=== PATIENT | female | born 1950 | race Caucasian/White ===

== ENCOUNTER 2022-11-15 10:03 | Outpatient (OUT) | payer MEDICARE, OTHER, SELFPAY ==
[2022-11-15 11:28] LABS: Thyroid Stimulating Hormone 1.974 uIU/mL (0.358-3.740)
[2022-11-15 11:35] LABS: Free T4 1.14 ng/dL (0.76-1.46)
== END 2022-11-15 10:04 | disposition home or self-care (01) ==
LOC: LAB 10:08
PROVIDERS: PCP Internal Medicine; Visit Provider Internal Medicine
DX: E21.3 Hyperparathyroidism, unspecified (principal); E89.0 Postprocedural hypothyroidism
CPT/HCPCS: 36415; 82310; 83970; 84439; 84443

== ENCOUNTER 2023-01-02 09:41 | Outpatient (RCR) | payer MEDICARE, OTHER, SELFPAY | END 2023-01-03 13:27 | disposition home or self-care (01) | LOC: PT 09:41 | PROVIDERS: PCP Internal Medicine; Visit Provider Internal Medicine | DX: M43.6 Torticollis (principal) | CPT/HCPCS: 97161 ==

== ENCOUNTER 2023-10-17 07:54 | Outpatient (OUT) | payer MEDICARE, OTHER, SELFPAY ==
[2023-10-17 08:26] LABS: Basophils Percent Auto 0.5 % (0.2-2.0); Eosinophils Absolute Auto 0.2 10^3/uL (0.0-0.7); Eosinophils Percent Auto 3.5 % (0.9-7.0); Hematocrit 45.6 % (36.0-48.0); Hemoglobin 15.5 g/dL (12.0-16.0); Immature Granulocytes Abs Auto 0.01 10^3/uL (0.00-0.03); Immature Granulocytes Pct Auto 0.2 % (0.0-0.5); Lymphocytes Absolute Auto 1.9 10^3/uL (1.2-3.8); Mean Corpuscular Hemoglobin 29.9 pg (26.7-34.0); Mean Corpuscular Volume 87.9 fL (81.0-99.0); Mean Platelet Volume 10.1 fL (9.5-13.5); Monocytes Absolute Auto 0.6 10^3/uL (0.3-0.8); Monocytes Percent Auto 8.9 % (1.7-12.0); Neutrophils Absolute Auto 3.6 10^3/uL (1.4-6.5); Neutrophils Percent Auto 56.9 % (43.0-75.0); Platelet Count 195 10^3/uL (150-450); Red Blood Count 5.19 10^6/uL (4.20-5.40); Red Cell Distribution Width 11.9 % (11.0-15.0); White Blood Count 6.3 10^3/uL (4.0-11.0)
[2023-10-17 08:59] LABS: Alanine Aminotransferase 30 U/L (14-59); Albumin Globulin Ratio 1.2; Albumin Level 3.7 g/dL (3.4-5.0); Alkaline Phosphatase 95 U/L (46-116); Anion Gap 13.9; Aspartate Amino Transferase 17 U/L (15-37); BUN Creatinine Ratio 16.4; Bilirubin Total 1.1 mg/dL (0.2-1.0); Calcium 8.6 mg/dL (8.5-10.1); Carbon Dioxide 25.8 mmol/L (21.0-32.0); Chloride 106 mmol/L (98-107); Chol HDL Ratio 2.9; Cholesterol 163 mg/dL (<=200); Estimated GFR (African America >60 (>=60); Estimated GFR (Non-African Ame >60 (>=60); Globulin 3.2 g/dL; Glucose 99 mg/dL (74-106); HDL Cholesterol 57 mg/dL (40-60); LDL Cholesterol Calculated 85.6 mg/dL; Potassium 3.7 mmol/L (3.5-5.1); Sodium 142 mmol/L (136-145); Thyroid Stimulating Hormone 2.196 uIU/mL (0.358-3.740); Total Protein 6.9 g/dL (6.4-8.2); Triglycerides 102 mg/dL (<=150); VLDL CHOLESTEROL 20.4 mg/dL
[2023-10-17 09:49] LABS: Free T4 1.23 ng/dL (0.76-1.46)
[2023-10-18 12:09] LABS: PTH, Intact 17 pg/mL (15-65)
== END 2023-10-17 07:55 | disposition home or self-care (01) ==
LOC: LAB 07:56
PROVIDERS: PCP Internal Medicine; Visit Provider Internal Medicine
DX: E78.2 Mixed hyperlipidemia (principal); E89.0 Postprocedural hypothyroidism; E55.9 Vitamin D deficiency, unspecified; E21.3 Hyperparathyroidism, unspecified
CPT/HCPCS: 36415; 80053; 80061; 82306; 83970; 84439; 84443; 85025

== ENCOUNTER 2023-12-08 10:43 | Outpatient (OUT) | payer MEDICARE, OTHER, SELFPAY ==
--- OUTSIDE RECORDS SUMMARY | 2023-12-08 10:50 | XMS_ITS | CCD ---
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 Role Phone LISETTE WRIGHT Primary Care Unavailable BRANDON BETANCOURT Admitting Unavailable BRANDON BETANCOURT Attending Unavailable DR JACQUELINE CRUZ Consulting Unavailable BRANDON BETANCOURT Consulting Unavailable DR LISETTE WRIGHT Admitting Amy MAYORGA, DR LISETTE Wilson Attending LISETTE Santana Primary Care Unavailable JORDAN MAYORGA, DR LISETTE Wilson Consulting DO Lisette Olmedo Primary Care Provider DO Lisette Wooten Attending Provider DINORA ESPINAL Attending Unavailable Lisette Wooten Primary Care Unavailable Dinora Espinal Attending Unavailable Dinora Espinal Admitting Unavailable Allergies Allergy Classification Reported Allergen(s) Allergy Type Date of Onset Reaction(s) Facility (1 source) Acetylcysteine Drug Allergy 2 [facility] Repository (2 sources) Diclofenac Drug Allergy 1 Redness of Skin [facility] Repository (2 sources) Acetylcysteine; Translations: [acetylcysteine] Drug Allergy 2 [facility] (1 source) Diclofenac Drug Allergy [address] [place] [address] Repository Medications Current Medications Medication Drug Class(es) Dates Sig (Normalized) Sig (Original) aspirin 81 mg delayed release oral tablet (1 source) Platelet Aggregation Inhibitor, Nonsteroidal Anti-inflammator y Drug Start: 06-29-19 take 81 mg by mouth once daily Aspirin Active 81 MG PO Daily June 27, 2021 11:00pm atorvastatin 40 mg oral tablet (1 source) HMG-CoA Reductase Inhibitor Start: 06-29-19 take 40 mg by mouth once daily at bedtime Atorvastatin Active 40 MG PO Daily at bedtime June 27, 2021 11:00pm biotin 5 mg disintegrating oral tablet (1 source) Start: 06-29-19 take 5000 ug by mouth once daily Biotin Active 5000 MCG PO Daily June 27, 2021 11:00pm Calcium (1 source) Phosphate Binder, Calcium Start: 06-29-19 take 100 mg by mouth once daily Calcium Active 100 MG PO Daily June 27, 2021 11:00pm calcium carbonate 1500 mg / cholecalciferol 0.01 mg oral capsule (1 source) Vitamin D Start: 06-29-19 Calcium Carbonate-Vitamin D3 Active 1 CAP PO As Directed June 27, 2021 11:00pm cholecalciferol 0.05 mg oral tablet (1 source) Vitamin D Start: 06-29-19 take 1 tablet by mouth once daily Cholecalciferol (Vitamin D3) (Vitamin D3) 50 mcg (2,000 unit) Tablet Active 50 MCG PO Daily June 27, 2021 11:00pm ketoconazole 20 mg/ml topical cream (1 source) Azole Antifungal Start: 06-29-19 Ketoconazole Active 1 APPLIC TOPICAL Twice daily June 27, 2021 11:00pm levothyroxine sodium 0.05 mg oral tablet (1 source) l-Thyroxine Start: 06-29-19 take 50 ug by mouth once daily Levothyroxine Active 50 MCG PO Daily June 27, 2021 11:00pm Magnesium (1 source) Start: 06-29-19 take 1 tablet by mouth once daily Magnesium Active 50 TAB PO Daily June 27, 2021 11:00pm methylsulfonylmethane 500 mg oral capsule (1 source) Start: 06-29-19 Methylsulfonylmethane Active 500 MG PO As Directed June 27, 2021 11:00pm Multivitamin preparation (1 source) Start: 06-29-19 take 1 tablet by mouth once daily Multivitamin Active 1 TAB PO Daily June 27, 2021 11:00pm mupirocin 0.02 mg/mg topical ointment (1 source) RNA Synthetase Inhibitor Antibacterial Start: 06-29-19 Mupirocin Active 1 APPLIC TOPICAL Twice daily June 27, 2021 11:00pm Pennington-3 Fatty Acids (1 source) Start: 06-29-19 take 1250 mg by mouth once daily Pennington-3 Fatty Acids Active 1250 MG PO Daily June 27, 2021 11:00pm rOPINIRole 0.25 mg oral tablet (1 source) Nonergot Dopamine Agonist Start: 06-29-19 take 0.25 mg by mouth three times daily Ropinirole Active 0.25 MG PO Three times daily June 27, 2021 11:00pm terbinafine 250 mg oral tablet (1 source) Allylamine Antifungal Start: 06-29-19 take 250 mg by mouth once daily Terbinafine Hcl Active 250 MG PO Daily June 27, 2021 11:00pm Vitamin B Complex (1 source) Start: 06-29-19 take 1 capsule by mouth once daily Vitamin B Complex Active 1 CAP PO Daily June 27, 2021 11:00pm Problems Active Problems Problem Classification Problem Date Documented Date Episodic/Chronic Complications of surgical procedures or medical care (1 source) Postprocedural hypothyroidism; Translations: [POSTPROCEDURAL HYPOTHYROIDISM] Onset: 05-30-2022 Chronic Disorders of lipid metabolism (1 source) Mixed hyperlipidemia; Translations: [MIXED HYPERLIPIDEMIA] Onset: 05-30-2022 Chronic Nutritional deficiencies (4 sources) Vitamin D deficiency, unspecified; Translations: [VITAMIN D DEFICIENCY UNSPECIFIED] Onset: 05-26-2022 Chronic Other and unspecified benign neoplasm (1 source) History of polyp of colon; Translations: [Personal history of colonic polyps] 06-28-2021 Episodic Other endocrine disorders (1 source) Hyperparathyroidism, unspecified; Translations: [HYPERPARATHYROIDISM UNSPECIFIED] Onset: 05-30-2022 Chronic Unclassified (1 source) Encounter for screening mammogram for malignant neoplasm of breast; Translations: [Encounter for screening mammogram for malignant neoplasm of breast] Onset: 06-27-2023 Past or Other Problems Problem Classification Problem Date Documented Da te Episodic/Chronic Abdominal pain (4 sources) Unspecified abdominal pain; Translations: [UNSPECIFIED ABDOMINAL PAIN] Onset: 02-08-2022 Episodic Results Test Name Value Interpretation Reference Range Facil ity MM screening mammo BI w/CADo n 06-27-2023 MM screening mammo BI w/CAD [facility] [address] [place] [id number] Mammography Report Signed Patient: Xiomara Blanco MR#: [id number] : 1950 Acct:[id number] Age/Sex: 73 / F ADM Date: 06/27/23 Loc: [place] Room: Type: [facility] Attending Dr: Dinora Espinal DO Copies to: DO Dinora Santillan DO Ordering Provider: Dinora Espinal DO Date of Service: 06/27/23 MM/MM screening mammo BI w/CAD: SCREENING CLINICAL DATA: Screening for malignancy. SCREENING MAMMOGRAM - FULL FIELD DIGITAL WITH TOMOSYNTHESIS AND CAD COMPARISON:Mammogram s dating back to 2019. Tomosynthesis craniocaudal and mediolateral oblique views of both breasts were obtained using low- dose digital technique. This examination was reviewed with the aid of CAD. FINDINGS: The breast tissue is composed of scattered fibroglandular densities. There are no dominant masses, typically malignant calcifications or architectural distortion. There has been no significant interval change. MM/MM screening mammo BI w/CAD IMPRESSION: NO MAMMOGRAPHIC EVIDENCE OF MALIGNANCY. ROUTINE FOLLOW-UP IS RECOMMENDED IN ONE YEAR. RESULT CODE: 1 Negative DENSITY CODE: 2 (approximately 25-50% glandular) FOLLOW UP: 1YR The false-negative rate of mammography is approximately 10-percent. Management of a palpable abnormality must be based on clinical grounds. Patient was entered into a reminder system with a target due date for the next mammogram. Impression dictated by: Clay Carballo Jr., D.O.06/27/2023 11:40 AM Dictation Location: [facility] Transcribed By: [facility] 06/27/23 1140 Dictated By: Clay Carballo Jr, DO 06/27/23 1138 Signed By: 06/27/23 1140 [facility] PTH INTACTon 05-27-2022 PTH, Intact 12 pg/mL Critically low 15-65 [facility] Comment on above: Performed By: #### P THINT #### [facility] [address] [place] [address] Dr. Sharmila Mitchell FREE T4on 05-26-2022 Free T4 [Mass/Vol] 1.27 ng/dL Normal 0.76-1.46 [facility] Comment on above: Performed By: #### F T4, VITAD #### [facility] [address] [address] [address] Sharmila Mitchell LIPID PROFILEon 05-26-2022 CHOL-HDL RATIO NORM SEE BELOW Normal [facility] Comment on above: Result Comment: 3.3 - 4.4 LOW RISK 4.4 - 7.1 AVERAGE RISK 7.1 - 11.0 MODERATE RISK >11.0 HIGH RISK Performed By: #### L IPID, TSH, CMP #### [facility] [address] [address] [address] Sharmila Mitchell Cholesterol [Mass/Vol] 141 mg/dL Normal <=200 [facility] Comment on above: Performed By: #### L IPID, TSH, CMP #### [facility] [address] [address] [address] Sharmila Mitchell Cholesterol in HDL [Mass/Vol] 56 mg/dL Normal 40-60 [facility] Comment on above: Performed By: #### L IPID, TSH, CMP #### [facility] [address] [address] [address] Sharmila Mitchell Cholesterol in LDL [Mass/Vol] 68.4 mg/dL Normal [facility] Comment on above: Performed By: #### L IPID, TSH, CMP #### [facility] [address] [address] [address] Sharmila Mitchell Cholesterol.total/C holesterol in HDL [Mass ratio] 2.5 {ratio} Normal [facility] Comment on above: Performed By: #### L IPID, TSH, CMP #### [facility] [address] [address] [address] Sharmila Mitchell HDL NORMAL > or = 60 mg/dl - LOW CARDIOVASCULAR RISK <40 mg/dl - HIGH CARDIOVASCULAR RISK Normal [facility] Comment on above: Performed By: #### L IPID, TSH, CMP #### [facility] [address] [address] [address] Sharmila Mitchell LDL CALC NORMAL SEE BELOW Normal [facility] Comment on above: Result Comment: <100 mg/dl OPTIMAL 100 - 129 mg/dl NEAR OR ABOVE OPTIMAL 130 - 159 mg/dl BORDERLINE HIGH 160 - 189 mg/dl HIGH >190 mg/dl VERY HIGH Performed By: #### L IPID, TSH, CMP #### [facility] [address] [place] [address] Dr. Sharmila Mitchell Triglyceride [Mass/Vol] 83 mg/dL Normal <=150 [facility] Comment on above: Performed By: #### L IPID, TSH, CMP #### [facility] [address] [address] [address] Sharmila Mitchell VLDL CALC 16.6 mg/dL Normal [facility] Comment on above: Performed By: #### L IPID, TSH, CMP #### [facility] [address] [place] [address] Dr. Sharmila Mitchell PROF 14(COMP METB)on 023 Albumin [Mass/Vol] 4.1 g/dL Normal 3.4-5.0 [facility] Comment on above: Performed By: #### L IPID, TSH, CMP #### [facility] [address] [place] [address] Dr. Sharmila Mitchell Albumin/Globulin [Mass ratio] 1.3 {ratio} Normal [facility] Comment on above: Performed By: #### L IPID, TSH, CMP #### [facility] [address] [place] [address] Dr. Sharmila Mitchell ALP [Catalytic activity/Vol] 84 U/L Normal 46-116 [facility] Comment on above: Performed By: #### L IPID, TSH, CMP #### [facility] [address] [place] [address] Dr. Sharmila Mitchell ALT [Catalytic activity/Vol] 26 U/L Normal 14-59 [facility] Comment on above: Performed By: #### L IPID, TSH, CMP #### [facility] [address] [place] [address] Dr. Sharmila Mitchell Anion gap [Moles/Vol] 14.3 mmol/L Normal [facility] Comment on above: Performed By: #### L IPID, TSH, CMP #### [facility] [address] [place] [address] Dr. Sharmila Mitchell AST [Catalytic activity/Vol] 18 U/L Normal 15-37 [facility] Comment on above: Performed By: #### L IPID, TSH, CMP #### [facility] [address] [place] [address] Dr. Sharmila Mitchell Bilirubin [Mass/Vol] 1.0 mg/dL Normal 0.2-1.0 [facility] Comment on above: Performed By: #### L IPID, TSH, CMP #### [facility] [address] [place] [address] Dr. Sharmila Mitchell Calcium [Mass/Vol] 9.2 mg/dL Normal 8.5-10.1 [facility] Comment on above: Performed By: #### L IPID, TSH, CMP #### [facility] [address] [place] [address] Dr. Sharmila Mitchell Chloride [Moles/Vol] 105 mmol/L Normal 98-107 [facility] Comment on above: Performed By: #### L IPID, TSH, CMP #### [facility] [address] [place] [address] Dr. Sharmila Mitchell CO2 [Moles/Vol] 25.4 mmol/L Normal 21.0-32.0 [facility] Comment on above: Performed By: #### L IPID, TSH, CMP #### [facility] [address] [place] [address] Dr. Sharmila Mitchell Creatinine [Mass/Vol] 0.69 mg/dL Normal 0.55-1.02 [facility] Comment on above: Performed By: #### L IPID, TSH, CMP #### [facility] [address] [place] [address] Dr. Sharmila Mitchell EGFR-AF [place] CITIZ[place] >60 Normal >=60 [facility] Comment on above: Performed By: #### L IPID, TSH, CMP #### [facility] [address] [place] [address] Dr. Sharmila Mitchell EGFR-NON AF [place] CITIZ[place] >60 Normal >=60 [facility] Comment on above: Performed By: #### L IPID, TSH, CMP #### [facility] [address] [address] [address] Sharmila Mitchell Globulin (S) [Mass/Vol] 3.1 g/dL Normal [facility] Comment on above: Performed By: #### L IPID, TSH, CMP #### [facility] [address] [place] [address] Dr. Sharmila Mitchell Glucose [Mass/Vol] 103 mg/dL Normal 74-106 [facility] Comment on above: Performed By: #### L IPID, TSH, CMP #### [facility] [address] [place] [address] Dr. Sharmila Mitchell Potassium [Moles/Vol] 3.7 mmol/L Normal 3.5-5.1 [facility] Comment on above: Performed By: #### L IPID, TSH, CMP #### [facility] [address] [place] [address] Dr. Sharmila Mitchell Protein [Mass/Vol] 7.2 g/dL Normal 6.4-8.2 [facility] Comment on above: Performed By: #### L IPID, TSH, CMP #### [facility] [address] [place] [address] Dr. Sharmila Mitchell Sodium [Moles/Vol] 141 mmol/L Normal 136-145 [facility] Comment on above: Performed By: #### L IPID, TSH, CMP #### [facility] [address] [place] [address] Dr. Sharmila Mitchell Urea nitrogen [Mass/Vol] 10.0 mg/dL Normal 7.0-18.0 [facility] Comment on above: Performed By: #### L IPID, TSH, CMP #### [facility] [address] [place] [address] Dr. Sharmila Mitchell Urea nitrogen/Creatinine [Mass ratio] 14.5 mg/mg Normal [facility] Comment on above: Performed By: #### L IPID, TSH, CMP #### [facility] [address] [place] [address] Dr. Sharmila Mitchell TSHon 05-26-2022 TSH 1.836 uIU/mL Normal 0.358-3.740 [facility] Comment on above: Performed By: #### L IPID, TSH, CMP #### [facility] [address] [place] [address] Dr. Sharmila Mitchell VITAMIN D 25 OHon 05-26-2022 VIT D 25-OH 67.7 ng/mL Normal [facility] Comment on above: Performed By: #### F T4, VITAD #### [facility] [address] [place] [address] Dr. Sharmila Mitchell VIT D RANGES SEE BELOW Normal [facility] Comment on above: Result Comment: <20 ng/mL Vit D deficient 20 - <30 ng/mL Vit D insufficient 30 - 100 ng/mL Vit D sufficient >100 ng/mL Potential Toxicity Performed By: #### F T4, VITAD #### [facility] [address] [place] [address] Dr. Sharmila Mitchell CBC AUTO DIFFon 02-08-2022 BASO # 0.0 103/ul Normal 0.0-0.1 [facility] Comment on above: Performed By: #### CHAITANYA SALINASRO #### [facility] [address] [place] [address] Dr. Sharmila Mitchell Basophils/100 WBC (Bld) 0.3 % Normal 0.2-2.0 [facility] Comment on above: Performed By: #### Arik RAYGOZA UMICRO #### [facility] [address] [place] [address] Dr. Sharmila Mitchell EO # 0.2 103/ul Normal 0.0-0.7 [facility] Comment on above: Performed By: #### Arik RAYGOZA UMICRO #### [facility] [address] [place] [address] Dr. Sharmila Mitchell Eosinophils/100 WBC (Bld) 2.6 % Normal 0.9-7.0 [facility] Comment on above: Performed By: #### CHAITANYA SALINASRO #### [facility] [address] [place] [address] Dr. Sharimla Mitchell Erythrocyte distribution width (RBC) [Ratio] 12.2 % Normal 11.0-15.0 [facility] Comment on above: Performed By: #### CHAITANYA SALINASRO #### [facility] [address] [place] [address] Dr. Sharmila Mitchell Hematocrit (Bld) [Volume fraction] 47.2 % Normal 36.0-48.0 [facility] Comment on above: Performed By: #### Arik RAYGOZA UMICRO #### [facility] [address] [place] [address] Dr. Sharmila Mitchell Hemoglobin (Bld) [Mass/Vol] 16.3 g/dL Critically high 12.0-16.0 [facility] Comment on above: Performed By: #### Arik RAYGOZA UMICRO #### [facility] [address] [place] [address] Dr. Sharmila Mitchell IG # 0.02 10e3/ul Normal 0.00-0.03 [facility] Comment on above: Performed By: #### Arik RAYGOZA UMICRO #### [facility] [address] [place] [address] Dr. Sharmila Mitchell IG % 0.3 % Normal 0.0-0.5 [facility] Comment on above: Performed By: #### Arik RAYGOZA UMICRO #### [facility] [address] [place] [address] Dr. Sharmila Mitchell LYMPH # 1.9 103/ul Normal 1.2-3.8 [facility] Comment on above: Performed By: #### Arik RAYGOZA UMICRO #### [facility] [address] [place] [address] Dr. Sharmila Mitchell Lymphocytes/100 WBC (Bld) 28.4 % Normal 20.5-60.0 [facility] Comment on above: Performed By: #### Arik RAYGOZA UMICRO #### [facility] [address] [place] [address] Dr. Sharmila Mitchell MANUAL DIFF REQ NO Normal [facility] Comment on above: Performed By: #### Arik RAYGOZA UMICRO #### [facility] [address] [place] [address] Dr. Sharmila Mitchell MCH (RBC) [Entitic mass] 30.0 pg Normal 26.7-34.0 [facility] Comment on above: Performed By: #### Arik RAYGOZA UMICRO #### [facility] [address] [place] [address] Dr. Sharmila Mitchell MCHC (RBC) [Mass/Vol] 34.5 g/dL Normal 29.9-35.2 [facility] Comment on above: Performed By: #### Arik RAYGOZA UMICRO #### [facility] [address] [place] [address] Dr. Sharmila Mitchell MCV (RBC) [Entitic vol] 86.9 fL Normal 81.0-99.0 [facility] Comment on above: Performed By: #### Arik RAYGOZA UMICRO #### [facility] [address] [place] [address] Dr. Sharmila Mitchell MONO # 0.5 103/ul Normal 0.3-0.8 [facility] Comment on above: Performed By: #### Arik RAYGOZA UMICRO #### [facility] [address] [place] [address] Dr. Sharmila Mitchell Monocytes/100 WBC (Bld) 8.2 % Normal 1.7-12.0 [facility] Comment on above: Performed By: #### Arik RAYGOZA UMICRO #### [facility] [address] [place] [address] Dr. Sharmila Mitchell NEUT # 4.0 103/ul Normal 1.4-6.5 [facility] Comment on above: Performed By: #### Arik RAYGOZA UMICRO #### [facility] [address] [place] [address] Dr. Sharmila Mitchell Neutrophils/100 WBC (Bld) 60.2 % Normal 43.0-75.0 [facility] Comment on above: Performed By: #### Arik RAYGOZA UMICRO #### [facility] [address] [place] [address] Dr. Sharmila Mitchell Platelet mean volume (Bld) [Entitic vol] 10.3 fL Normal 9.5-13.5 [facility] Comment on above: Performed By: #### ZARINA SALINAS #### [facility] [address] [address] [address] Sharmila Mitchell PLT 241 103/ul Normal 150-450 [facility] Comment on above: Performed By: #### CHAITANYA SALINASRO #### [facility] [address] [address] [address] Sharmila Mitchell RBC 5.43 106/ul Critically high 4.20-5.40 [facility] Comment on above: Performed By: #### CHAITANYA SALINASRO #### [facility] [address] [address] [address] Sharmila Mitchell WBC 6.6 103/ul Normal 4.0-11.0 [facility] Comment on above: Performed By: #### CHAITANYA SALINASRO #### [facility] [address] ABD/PELVIS WO CONon 02-08 CT ABD/PELVIS WO CON EXAMINATION: CT ABD/PELVIS WO CON HISTORY: CALCULUS OF KIDNEY ; acute right flank pain COMPARISON: No relevant comparison available. TECHNIQUE: Axial, Coronal, and Sagittal images were obtained without and/or with IV contrast as indicated by examination type. Dose reduction techniques were achieved by using automated exposure control and/or adjustment of mA and/or kV according to patient size and/or use of iterative reconstruction technique. FINDINGS: LUNG BASES: Calcified granuloma within posterior-lateral left lung base. No acute infiltrates or mass. LIVER: No enlargement, atrophy, suspicious density, or significant focal lesion. BILIARY: No dilatation or calcification. PANCREAS: No lesion, fluid collection, or abnormal duct dilatation. SPLEEN: No enlargement or focal lesion. ADRENALS: No mass or enlargement. KIDNEYS: Right kidney contains a 5.1 cm benign-appearing cyst. Several tiny nonobstructing stones within left kidney and a 4 mm fatty lesion; lipoma versus angiomyolipoma. Unremarkable ureters. BOWEL/MESENTERY: No visible mass, obstruction, or bowel wall thickening. AORTA/VASCULAR: No aneurysm or dissection. RETROPERITONEUM: No mass or adenopathy. LYMPH NODES: No adenopathy. URINARY BLADDER: No visible focal wall thickening, lesion, or calculus. PELVIC ORGANS: No visible mass. Pelvic organs appropriate for patient age. ABDOMINAL WALL: Small fat filled paraumbilical hernia without strangulation. BONES: Multilevel degenerative disc disease and facet arthropathy of the lumbar spine, with suspected marked central canal narrowing at L2-L3 and marked bilateral foramen narrowing L5-S1. OTHER: Negative. IMPRESSION: 1. Nonobstructing left nephrolithiasis. No acute findings to account for patient's right flank symptoms. 2. Small fat filled paraumbilical hernia without bowel involvement or strangulation. 3. Degenerative changes of lumbar spine resulting in areas of marked central canal and foraminal stenosis. Electronically authenticated by: JACQUELINE CRUZ Date: 2022-02-08 08:59 Normal [facility] URINE PROFILEon 2 Bilirubin Ql (U) Negative Normal NEGATIVE [facility] Comment on above: Performed By: #### ZARINA SALINAS #### [facility] [address] [place] [address] Dr. Sharmila Mitchell Clarity (U) CLEAR Normal CLEAR [facility] Comment on above: Performed By: #### ZARINA SALINAS #### [facility] [address] [place] [address] Dr. Sharmila Mitchell Color (U) LT. YELLOW Normal YELLOW [facility] Comment on above: Performed By: #### ZARINA SALINAS #### [facility] [address] [place] [address] Dr. Sharmila Mitchell ERUAHD A micrscopic examination will be performed if indicated. Normal [facility] Comment on above: Performed By: #### ZARINA SALINAS #### [facility] [address] [place] [address] Dr. Sharmila Mitchell Glucose Ql (U) Negative Normal NEGATIVE [facility] Comment on above: Performed By: #### CHAITANYA SALINASRO #### [facility] [address] [place] [address] Dr. Sharmila Mitchell Hemoglobin Ql (U) TRACE-LYSED Abnormal NEGATIVE [facility] [facility] Comment on above: Performed By: #### Arik RAYGOZA, UMICRO #### [facility] [address] [place] [address] Dr. Sharmila Mitchell Ketones Ql (U) Negative Normal NEGATIVE [facility] Comment on above: Performed By: #### Arik RAYGOZA, UMICRO #### [facility] [address] [place] [address] Dr. Sharmila Mitchell LEUKOCYTES Negative Normal NEGATIVE [facility] Comment on above: Performed By: #### E JARET, UMICRO #### [facility] [address] [place] [address] Dr. Sharmila Mitchell Nitrite Ql (U) Negative Normal NEGATIVE [facility] Comment on above: Performed By: #### Arik RAYGOZA UMICRO #### [facility] [address] [place] [address] Dr. Sharmila Mitchell pH (U) 6.0 [pH] Normal 5-9 [facility] Comment on above: Performed By: #### Arik RAYGOZA UMICRO #### [facility] [address] [place] [address] Dr. Sharmila Mitchell SPEC GRAVITY 1.015 Normal 1.005-<=1.025 [facility] Comment on above: Performed By: #### Arik RAYGOZA UMICRO #### [facility] [address] [place] [address] Dr. Sharmila Mitchell UA PROTEIN Negative Normal NEGATIVE/ TRACE [facility] Comment on above: Performed By: #### Arik RAYGOZA UMICRO #### [facility] [address] [place] [address] Dr. Sharmila Mitchell UR MICRO IND INDICATED Normal [facility] Comment on above: Performed By: #### Arik RAYGOZA UMICRO #### [facility] [address] [place] [address] Dr. Sharmila Mitchell Urobilinogen Qn (U) 0.2 {Mateo'U}/dL Normal 0.2 - 1. 0 [facility] Comment on above: Performed By: #### E ZARINA RAYGOZA #### [facility] [address] [address] [address] Sharmila Mitchell PROF CHEM 8 (BAS METB)on Anion gap [Moles/Vol] 16.3 mmol/L Normal [facility] Comment on above: Performed By: #### B MP #### [facility] [address] [address] [address] Sharmila Mitchell Calcium [Mass/Vol] 8.6 mg/dL Normal 8.5-10.1 [facility] Comment on above: Performed By: #### B MP #### [facility] [address] [address] [address] Sharmila Mitchell Chloride [Moles/Vol] 106 mmol/L Normal 98-107 [facility] Comment on above: Performed By: #### B MP #### [facility] [address] [address] [address] Sharmila Mitchell CO2 [Moles/Vol] 24.6 mmol/L Normal 21.0-32.0 [facility] Comment on above: Performed By: #### B MP #### [facility] [address] [address] [address] Sharmila Mitchell Creatinine [Mass/Vol] 0.80 mg/dL Normal 0.55-1.02 [facility] Comment on above: Performed By: #### B MP #### [facility] [address] [address] [address] Sharmila Mitchell EGFR-AF [place] CITIZ[place] >60 Normal >=60 [facility] Comment on above: Performed By: #### B MP #### [facility] [address] [address] [address] Sharmila Mitchell EGFR-NON AF [place]IZ[place] >60 Normal >=60 [facility] Comment on above: Performed By: #### B MP #### [facility] [address] [address] [address] Sharmila Mitchell Glucose [Mass/Vol] 107 mg/dL Critically high 74-106 [facility] Comment on above: Performed By: #### B MP #### [facility] [address] [address] [address] Sharmila Mitchell Potassium [Moles/Vol] 3.9 mmol/L Normal 3.5-5.1 [facility] Comment on above: Performed By: #### B MP #### [facility] [address] [place] [address] Dr. Sharmila Mitchell Sodium [Moles/Vol] 143 mmol/L Normal 136-145 [facility] Comment on above: Performed By: #### B MP #### [facility] [address] [place] [address] Dr. Sharmila Mitchell Urea nitrogen [Mass/Vol] 12.0 mg/dL Normal 7.0-18.0 [facility] Comment on above: Performed By: #### B MP #### [facility] [address] [place] [address] Dr. Sharmila Mitchell Urea nitrogen/Creatinine [Mass ratio] 15.0 mg/mg Normal [facility] Comment on above: Performed By: #### B MP #### [facility] [address] [place] [address] Dr. Sharmila Mitchell URINE MICROSCOPIC ONLYon BACTERIA NONE SEEN Normal NONE SEEN [facility] Comment on above: Performed By: #### CHAITANYA SALINASRO #### [facility] [address] [place] [address] Dr. Sharmila Mitchell Bacteria identified Cx Nom (U) NOT INDICATED Normal [facility] Comment on above: Performed By: #### CHAITANYA SALINASRO #### [facility] [address] [place] [address] Dr. Sharmila Mitchell CAST NONE SEEN Normal NONE SEEN [facility] Comment on above: Performed By: #### Arik RAYGOZA UMWILLRO #### [facility] [address] [place] [address] Dr. Sharmila Mitchell Crystals LM Nom (Urine sed) NONE SEEN Normal NONE SEEN [facility] Comment on above: Performed By: #### Arik RAYGOZA UMICRO #### [facility] [address] [place] [address] Dr. Sharmila Mitcehll Epithelial cells LM Ql (Urine sed) NONE SEEN Normal NONE SEEN /RARE [facility] Comment on above: Performed By: #### E RUR, UMICRO #### [facility] [address] [address] [address] Sharmila Mitchell MUCOUS NONE SEEN Normal NONE SEEN [facility] Comment on above: Performed By: #### E RUR, UMICRO #### [facility] [address] [address] [address] Sharmila Mitchell RBC 0-2 Normal 0-2 [facility] Comment on above: Performed By: #### E RUR, UMICRO #### [facility] [address] [address] [address] Sharmila Mitchell WBC NONE SEEN Normal NONE SEEN [facility] Comment on above: Performed By: #### E RUR, UMICRO #### [facility] [address] [address] [address] Sharmila Mitchell Encounters Encounter Date Encounter Type Care Provider Facility Start: 06-27-2023 End: 06-27-2023 ambulatory Lisette Wooten Facility:[facility] Start: 04-28-2023 End: 04-28-2023 ambulatory DINORA ESPINAL Not Available Start: 06-24-2022 End: 06-24-2022 ambulatory DO Lisette Wooten Work Phone: [facility] Work Phone: Start: 06-24-2022 End: 06-24-2022 Patient encounter procedure DO Lisette Wooten Work Phone: [facility] Work Phone: Start: 05-26-2022 End: 05-27-[address] LISETTE MAYORGA Facility:[facility] Start: 02-08-2022 End: 02-08-2022 ambulatory LISETTE MAYORGA Facility:[facility] Procedures Date Procedure Procedure Detail Performing Clinician Start: 06-24-2022 Screening mammograph y of bilateral breasts DO Lisette Wooten Work Phone: Immunizations Immunization Date Immunization Notes Care Provider Tracy gonsalez 07-07-2020 COVID-19 mRNA, Comirnaty (Pfizer) DO Lisette MurciaAlanis Work Phone: [facility] 06-15-2020 COVID-19 mRNA, Comirnaty (Pfizer) DO Lisette Sugar Work Phone: [facility] Payers Date Payer Category Payer Self-pay [id number] 2022 Unknown [id number] 1960 Medicare [id number] 1960 Unknown [id number] 1950 Unknown [id number] 1950 Unknown [id number] 1950 Unknown [id number] Private Health Insurance [facility] [id number] Unknown [id number] Social History Date Type Detail Facility Start: [facility]28-[facility]21 [facility] Start: 1950 Sex Assigned At Female F [facility] Evaluation note Note Date & Type Note Facility Evaluation note No assessment information availa ble [facility] Work Phone: Summary Purpose Family History No Family History Records Found Relationship Condition Age at Onset Recorded Date/T radha father Myocardial infarction Unknown Not Specified Lymphoma Unknown sister Rheumatoid arthritis Unknown brother Rheumatoid arthritis Unknown brother Malignant neoplasm of urinary bladder Unk nown sister Hypothyroidism Unknown Advance Directives No Advanced Directives Records Found Advance Directive Response Recorded Date/ Time Advance Directives No March 9:13am Chief Complaint and Reason for Visit Chief Complaint Z12.31 Additional Source Comments INFORMATION SOURCE (unrecogn ized section and content) DATE CREATED AUTHOR 05/30/2022 [facility] DATE CREATED AUTHOR AUTHOR'S ORGANIZ ATION 05/01/2023 [facility] EPIC DATE CREATED AUTHOR AUTHOR'S ORGANIZ ATION 06/30/2023 [facility] Care Teams (unrecognized sec tion and content) Team Status: Active Member Role Status Dates Lisette Wooten , DO Primary Care Provider Active Team Status: Inactive Member Role Status Dates Lisette Wooten , DO Primary Care Provider, Attend ing Provider Active Goals (unrecognized section and content) Goals may be documented in a n alternate section FOR RECORDS PERTAINING TO PATIENTS WHO ARE OR HAVE BEEN ENROLLED IN A CHEMICAL DEPENDENCY/SUBSTANCEABUSE PROGRAM, SOME INFORMATION MAY BE OMITTED. This clinical summary was aggregated from multiple sources. Caution should be exercised in using it in the provision of clinical care. This summary normalizes information from multiple sources, and as a consequence, information in this document may materially change the coding, format and clinical context of patient data. In addition, data may be omitted in some cases. CLINICAL DECISIONS SHOULD BE BASED ON THE PRIMARY CLINICAL RECORDS. [employer] provides no warranty or guarantee of the accuracy or completeness of information in this document.
--- NOTE | 2023-12-08 11:08 | XR_ITS ---
[address] [address] Patient Name: VALENTINE JARAMILLO MRN: [id number] date: 1950 Sex: F Assigned Patient Location: [facility] Current Patient Location: Accession/Order Number: [id number] Exam Date: 12/08/2023 11:00 Report Date: 12/10/2023 20:41 At the request of: ASHLI MAYORGA Procedure: XR hip RT min 2V PROCEDURE: XR hip RT min 2V COMPARISON: None. HISTORY: Right Hip Pain M25.551 FINDINGS: BONES:No acute fracture or dislocation. Moderate osteoarthritis with joint space narrowing marginal osteophyte formation and sclerosis. SOFT TISSUES:Negative. No visible soft tissue swelling. EFFUSION:None visible. OTHER: Negative. XR/XR hip RT min 2V IMPRESSION: Moderate osteoarthritis Electronically authenticated by: GILDARDO HOLLAND Date: 12/10/2023 20:41
== END 2023-12-08 10:44 | disposition home or self-care (01) ==
LOC: RAD 10:45
PROVIDERS: PCP Internal Medicine; Visit Provider Internal Medicine
DX: M25.551 Pain in right hip (principal); M16.11 Unilateral primary osteoarthritis, right hip
CPT/HCPCS: 73502

== ENCOUNTER 2024-06-03 13:11 | Outpatient (RCR) | payer MEDICARE, OTHER, SELFPAY | END 2024-06-04 14:24 | disposition home or self-care (01) | LOC: PT 13:11 | PROVIDERS: PCP Internal Medicine | DX: M54.16 Radiculopathy, lumbar region (principal) | CPT/HCPCS: 97161 ==

== ENCOUNTER 2024-06-19 10:43 | Outpatient (OUT) | payer MEDICARE, OTHER, SELFPAY ==
--- OUTSIDE RECORDS SUMMARY | 2024-06-19 10:47 | XMS_ITS | CCD ---
Author Organization [facility] Care Team Providers Care Route Clerk Name Role Phone LISETTE WRIGHT Primary Care Unavailable BRANDON BETANCOURT Admitting Unavailable BRANDON BETANCOURT Attending Unavailable ANTHONY, DR JACQUELINE Velasquez Consulting Unavailable BRANDON BETANCOURT Consulting Unavailable DR LISETTE WRIGHT Admitting Amy MAYORGA, DR LISETTE Wilson Attending LISETTE Santana Primary Care Unavailable DIVINA MAYORGA, DR LISETTE Wilson Consulting DO Lisette Olmedo Primary Care Provider DO Lisette Wooten Attending Provider Lisette Wooten Primary Care Unavailable Blaise Heredia Attending Unavailable Blaise Heredia Admitting Unavailable Lisette Wooten DO Unavailable Lisette Wooten DO Primary Care Provider Shanon Lobo LPN Unavailable Nela Alfredo MD Unavailable Jacqueline Ramos MD Unavailable Jae Seymour MD Unavailable Blaise Heredia DO Unavailable [phone] Unavailable Primary Care Provider UnavailLisette Hayes DO Primary Care Provider LISETTE WRIGHT Primary Care Unavailab LISA Iqbal Referring Unavailable LISA RAMON Attending Unavailable JERZY HODGES Attending UnavailLISETTE Hayes Primary Care Unavailab JERZY Berry Referring Unavailabl e MURCIA MUKESH LISETTE Steve Primary Care Unavailab JERZY Berry Referring Unavailabl JERZY Kohler Attending Unavailabl e [place] GAIL MAYORGARA D Primary Care Unavailab CLARICE Mckeon Attending Unavailab JERZY Berry Referring Unavailabl e [place] MUKESH LISETTE D Primary Care Unavailab JERZY Berry Attending Unavailabl e JERZY HODGES Attending Unavailabl e [place] EMERMalik LISETTE D Primary Care Unavailab le [place]URCIA-EMERY LISETTE Steve Attending Unavailab le MURCIA-EMERLISETTE Redding Attending Unavailab le MURCIA-EMERLISETTE Rdeding Referring Unavailab le BROWNPÉREZ Referring Unavailable BROWNPÉREZ Attending Unavailable LISETTE WOOTEN Referring Unavailab le BROWNPÉREZ A Referring Unavailable BLACKSSERGEY PATEL Attending Unavailable BROWNHERACLIOPÉREZ A Referring Unavailable BLACKSTONSERGEY Attending Unavailable BROWN PÉREZ A Referring Unavailable BLACKSTON, SERGEY T Attending Unavailable BROWN, PÉREZ A Referring Unavailable BLACKSTON, SERGEY T Attending Unavailable BROWN, PÉREZ A Referring Unavailable BLACKSTON, SERGEY T Attending Unavailable BROWN, PÉREZ A Referring Unavailable BLACKSTON, SERGEY T Attending Unavailable BROWN, PÉREZ A Referring Unavailable BLACKSTON, SERGEY T Attending Unavailable BROWN, PÉREZ A Referring Unavailable BLACKSTON, SERGEY T Attending Unavailable BROWN, PÉREZ A Referring Unavailable BROWN PÉREZ A Attending Unavailable Allergies Allergy Classification Reported Allergen(s) Allergy Type Date of Onset Reaction(s) Facility (1 source) Acetylcysteine Drug Allergy 2 [facility] Repository (4 sources) Diclofenac; Translations: [DICLOFENAC] Drug Allergy 1 Redness of Skin [facility] Repository (20 sources) Acetylcysteine; Translations: [acetylcysteine] Drug Allergy 2 [facility] (1 source) Diclofenac Drug Allergy 2 [facility] Repository (20 sources) Amantadine Drug Allergy 2 [facility] (20 sources) Diclofenac Drug Allergy 2 Other (See Comments) [facility] Medications Current Medications Medication Drug Class(es) Dates Sig (Normalized) Sig (Original) aspirin 81 mg delayed release oral tablet (20 sources) Platelet Aggregation Inhibitor, Nonsteroidal Anti-inflammatory Drug Start: 06-28-2021 take 81 mg by mouth once daily Aspirin Active 81 MG PO Daily June 27, 2021 11:00pm atorvastatin 40 mg oral tablet (20 sources) HMG-CoA Reductase Inhibitor Start: 06-28-2021 End: 03-07-2024 take 1 tablet by mouth once daily atorvastatin (Lipitor) 40 MG tablet Indications: Mixed hyperlipidemia (CMS/HCC) TAKE 1 TABLET BY MOUTH EVERY DAY 90 tablet 3 03/07/2024 Active betamethasone 0.5 mg/ml / clotrimazole 10 mg/ml topical cream (20 sources) Azole Antifungal, Corticosteroid Start: 12-08-2023 clotrimazole-betame thasone (Lotrisone) cream Indications: Rash and nonspecific skin eruption Apply topically 2 (two) times a day 15 g 1 12/08/2023 Active biotin 5 mg disintegrating oral tablet (1 source) Start: 06-28-2021 take 5000 ug by mouth once daily Biotin Active 5000 MCG PO Daily June 27, 2021 11:00pm Biotin w/ Vitamins C & E (Hair Skin & Nails Gummies) 1250-7.5-7.5 MCG-MG-UNT chewable tablet (20 sources) Biotin w/ Vitami ns C & E (Hair Skin & Nails Gummies) 1250-7.5-7.5 MCG-MG-UNT chewable tablet Chew 1 tablet 1 (one) time each day at the same time. Active Calcium (1 source) Phosphate Binder, Calcium Start: 06-28-2021 take 100 mg by mouth once daily Calcium Active 100 MG PO Daily June 27, 2021 11:00pm calcium carbonate 1500 mg / cholecalciferol 0.01 mg oral capsule (6 sources) Vitamin D Start: 06-28-2021 Calcium Carbonate-Vitamin D3 Active 1 CAP PO As Directed June 27, 2021 11:00pm take 1 tablet by clayton th twice daily at mealtime calcium-vitamin D (OS-CYRUS +D) 250 mg-3.1 25 mcg (125 unit) Tab Take 1 (one) tablet by mouth 2 (two) times a day with meals . Active calcium citrate 1040 mg oral tablet (20 sources) take 2 tablets by mouth three times weekly calcium citrate 1040 MG tablet Take 2 tablets by mouth 3 (three) times a week. Active calcium citrate 1500 mg / cholecalciferol 200 unt oral tablet (5 sources) Vitamin D take 1 tablet by mouth twice daily calcium citrate-vitamin D (CITRACAL+D) 315 mg-5 mcg (200 unit) per tablet Take 1 (one) tablet by mouth 2 (two) times a day . Active cetirizine hydrochloride 10 mg oral tablet (5 sources) Histamine-1 Receptor Antagonist take 1 tablet by mouth once daily cetirizine (ZYRTEC) 10 MG tablet Take 1 (one) tablet (10 mg total) by mouth daily . Active cholecalciferol 0.05 mg oral tablet (20 sources) Vitamin D Start : 06-28 take 1 tablet by mouth once daily Cholecalciferol (Vitamin D3) (Vitamin D3) 50 mcg (2,000 unit) Tablet Active 50 MCG PO Daily June 27, 2021 11:00pm ibuprofen 800 mg oral tablet (20 sources) Nonsteroidal Anti-inflammatory Drug take 1 tablet by mouth every eight hours as needed for pain and pain ibuprofen 800 MG tablet Take 800 mg by mouth every 8 (eight) hours if needed for mild pain or moderate pain. Active ketoconazole 20 mg/ml topical cream (1 source) Azole Antifungal Start : 06-28 Ketoconazole Active 1 APPLIC TOPICAL Twice daily June 27, 2021 11:00pm levothyroxine sodium 0.05 mg oral tablet (20 sources) l-Thyroxine Start : 06-28 take 1 tablet by mouth once daily levothyroxine (Synthroid, Levoxyl) 50 MCG tablet Indications: Postoperative hypothyroidism (CMS/HCC) TAKE 1 TABLET BY MOUTH EVERY DAY 90 tablet 4 07/10/2023 Active Magnesium (1 source) Start : 06-28 take 1 tablet by mouth once daily Magnesium Active 50 TAB PO Daily June 27, 2021 11:00pm meloxicam 15 mg oral tablet (4 sources) Nonsteroidal Anti-inflammatory Drug Start : 05-22 End: 06-06 take 1 tablet by mouth once daily meloxicam (MOBIC) 15 MG tablet Indications: Lumbar radicular pain Take 1 (one) tablet (15 mg total) by mouth daily for 15 days . 15 tablet 2024 06/06/2024 Active methylsulfonylmethane 500 mg oral capsule (1 source) Start : 06-28 Methylsulfonylmethane Active 500 MG PO As Directed June 27, 2021 11:00pm Multiple Vitamin (multivitamin) capsule (20 sources) take 1 capsule by mouth in the morning Multiple Vitamin (multivitamin) capsule Take 1 capsule by mouth in the morning. Active multivitamin per tablet (5 sources) take 1 tablet by mouth once daily multivitamin per tablet Take 1 (one) tablet by mouth daily . Active Multivitamin preparation (1 source) Start : 06-28 take 1 tablet by mouth once daily Multivitamin Active 1 TAB PO Daily June 27, 2021 11:00pm multivitamin with minerals tablet (5 sources) take 1 tablet by mouth once daily multivitamin with minerals tablet Take 1 (one) tablet by mouth daily . Active mupirocin 0.02 mg/mg topical ointment (1 source) RNA Synthetase Inhibitor Antibacterial Start : 06-28 Mupirocin Active 1 APPLIC TOPICAL Twice daily June 27, 2021 11:00pm [place]-3 Fatty Acids (1 source) Start : 06-28 take 1250 mg by mouth once daily [place]-3 Fatty Acids Active 1250 MG PO Daily June 27, 2021 11:00pm [place]-3 Fatty Acids (Fish Oil) 1200 MG capsule delayed-release (20 sources) [place]-3 Fatty Ac ids (Fish Oil) 1200 MG capsule delayed-release Take by mouth Daily. Active psyllium 3400 mg powder for oral suspension (20 sources) take 1 dose by mouth once daily psyllium (Metamucil) 48.57 % powder Take 1 Dose by mouth 1 (one) time each day at the same time. Active rOPINIRole 0.25 mg oral tablet (1 source) Nonergot Dopamine Agonist Start : 06-28 take 0.25 mg by mouth three times daily Ropinirole Active 0.25 MG PO Three times daily June 27, 2021 11:00pm terbinafine 250 mg oral tablet (1 source) Allylamine Antifungal Start : 06-28 take 250 mg by mouth once daily Terbinafine Hcl Active 250 MG PO Daily June 27, 2021 11:00pm UNABLE TO FIND (20 sources) take 1 tablet by mouth once daily UNABLE TO FIND Take 1 tablet by mouth Daily Balance of nature Active Vitamin B Complex (1 source) Start : 06-28 take 1 capsule by mouth once daily Vitamin B Complex Active 1 CAP PO Daily June 27, 2021 11:00pm Problems Active Problems Problem Classification Problem Date Documented Date Episodic/Chronic Administrative/social admission (20 sources) Patient encounter status; Translations: [Other specified counseling] Onset: 12-10-2023 12-10-2023 Episodic Complications of surgical procedures or medical care (20 sources) Postprocedural hypothyroidism; Translations: [Postoperative hypothyroidism] Onset: 05-30-2022 12-10-2023 Chronic Disorders of lipid metabolism (20 sources) Mixed hyperlipidemia; Translations: [Mixed hyperlipidemia] Onset: 05-30-2022 12-10-2023 Chronic Menopausal disorders (20 sources) Genitourinary syndrome of menopause; Translations: [Other specified menopausal and perimenopausal disorders] Onset: 11-29-2022 12-07-2022 Chronic Nutritional deficiencies (20 sources) Vitamin D deficiency, unspecified; Translations: [Vitamin D deficiency] Onset: 05-26-2022 Chronic Osteoarthritis (20 sources) Arthritis of left knee; Translations: [Unilateral primary osteoarthritis, left knee] Onset: 11-29-2022 11-29-2022 Chronic Other and unspecified benign neoplasm (1 source) History of polyp of colon; Translations: [Personal history of colonic polyps] 06-28-2021 Episodic Other connective tissue disease (2 sources) History of cervical spine fusion; Translations: [Arthrodesis status] 2024 Episodic Other endocrine disorders (1 source) Hyperparathyroidism, unspecified; Translations: [HYPERPARATHYROIDISM UNSPECIFIED] Onset: 05-30-2022 Chronic Other endocrine disorders (20 sources) Hyperparathyroidism; Translations: [Hyperparathyroidism, unspecified] Onset: 06-05-2008 12-10-2023 Chronic Other hereditary and degenerative nervous system conditions (20 sources) Essential tremor; Translations: [Essential tremor] Onset: 11-29-2022 12-10-2023 Chronic Other nervous system disorders (20 sources) Sleep pattern disturbance; Translations: [Circadian rhythm sleep disorder, unspecified type] Onset: 11-29-2022 12-10-2023 Chronic Other non-traumatic joint disorders (13 sources) Hip pain; Translations: [Pain in right hip] 01-23-2024 Episodic Other non-traumatic joint disorders (4 sources) Pain in right hip; Translations: [Pain in right hip] Onset: 05-09-2024 Episodic Other nutritional; endocrine; and metabolic disorders (20 sources) Obese class I; Translations: [Class 1 obesity] Onset: 12-07-2022 12-10-2023 Chronic Other nutritional; endocrine; and metabolic disorders (2 sources) Body mass index 30+ - obesity; Translations: [Body mass index (BMI) 30.0-30.9, adult] 12-10-2023 Chronic Residual codes; unclassified (2 sources) Postmenopausal state; Translations: [Asymptomatic menopausal state] 06-11-2024 Episodic Spondylosis; intervertebral disc disorders; other back problems (4 sources) Lumbar arthritis; Translations: [Spondylosis without myelopathy or radiculopathy, lumbar region] Onset: 06-11-2024 06-11-2024 Chronic Spondylosis; intervertebral disc disorders; other back problems (7 sources) Backache; Translations: [Dorsalgia, unspecified] Onset: 2024 05-13-2024 Episodic Unclassified (1 source) Encounter for screening mammogram for malignant neoplasm of breast; Translations: [Encounter for screening mammogram for malignant neoplasm of breast] Onset: 06-27-2023 Past or Other Problems Problem Classification Problem Date Documented Da te Episodic/Chronic Abdominal pain (4 sources) Unspecified abdominal pain; Translations: [UNSPECIFIED ABDOMINAL PAIN] Onset: 02-08-2022 Episodic Allergic reactions (20 sources) Eczema; Translations: [Dermatitis, unspecified] Onset: 11-29-2022 11-29-2022 Episodic Other and unspecified benign neoplasm (20 sources) Adenomatous polyp of colon ; Translations: [Benign neoplasm of colon, unspecified] Onset: 11-29-2022 12-07-2022 Episodic Other connective tissue disease (2 sources) Trochanteric bursitis; Translations: [Trochanteric bursitis, right hip] 12-08-2023 Episodic Other nervous system disorders (20 sources) Tremor; Translations: [Tremor, unspecified] Onset: 11-29-2022 Resolved: 02-05-2023 02-05-2023 Episodic Other non-traumatic joint disorders (2 sources) Pain in right hip joint; Translations: [Pain in right hip] 12-08-2023 Episodic Other skin disorders (2 sources) Eruption; Translations: [Rash and other nonspecific skin eruption] 12-08-2023 Episodic Unclassified (2 sources) Lumbar radicular pain 05-24-2024 Results Test Name Value Interpretation Reference Range Facil ity XR LUMBAR SPINE 2-3 VIEWS (S TANDARD)on 2024 XR LUMBAR SPINE 2-3 VIEWS (STANDARD) EXAMINATION: XR LUMBAR SPINE 2-3 VIEWS (STANDARD) HISTORY: LUMBAR PAIN COMPARISON: None. IMPRESSION: FINDINGS/ 1. No acute fracture or dislocation. 2. Rightward scoliotic curvature of the lumbar spine centered L3. 3. Diffuse idiopathic skeletal hyperostosis of the lower thoracic spine. 4. Large stool burden of the colon. 5. Mild degeneration of the sacroiliac joints. 6. Lumbar spine vertebral body height is preserved. 7. Moderate facet arthropathy of the lower lumbar spine. Moderate disc degeneration at L5-S1. Workstation ID: [id number] Dictated by: LUIS ENRIQUE FLEMING on MonMay 28, 2024 11:03:09 AM EST Transcribed by: LUIS ENRIQUE FLEMING on MonMay 28, 2024 11:03:09 AM EST Finalized by: LUIS ENRIQUE FLEMING on MonMay 28, 2024 11:03:[address] [facility] Comment on above: Order Comment: STAND ING AND AP LATERAL Injury/Trauma or Illness?:Illness/Other How long have you had these symptoms (acute/chronic)?:Unknown Reason for exam?:Lumbar pain with radiating sensations in the right hip History of cancer?:uk Surgeries, chemotherapy, or radiation?:no Type of Exam?:Unknown Additional signs and symptoms?:none MR HIP RIGHT WITHOUT CONTRAS Ton 05-10-2024 MR HIP RIGHT WITHOUT CONTRAST EXAMINATION: MR HIP RIGHT WITHOUT CONTRAST HISTORY: ORDERING SYSTEM PROVIDED HISTORY: Hip pain, chronic, articular cartilage eval, xray done, TECHNOLOGIST PROVIDED HISTORY: Injury/Trauma Reason for exam: rt hip pain, limited ROM, painful ROM rt groin pain Encounter Type: Initial Mechanism of injury: slipped and did splits in the shower ORDERING SYSTEM PROVIDED DIAGNOSIS CODES: M25.551 Right hip pain COMPARISON: None. TECHNIQUE: MRI of the right hip without contrast. Sequences obtained by standard department protocol. CONTRAST: No intravenous contrast was utilized. FINDINGS: Sacroiliac joints are normal. No acute abnormality of the visualized organs of the pelvis. Intramural fibroid of the uterine fundus measuring 1.8 cm. No inguinal or pelvic adenopathy. Bilateral abductor tendons are intact. There is a lesion at the right posterior aspect of the vagina associated with the labia majora, measuring 1.9 x 1.6 cm, consistent with Bartholin gland proteinaceous cyst. Moderate degeneration of the right hip joint. There is subchondral cyst formation of the right acetabulum. There is degenerative bone marrow edema of the right acetabulum and femoral head. There is high-grade chondral loss of the anterior aspect of the acetabulum. Moderate right hip joint effusion. No acute fractures. Bilateral rectus femoris origins are intact. Bilateral iliopsoas tendons are intact. Bilateral hamstring origins are intact. Bilateral abductor tendons are intact. Bilateral sacroiliac joints are normal. IMPRESSION: 1. Moderate degeneration of the right hip joint. There is subchondral cyst formation of the right acetabulum. There is degenerative bone marrow edema of the right acetabulum and femoral head. There is high-grade chondral loss of the anterior aspect of the acetabulum. 2. No acute fractures. 3. Other chronic findings as described. [employer] Workstation ID: [id number] Dictated by: LUIS ENRIQUE FLEMING on MonMay 10, 2024 12:23:30 PM EST Transcribed by: DEVI HOFFMAN on MonMay 10, 2024 12:40:28 PM EST Finalized by: LUIS ENRIQUE FLEMING on MonMay 10, 2024 2:33:[address] [facility] Comment on above: Order Comment: Injur y/Trauma or Illness?:Injury/Trauma How long have you had these symptoms (acute/chronic)?:Acute 6 months Reason for exam?:rt hip pain, limited ROM, painful ROM rt groin pain Type of Exam?:Initial Mechanism of injury?:slipped and did splits in the shower XR HIP RIGHT WITH PELVIS 2-3 VIEWS (ROUTINE)on 05-09-2024 XR HIP RIGHT WITH PELVIS 2-3 VIEWS (ROUTINE) EXAMINATION: XR HIP RIGHT WITH PELVIS 2-3 VIEWS (ROUTINE) HISTORY: RIGHT HIP PAIN COMPARISON: Study from 2023 FINDINGS: Routine views of the right hip were obtained and show no evidence of fracture or subluxation. Mild to moderate degenerative changes of the right hip joint similar to prior with subchondral sclerosis and small marginal osteophytes. Osseous structures are mildly osteopenic. Soft tissues are unremarkable. IMPRESSION: Mild to moderate osteoarthritis. Workstation ID: [id number] Dictated by: DOREEN OSORIO on [employer] May 12, 2024 12:02:36 PM EST Transcribed by: DOREEN OSORIO on [employer] May 12, 2024 12:02:36 PM EST Finalized by: DOREEN OSORIO on [employer] May 12, 2024 12:02:[address] [facility] Comment on above: Order Comment: Injur y/Trauma or Illness?:Injury/Trauma How long have you had these symptoms (acute/chronic)?:Chronic Reason for exam?:chronic pain in rt hip History of cancer?:uk Surgeries, chemotherapy, or radiation?:no Type of Exam?:Initial Mechanism of injury?:slipped in shower in october XR Lumbar spine 2 or 3 Views on 01-24-2024 Imaging Result: 3 views lumbar spine, AP/lateral/L5-S1, taken today and saved to the permanent medical record. Significant multilevel degenerative changes. [facility] [employer] [facility] [facility] XR Pelvis 1 or 2 [facility] Result: AP pelvis taken today, AP/lateral right hip(s) taken 12/08/2023 and saved to the permanent medical record. Advanced arthritis in the right hip. Moderate arthritis in the left hip. [facility] Lumbar spine 2 or 3 Views on 01-23-2024 Radiology Study observation (narrative) [employer] XR Pelvis 1 or 2 [facility] Radiology Study observation (narrative) [facility] [employer] MM screening mammo BI w/CADo n 06-27-2023 MM screening mammo BI w/CAD [facility] [place] [address] [place] [address] Mammography Report Signed Patient: Xiomara Blanco MR#: [id number] : 1950 Acct:[id number] Age/Sex: 73 / F ADM Date: 06/27/23 Loc: [place] Room: Type: [facility] Attending Dr: Blaise Heredia DO Copies to: Lisette D Murcia-SalemDO Blaise redding DO Ordering Provider: Blaise Heredia DO Date of Service: 06/27/23 MM/MM screening [...] mammogram. Impression dictated by: Clay Carballo Jr., Reema06/27/2023 11:40 AM Dictation Location: [facility] Transcribed By: [facility] 06/27/23 1140 Dictated By: Clay Carballo Jr, DO 06/27/23 1138 Signed By: 06/27/23 1140 Normal [facility] PTH INTACTon 05-27-2022 PTH, Intact 12 pg/mL Critically low 15-65 [facility] Comment on above: Performed By: #### P THINT #### [facility] [address] [address] [address] Sharmila Mitchell FREE T4on 05-26-2022 Free T4 [Mass/Vol] 1.27 ng/dL Normal 0.76-1.46 [facility] Comment on above: Performed By: #### F T4, VITAD #### [facility] [address] [place], [place] [address] Dr. Sharmila Mitchell LIPID PROFILEon 05-26-2022 CHOL-HDL RATIO NORM SEE BELOW Normal [facility] Comment on above: Result Comment: 3.3 - 4.4 LOW RISK 4.4 - 7.1 AVERAGE RISK 7.1 - 11.0 MODERATE RISK >11.0 HIGH RISK Performed By: #### L IPID, TSH, CMP #### [facility] [address] [address] [address] Sharmila Mitchell Cholesterol [Mass/Vol] 141 mg/dL Normal <=200 [facility] Comment on above: Performed By: #### L IPID, TSH, CMP #### [facility] [address] [address] [address] Sharmila Mitchell Cholesterol in HDL [Mass/Vol] 56 mg/dL Normal 40-60 [facility] Comment on above: Performed By: #### L IPID, TSH, CMP #### [facility] [address] [address] [address] Sharmila Mitchell Cholesterol in LDL [Mass/Vol] 68.4 mg/dL Normal [facility] Comment on above: Performed By: #### L IPID, TSH, CMP #### [facility] [address] [place] [address] Dr. Sharmila Mitchell Cholesterol.total/ Cholesterol in HDL [Mass ratio] 2.5 {ratio} Normal [facility] Comment on above: Performed By: #### L IPID, TSH, CMP #### [facility] [address] [place] [address] Dr. Sharmila Mitchell HDL NORMAL > or = 60 mg/dl - LOW CARDIOVASCULAR RISK <40 mg/dl - HIGH CARDIOVASCULAR RISK Normal [facility] Comment on above: Performed By: #### L IPID, TSH, CMP #### [facility] [address] [place] [address] Dr. Sharmila Mitchell LDL CALC NORMAL SEE BELOW Normal [facility] Comment on above: Result Comment: <100 mg/dl OPTIMAL 100 - 129 mg/dl NEAR OR ABOVE OPTIMAL 130 - 159 mg/dl BORDERLINE HIGH 160 - 189 mg/dl HIGH >190 mg/dl VERY HIGH Performed By: #### L IPID, TSH, CMP #### [facility] [address] [address] [address] Sharmila Mitchell Triglyceride [Mass/Vol] 83 mg/dL Normal <=150 [facility] Comment on above: Performed By: #### L IPID, TSH, CMP #### [facility] [address] [place] [address] Dr. Sharmila Mitchell VLDL CALC 16.6 mg/dL Normal [facility] Comment on above: Performed By: #### L IPID, TSH, CMP #### [facility] [address] [place] [address] Dr. Sharmila Mitchell PROF 14(COMP METB)on 023 Albumin [Mass/Vol] 4.1 g/dL Normal 3.4-5.0 [facility] Comment on above: Performed By: #### L IPID, TSH, CMP #### [facility] [address] [place] [address] Dr. Sharmila Mitchell Albumin/Globulin [Mass ratio] 1.3 {ratio} Normal [facility] Comment on above: Performed By: #### L IPID, TSH, CMP #### [facility] [address] [place] [address] Dr. Sharmila Mitchell ALP [Catalytic activity/Vol] 84 U/L Normal 46-116 [facility] Comment on above: Performed By: #### L IPID, TSH, CMP #### [facility] [address] [place] [address] Dr. Sharmila Mitchell ALT [Catalytic activity/Vol] 26 U/L Normal 14-59 [facility] Comment on above: Performed By: #### L IPID, TSH, CMP #### [facility] [address] [place] [address] Dr. Sharmila Mitchell Anion gap [Moles/Vol] 14.3 mmol/L Normal [facility] Comment on above: Performed By: #### L IPID, TSH, CMP #### [facility] [address] [place] [address] Dr. Sharmila Mitchell AST [Catalytic activity/Vol] 18 U/L Normal 15-37 [facility] Comment on above: Performed By: #### L IPID, TSH, CMP #### [facility] [address] [place] [address] Dr. Sharmila Mitchell Bilirubin [Mass/Vol] 1.0 mg/dL Normal 0.2-1.0 [facility] Comment on above: Performed By: #### L IPID, TSH, CMP #### [facility] [address] [place] [address] Dr. Sharmila Mitchell Calcium [Mass/Vol] 9.2 mg/dL Normal 8.5-10.1 [facility] Comment on above: Performed By: #### L IPID, TSH, CMP #### [facility] [address] [place] [address] Dr. Sharmila Mitchell Chloride [Moles/Vol] 105 mmol/L Normal 98-107 [facility] Comment on above: Performed By: #### L IPID, TSH, CMP #### [facility] [address] [place] [address] Dr. Sharmila Mitchell CO2 [Moles/Vol] 25.4 mmol/L Normal 21.0-32.0 [facility] Comment on above: Performed By: #### L IPID, TSH, CMP #### [facility] [address] [place] [address] Dr. Sharmila Mitchell Creatinine [Mass/Vol] 0.69 mg/dL Normal 0.55-1.02 [facility] Comment on above: Performed By: #### L IPID, TSH, CMP #### [facility] [address] [place] [address] Dr. Sharmila Mitchell EGFR-AF SAO TOMEAN >60 Normal >=60 [facility] Comment on above: Performed By: #### L IPID, TSH, CMP #### [facility] [address] [place] [address] Dr. Sharmila Mitchell EGFR-NON AF SAO TOMEAN >60 Normal >=60 [facility] Comment on above: Performed By: #### L IPID, TSH, CMP #### [facility] [address] [place] [address] Dr. Sharmila Mitchell Globulin (S) [Mass/Vol] 3.1 g/dL Normal [facility] Comment on above: Performed By: #### L IPID, TSH, CMP #### [facility] [address] [address] [address] Sharmila Mitchell Glucose [Mass/Vol] 103 mg/dL Normal 74-106 [facility] Comment on above: Performed By: #### L IPID, TSH, CMP #### [facility] [address] [address] [address] Sharmila Mitchell Potassium [Moles/Vol] 3.7 mmol/L Normal 3.5-5.1 [facility] Comment on above: Performed By: #### L IPID, TSH, CMP #### [facility] [address] [place] [address] Dr. Sharmila Mitchell Protein [Mass/Vol] 7.2 g/dL Normal 6.4-8.2 [facility] Comment on above: Performed By: #### L IPID, TSH, CMP #### [facility] [address] [place] [address] Dr. Sharmila Mitchell Sodium [Moles/Vol] 141 mmol/L Normal 136-145 [facility] Comment on above: Performed By: #### L IPID, TSH, CMP #### [facility] [address] [address] [address] Sharmila Mitchell Urea nitrogen [Mass/Vol] 10.0 mg/dL Normal 7.0-18.0 [facility] Comment on above: Performed By: #### L IPID, TSH, CMP #### [facility] [address] [address] [address] Sharmila Mitchell Urea nitrogen/Creatinin e [Mass ratio] 14.5 mg/mg Normal [facility] Comment on above: Performed By: #### L IPID, TSH, CMP #### [facility] [address] [address] [address] Sharmila Mitchell TSHon 05-26-2022 TSH 1.836 uIU/mL Normal 0.358-3.[address] [facility] Comment on above: Performed By: #### L IPID, TSH, CMP #### [facility] [address] [place] [address] Dr. Sharmila Mitchell VITAMIN D 25 OHon 05-26-2022 VIT D 25-OH 67.7 ng/mL Normal [facility] Comment on above: Performed By: #### F T4, VITAD #### [facility] [address] [place] [address] Dr. Sharmila Mitchell VIT D RANGES SEE BELOW Normal [facility] Comment on above: Result Comment: <20 ng/mL Vit D deficient 20 - <30 ng/mL Vit D insufficient 30 - 100 ng/mL Vit D sufficient >100 ng/mL Potential Toxicity Performed By: #### F T4, VITAD #### [facility] [address] [place] [address] Dr. Sharmila Mitchell CBC AUTO DIFFon 02-08-2022 BASO # 0.0 103/ul Normal 0.0-0.1 [facility] Comment on above: Performed By: #### CHAITANYA SALINASRO #### [facility] [address] [place] [address] Dr. Sharmila Mitchell Basophils/100 WBC (Bld) 0.3 % Normal 0.2-2.0 [facility] Comment on above: Performed By: #### CHAITANYA SALINASRO #### [facility] [address] [place] [address] Dr. Sharmila Mitchell EO # 0.2 103/ul Normal 0.0-0.7 [facility] Comment on above: Performed By: #### Arik RAYGOZA UMICRO #### [facility] [address] [place] [address] Dr. Sharmila Mitchell Eosinophils/100 WBC (Bld) 2.6 % Normal 0.9-7.0 [facility] Comment on above: Performed By: #### CHAITANYA SALINASRO #### [facility] [address] [place] [address] Dr. Sharmila Mitchell Erythrocyte distribution width (RBC) [Ratio] 12.2 % Normal 11.0-15.0 [facility] Comment on above: Performed By: #### SETH SALINASICRO #### [facility] [address] [place] [address] Dr. Sharmila Mitchell Hematocrit (Bld) [Volume fraction] 47.2 % Normal 36.0-48.0 [facility] Comment on above: Performed By: #### CHAITANYA SALINASRO #### [facility] [address] [place] [address] Dr. Sharmila Mitchell Hemoglobin (Bld) [Mass/Vol] 16.3 g/dL Critically high 12.0-16.0 [facility] Comment on above: Performed By: #### SETH SALINASICRO #### [facility] [address] [place] [address] Dr. Sharmila Mitchell IG # 0.02 10e3/ul Normal 0.00-0.03 [facility] Comment on above: Performed By: #### Arik RAYGOZA UMICRO #### [facility] [address] [place] [address] Dr. Sharmila Mitchell IG % 0.3 % Normal 0.0-0.5 [facility] Comment on above: Performed By: #### SETH SALINASICRO #### [facility] [address] [place] [address] Dr. Sharmila Mitchell LYMPH # 1.9 103/ul Normal 1.2-3.8 [facility] Comment on above: Performed By: #### SETH SALINASICRO #### [facility] [address] [place] [address] Dr. Sharmila Mitchell Lymphocytes/100 WBC (Bld) 28.4 % Normal 20.5-60.0 [facility] Comment on above: Performed By: #### Arik RAYGOZA UMICRO #### [facility] [address] [place] [address] Dr. Sharmila Mitchell MANUAL DIFF REQ NO Normal [facility] Comment on above: Performed By: #### Arik RAYGOZA UMICRO #### [facility] [address] [place] [address] Dr. Sharmila Mitchell MCH (RBC) [Entitic mass] 30.0 pg Normal 26.7-34.0 [facility] Comment on above: Performed By: #### E RUR, UMICRO #### [facility] [address] [place] [address] Dr. Sharmila Mitchell MCHC (RBC) [Mass/Vol] 34.5 g/dL Normal 29.9-35.2 [facility] Comment on above: Performed By: #### E RUR, UMICRO #### [facility] [address] [place] [address] Dr. Sharmila Mitchell MCV (RBC) [Entitic vol] 86.9 fL Normal 81.0-99.0 [facility] Comment on above: Performed By: #### E RUR, UMICRO #### [facility] [address] [place] [address] Dr. Sharmila Mitchell MONO # 0.5 103/ul Normal 0.3-0.8 [facility] Comment on above: Performed By: #### E RUR, UMICRO #### [facility] [address] [place] [address] Dr. Sharmila Mitchell Monocytes/100 WBC (Bld) 8.2 % Normal 1.7-12.0 [facility] Comment on above: Performed By: #### E RUR, UMICRO #### [facility] [address] [place] [address] Dr. Sharmila Mitchell NEUT # 4.0 103/ul Normal 1.4-6.5 [facility] Comment on above: Performed By: #### E RUR, UMICRO #### [facility] [address] [place] [address] Dr. Sharmila Mitchell Neutrophils/100 WBC (Bld) 60.2 % Normal 43.0-75.0 [facility] Comment on above: Performed By: #### E RUR, UMICRO #### [facility] [address] [place] [address] Dr. Sharmila Mitchell Platelet mean volume (Bld) [Entitic vol] 10.3 fL Normal 9.5-13.5 [facility] Comment on above: Performed By: #### E RUR, UMICRO #### [facility] [address] [place] [address] Dr. Sharmila Mitchell PLT 241 103/ul Normal 150-450 [facility] Comment on above: Performed By: #### ZARINA SALINAS #### [facility] [address] [place], [place] [address] Dr. Sharmila Mitchell RBC 5.43 106/ul Critically high 4.20-5.40 [facility] Comment on above: Performed By: #### ZARINA SALINSA #### [facility] [address] [id number] [address] Sharmila Mitchell WBC 6.6 103/ul Normal 4.0-11.0 [facility] Comment on above: Performed By: #### ZARINA SALINAS #### [facility] [id number] Sharmila Mitchell CT ABD/PELVIS WO CONon [...] JACQUELINE CRUZ Date: 2022-02-08 08:59 Normal [facility] ER URINE PROFILEon 2 Bilirubin Ql (U) Negative Normal NEGATIVE [facility] Comment on above: Performed By: #### Arik RAYGOZA UMWILLRO #### [facility] [address] [place] [address] Dr. Sharmila Mitchell Clarity (U) CLEAR Normal CLEAR [facility] Comment on above: Performed By: #### Arik RAYGOZA UMICRO #### [facility] [address] [place] [address] Dr. Sharmila Mitchell Color (U) LT. YELLOW Normal YELLOW [facility] Comment on above: Performed By: #### Arik RAYGOZA UMICRO #### [facility] [address] [place] [address] Dr. Sharmila CROW A micrscopic examination will be performed if indicated. Normal [facility] Comment on above: Performed By: #### Arik RAYGOZA UMICRO #### [facility] [address] [place] [address] Dr. Sharmila Mitchell Glucose Ql (U) Negative Normal NEGATIVE [facility] Comment on above: Performed By: #### Arik RAYGOZA UMICRO #### [facility] [address] [place] [address] Dr. Sharmila Mitchell Hemoglobin Ql (U) TRACE-LYSED Abnormal NEGATIVE [facility] Comment on above: Performed By: #### Arik RAYGOZA UMICRO #### [facility] [address] [place] [address] Dr. Sharmila Mitchell Ketones Ql (U) Negative Normal NEGATIVE [facility] Comment on above: Performed By: #### ZARINA SALINAS #### [facility] [address] [place] [address] Dr. Sharmila Mitchell LEUKOCYTES Negative Normal NEGATIVE [facility] Comment on above: Performed By: #### CHAITANYA SALINASRO #### [facility] [address] [place] [address] Dr. Sharmila Mitchell Nitrite Ql (U) Negative Normal NEGATIVE [facility] Comment on above: Performed By: #### CHAITANYA SALINASRO #### [facility] [address] [place] [address] Dr. Sharmila Mitchell pH (U) 6.0 [pH] Normal 5-9 [facility] Comment on above: Performed By: #### CHAITANYA SALINASRO #### [facility] [address] [place] [address] Dr. Sharmila Mitchell SPEC GRAVITY 1.015 Normal 1.005-<=1.025 [facility] Comment on above: Performed By: #### CHAITANYA SALINASRO #### [facility] [address] [place] [address] Dr. Sharmila Mitchell UA PROTEIN Negative Normal NEGATIVE/ TRACE [facility] Comment on above: Performed By: #### CHAITANYA SALINASRO #### [facility] [address] [place] [address] Dr. Sharmila Mitchell UR MICRO IND INDICATED Normal [facility] Comment on above: Performed By: #### ZARINA SALINAS #### [facility] [address] [place] [address] Dr. Sharmila Mitchell Urobilinogen Qn (U) 0.2 {Mateo'U}/dL Normal 0.2 - 1.0 [facility] Comment on above: Performed By: #### CHAITANYA SALINASRO #### [facility] [address] [place] [address] Dr. Sharmila Mitchell PROF CHEM 8 (BAS METB)on Anion gap [Moles/Vol] 16.3 mmol/L Normal [facility] Comment on above: Performed By: #### B MP #### [facility] [address] [address] [address] Sharmila Mitchell Calcium [Mass/Vol] 8.6 mg/dL Normal 8.5-10.1 [facility] Comment on above: Performed By: #### B MP #### [facility] [address] [address] [address] Sharmila Mitchell Chloride [Moles/Vol] 106 mmol/L Normal 98-107 [facility] Comment on above: Performed By: #### B MP #### [facility] [address] [address] [address] Sharmila Mitchell CO2 [Moles/Vol] 24.6 mmol/L Normal 21.0-32.0 [facility] Comment on above: Performed By: #### B MP #### [facility] [address] [place] [address] Dr. Sharmila Mitchell Creatinine [Mass/Vol] 0.80 mg/dL Normal 0.55-1.02 [facility] Comment on above: Performed By: #### B MP #### [facility] [address] [address] [address] Sharmila Mitchell EGFR-AF SAO TOMEAN >60 Normal >=60 [facility] Comment on above: Performed By: #### B MP #### [facility] [address] [place] [address] Dr. Sharmila Mtichell EGFR-NON AF SAO TOMEAN >60 Normal >=60 [facility] Comment on above: Performed By: #### B MP #### [facility] [address] [address] [address] Sharmila Mitchell Glucose [Mass/Vol] 107 mg/dL Critically high 74-106 [facility] Comment on above: Performed By: #### B MP #### [facility] [address] [address] [address] Sharmila Mitchell Potassium [Moles/Vol] 3.9 mmol/L Normal 3.5-5.1 [facility] Comment on above: Performed By: #### B MP #### [facility] [address] [address] [address] Sharmila Mitchell Sodium [Moles/Vol] 143 mmol/L Normal 136-145 [facility] Comment on above: Performed By: #### B MP #### [facility] [address] [place] [address] Dr. Sharmila Mitchell Urea nitrogen [Mass/Vol] 12.0 mg/dL Normal 7.0-18.0 [facility] Comment on above: Performed By: #### B MP #### [facility] [address] [place] [address] Dr. Sharmila Mitchell Urea nitrogen/Creatinin e [Mass ratio] 15.0 mg/mg Normal [facility] Comment on above: Performed By: #### B MP #### [facility] [address] [place] [address] Dr. Sharmila Mitchell URINE MICROSCOPIC ONLYon BACTERIA NONE SEEN Normal NONE SEEN [facility] Comment on above: Performed By: #### Arik RAYGOZA UMICRO #### [facility] [address] [place] [address] Dr. Sharmila Mitchell Bacteria identified Cx Nom (U) NOT INDICATED Normal [facility] Comment on above: Performed By: #### Arik RAYGOZA UMICRO #### [facility] [address] [place] [address] Dr. Sharmila Mitchell CAST NONE SEEN Normal NONE SEEN [facility] Comment on above: Performed By: #### Arik RAYGOZA UMICRO #### [facility] [address] [place] [address] Dr. Sharmila Mitchell Crystals LM Nom (Urine sed) NONE SEEN Normal NONE SEEN [facility] Comment on above: Performed By: #### rAik RAYGOZA UMICRO #### [facility] [address] [place] [address] Dr. Sharmila Mitchell Epithelial cells LM Ql (Urine sed) NONE SEEN Normal NONE SEEN /RARE [facility] Comment on above: Performed By: #### Arik RAYGOZA UMICRO #### [facility] [address] [place] [address] Dr. Sharmila Mitchell MUCOUS NONE SEEN Normal NONE SEEN [facility] Comment on above: Performed By: #### E RUR, UMICRO #### [facility] [address] [address] [address] Sharmila Mitchell RBC 0-2 Normal 0-2 [facility] Comment on above: Performed By: #### E RUR, UMICRO #### [facility] [address] [address] [address] Sharmila Mitchell WBC NONE SEEN Normal NONE SEEN [facility] Comment on above: Performed By: #### E RUR, UMICRO #### [facility] [address] [address] [address] Sharmila Mitchell Vital Signs Date Time Vital Sign Value Performing Clinician [facility] 06-11-2024 09:09-0500 Body mass index (BMI) [Ratio] 30.79 kg/m2 Lisette Murcia-Salem DO Work Phone: [facility] 06-11-2024 09:09-0500 Body weight 83.92 kg Lisette Murcia-Salem DO Work Phone: [facility] 06-11-2024 09:09-0500 Diastolic blood pressure 50 mm[Hg] Lisette Murcia-Salem DO Work Phone: [facility] 06-11-2024 09:09-0500 Heart rate 78 /min Lisette Murcia-Salem DO Work Phone: [facility] 06-11-2024 09:09-0500 SaO2% (BldA) [Mass fraction] 97 % Lisette Murcia-Salem DO Work Phone: [facility] 06-11-2024 09:09-0500 Systolic blood pressure 102 mm[Hg] Lisette Murcia-Salem DO Work Phone: [facility] 2024 13:15-0500 Diastolic blood pressure 84 mm[Hg] Clarice MCFARLANE-Adonis Work Phone: [facility] 2024 13:15-0500 Heart rate 83 /min Clarice Robbins PA-C Work Phone: [facility] 2024 13:15-0500 Systolic blood pressure 118 mm[Hg] Clarice MCFARLANE-Adonis Work Phone: [facility] 05-13-2024 11:04-0500 Body height 165.1 cm Jerzy Hodges DO Work Phone: [facility] 05-13-2024 11:04-0500 Body mass index (BMI) [Ratio] 30.79 kg/m2 Jerzy Canini DO Work Phone: [facility] 05-13-2024 11:04-0500 Body weight 83.92 kg Jerzy Canini DO Work Phone: [facility] 05-09-2024 10:12-0500 Body height 165.1 cm Jerzy Canini DO Work Phone: [facility] 05-09-2024 10:12-0500 Body mass index (BMI) [Ratio] 30.79 kg/m2 Jerzy Canini DO Work Phone: [facility] 05-09-2024 10:12-0500 Body weight 83.92 kg Jerzy Canini DO Work Phone: [facility] 03-05-2024 10:49-0500 Body height 165.1 cm Pérez Luke DO Work Phone: [facility] 03-05-2024 10:49-0500 Body mass index (BMI) [Ratio] 30.79 kg/m2 Pérez Brown DO Work Phone: [facility] 03-05-2024 10:49-0500 Body temperature 97.39 [degF] Pérez Brown DO Work Phone: [facility] 03-05-2024 10:49-0500 Body weight 83.92 kg Pérez Brown DO Work Phone: [facility] 01-23-2024 13:26-0400 Body height 165.1 cm Pérez Brown DO Work Phone: [facility] 01-23-2024 13:26-0400 Body mass index (BMI) [Ratio] 30.79 kg/m2 Pérez Luke DO Work Phone: [facility] 01-23-2024 13:26-0400 Body weight 83.92 kg Pérez Luke DO Work Phone: [facility] 12-08-2023 09:09-0400 Body mass index (BMI) [Ratio] 30.89 kg/m2 Lisette Murcia-Salem DO Work Phone: [facility] 12-08-2023 09:09-0400 Body weight 84.19 kg Lisette Murcia-Salem DO Work Phone: [facility] 12-08-2023 09:09-0400 Diastolic blood pressure 76 mm[Hg] Lisette Murcia-Salem DO Work Phone: [facility] 12-08-2023 09:09-0400 Heart rate 88 /min Lisette Murcia-Salem DO Work Phone: [facility] 12-08-2023 09:09-0400 SaO2% (BldA) [Mass fraction] 98 % Lisette Murcia-Salem DO Work Phone: [facility] 12-08-2023 09:09-0400 Systolic blood pressure 118 mm[Hg] Lisette Murcia-Salem DO Work Phone: [facility] Healthcare Encounters Encounter Date Encounter Type Care Provider Facility Start: 06-11-2024 End: 06-11-2024 Office outpatient visit 25 minutes Lisette Steve Murcia-Salem DO Work Phone: [facility] Comment on above: Mixed hyperlipidemia (CMS/HCC) (Primary Dx); Postoperative hypothyroidism (CMS/HCC); Arthritis of right hip; Vitamin D deficiency; Encounter for screening mammogram for malignant neoplasm of breast; Arthritis, lumbar spine; Osteoporosis screening; Postmenopausal Start: 06-11-2024 End: 06-11-2024 ambulatory LISETTE Wilson [facility] Not Available Start: 2024 End: 2024 Office outpatient new 45 minutes Clarice Robbins PA-C Work Phone: [facility] Comment on above: Lumbar radicular winsome n (Primary Dx); Osteoarthritis of right hip, unspecified osteoarthritis type; S/P cervical spinal fusion Start: 2024 End: 2024 ambulatory [facility] Start: 05-13-2024 End: 05-13-2024 Office outpatient visit 15 minutes Jerzy Hodges DO Work Phone: [facility] Comment on above: Osteoarthritis of ri ght hip, unspecified osteoarthritis type (Primary Dx) Start: 05-13-2024 End: 05-13-2024 Orders Only Austin Ibrahim MD Work Phone: [facility] Comment on above: Back pain, unspecifi ed back location, unspecified back pain laterality, unspecified chronicity (Primary Dx) Start: 05-10-2024 End: 05-10-2024 ambulatory JERZY HANSEL [facility] Start: 05-09-2024 End: 05-09-2024 Office outpatient new 30 minutes Jerzy Hodges DO Work Phone: [facility] Comment on above: Right hip pain (Prim sary Dx); Osteoarthritis of right hip, unspecified osteoarthritis type Start: 05-09-2024 End: 05-09-2024 ambulatory [facility] Start: 05-06-2024 End: 05-06-2024 Orders Only Jerzydanny Hodges DO Work Phone: [facility] Comment on above: Right hip pain (Prim sary Dx) Start: 03-05-2024 End: 03-05-2024 Patient encounter procedure Pérez Luke DO Work Phone: [facility] Comment on above: Primary osteoarthrit is of right hip (Primary Dx) Start: 03-05-2024 End: 03-05-2024 ambulatory PÉREZ LUKE Not Available Start: 02-29-2024 End: 02-29-2024 Bamboo flowsheet Sergey Bolden PT Work Phone: [facility] Start: 02-29-2024 End: 02-29-2024 Bamboo flowsheet Sergey Bolden PT Work Phone: [facility] Start: 02-29-2024 End: 02-29-2024 ambulatory Sergey Bolden PT Work Phone: [facility] Comment on above: Right hip pain (Prim sary Dx); Primary osteoarthritis of right hip Start: 02-27-2024 End: 02-27-2024 Bamboo flowsheet Sergey Bolden PT Work Phone: [facility] Start: 02-27-2024 End: 02-27-2024 Bamboo flowsheet Sergey Bolden PT Work Phone: [facility] Start: 02-27-2024 End: 02-27-2024 ambulatory Sergey Bolden PT Work Phone: [facility] Comment on above: Right hip pain (Prim sary Dx); Primary osteoarthritis of right hip Start: 02-22-2024 End: 02-22-2024 Bamboo flowsheet Sergey Bolden PT Work Phone: [facility] Start: 02-22-2024 End: 02-22-2024 Bamboo flowsheet Sergey Bolden PT Work Phone: [facility] Start: 02-22-2024 End: 02-22-2024 ambulatory Sergey Bolden PT Work Phone: [facility] Comment on above: Right hip pain (Prim sary Dx); Primary osteoarthritis of right hip Start: 02-20-2024 End: 02-20-2024 Bamboo flowsheet Sergey Kennedyton PT Work Phone: [facility] Start: 02-20-2024 End: 02-20-2024 Bamboo flowsheet Sergey Bolden PT Work Phone: [facility] Start: 02-20-2024 End: 02-20-2024 ambulatory Sergey Sarahi Kennedyton PT Work Phone: [facility] Comment on above: Right hip pain (Prim sary Dx); Primary osteoarthritis of right hip Start: 02-08-2024 End: 02-08-2024 Bamboo flowsheet Sergey Sarahi Kennedyton PT Work Phone: [facility] Start: 02-08-2024 End: 02-08-2024 Bamboo flowsheet Sergey Sarahi Blackston PT Work Phone: [facility] Start: 02-08-2024 End: 02-08-2024 ambulatory Sergey Sarahi Kennedyton PT Work Phone: [facility] Comment on above: Right hip pain (Prim sary Dx); Primary osteoarthritis of right hip Start: 02-06-2024 End: 02-06-2024 Bamboo flowsheet Sergey T Blackston PT Work Phone: [facility] Start: 02-06-2024 End: 02-06-2024 Bamboo flowsheet Sergey Sarahi Kennedyton PT Work Phone: [facility] Start: 02-06-2024 End: 02-06-2024 ambulatory Sergey Kennedyton PT Work Phone: [facility] Comment on above: Right hip pain (Prim sary Dx); Primary osteoarthritis of right hip Start: 02-01-2024 End: 02-01-2024 Bamboo flowsheet Sergey Sarahi Blackston PT Work Phone: [facility] Start: 02-01-2024 End: 02-01-2024 Bamboo flowsheet Sergey T Blackston PT Work Phone: [facility] Start: 02-01-2024 End: 02-01-2024 ambulatory Sergey Sarahi Kennedyton PT Work Phone: [facility] Comment on above: Right hip pain (Prim sary Dx); Primary osteoarthritis of right hip Start: 01-30-2024 End: 01-30-2024 Bamboo flowsheet Sergey Bolden PT Work Phone: [facility] Start: 01-30-2024 End: 01-30-2024 Bamboo flowsheet Sergey Bolden PT Work Phone: [facility] Start: 01-30-2024 End: 01-30-2024 ambulatory Sergey Bolden PT Work Phone: [facility] Comment on above: Right hip pain (Prim sary Dx); Primary osteoarthritis of right hip Start: 01-23-2024 End: 01-23-2024 Patient encounter procedure Pérez Luke DO Work Phone: [facility] Comment on above: Right hip pain (Prim sary Dx) Start: 01-23-2024 End: 01-23-2024 ambulatory PÉREZ LUKE Not Available Start: 01-23-2024 End: 01-23-2024 ambulatory PÉREZ LUKE Not Available Start: 12-08-2023 End: 12-08-2023 Office outpatient visit 25 minutes Lisette Wooten DO Work Phone: [facility] Comment on above: Medicare annual well ness visit, subsequent (Primary Dx); ACP (advance care planning); Right hip pain; Greater trochanteric bursitis of right hip; Rash and nonspecific skin eruption; Mixed hyperlipidemia (CMS/HCC); Postoperative hypothyroidism (CMS/HCC); Class 1 obesity; Essential tremor; Genitourinary syndrome of menopause; Hyperparathyroidism (CMS/HCC); Sleep pattern disturbance; Vitamin D deficiency, unspecified; BMI 30.0-30.9,adult Start: 12-08-2023 End: 12-08-2023 Patient encounter procedure Lisette Wooten DO Work Phone: [facility] Work Phone: Start: 12-08-2023 End: 12-08-2023 ambulatory LISETTE WOOTEN Not Available Start: 06-27-2023 End: 06-27-2023 ambulatory Lisette Wooten Facility:[facility] Start: 06-24-2022 End: 06-24-2022 ambulatory DO Lisette Wooten Work Phone: [facility] Work Phone: Start: 06-24-2022 End: 06-24-2022 Patient encounter procedure DO Lisette Wooten Work Phone: [facility] Work Phone: Start: 05-26-2022 End: 05-27-[address] LISETTE MAYORGA Facility:[facility] Start: 02-08-2022 End: 02-08-2022 ambulatory LISETTE MAYORGA Facility:[facility] Procedures Date Procedure Procedure Detail Performing Clinician Start: 01-23-2024 Radex spine lumbosac ral 2/3 views Pérez Luke DO Work Phone: Start: 01-23-2024 Radiologic examinati on pelvis 1/2 views Pérez Luke DO Work Phone: Start: 06-27-2023 Mammography Pérez delgado DO Work Phone: Start: 06-24-2022 Screening mammograph y of bilateral breasts DO Lisette MurciaSarah Work Phone: Start: 06-28-2021 Colonoscopy Pérez delgado DO Work Phone: Plan of Treatment Date Care Activity Detail Author Start: 06-29-2031 Screening for malign ant neoplasm of colon [facility] Start: 06-28-2026 Screening for malign ant neoplasm of colon [facility] Start: 04-28-2025 End: 04-28-2025 Patient encounter procedure 04/28/2025 11:00 AM EST Office Visit [facility] [address] [place] [id number] Blaise Heredia, DO [address] [place] [address] [facility] Start: 12-10-2024 End: 12-10-2024 Patient encounter procedure 12/10/2024 9:00 AM EDT Office Visit [facility] [address] [place] [address] Lisette Wooten, DO [address] [place] [address] [facility] Start: 12-07-2024 Medicare Annual Well ness (AWV) Medicare Annual Wellness (AWV) [facility] Start: 07-17-2024 End: 07-17-2024 Patient encounter procedure 07/17/2024 1:00 PM EDT Office Visit [facility] [address] [place] [address] Clarice Robbins PA-C [address] [place] [address] [facility] Start: 06-26-2024 Screening for malign ant neoplasm of breast Mammogram [facility] Start: 06-11-2024 End: 06-11-2025 DXA Skeletal system Views for bone density DEXA bone density Imaging Routine Postmenopausal Osteoporosis screening Expected: 06/11/2024, Expires: 06/11/2025 [facility] Comment on above: Expected: 06/11/2024 , Expires: 06/11/2025 Start: 06-11-2024 End: 08-09-2025 MG Breast - bilateral Screening Bilateral screening mammogram Imaging Routine Encounter for screening mammogram for malignant neoplasm of breast Expected: 06/11/2024, Expires: 08/09/2025 [facility] Work Phone: Comment on above: Expected: 06/11/2024 , Expires: 08/09/2025 Start: 06-11-2024 End: 06-11-2024 Patient encounter procedure 06/11/2024 9:00 AM EST Office Visit [facility] [address] [place] [address] Lisette Wooten D, DO [address] [place] [address] [facility] Start: 2024 Respiratory Syncytia l Virus Immunization: Risk, 60-74 Risk, or 75+ (1 - 1-dose 75+ series) Respiratory Syncytial Virus Immunization: Risk, 60-74 Risk, or 75+ (1 - 1-dose 75+ series) [facility] Start: 2024 End: 2024 Patient encounter procedure 2024 1:00 PM EST Office Visit [facility] [address] [place] [address] Clarice Robbins PA-C [address] [place] [address] [facility] Start: 05-13-2024 End: 05-13-2024 Patient encounter procedure 05/13/2024 11:30 AM EST Office Visit [facility] [address] [place] [phone] Jerzy Hodges DO [address] [place] [address] [facility] Start: 05-10-2024 End: 05-10-2024 Patient encounter procedure 05/10/2024 8:[address] [facility] [address] [address] Jerzy Hodges DO [address] [place] [address] [facility] Start: 05-09-2024 End: 05-09-2024 Patient encounter procedure 05/09/2024 10:30 AM EST Office Visit [facility] [address] [place] [phone] Jerzy Hodges DO [address] [place] [address] [facility] Start: 04-28-2024 History and physical examination, annual for health maintenance Wellness Visit [facility] Start: 04-28-2024 Medicare Annual Well ness (AWV) Medicare Annual Wellness (AWV) [facility] Start: 03-05-2024 End: 03-05-2024 Patient encounter procedure 03/05/2024 11:00 AM EST Office Visit [facility] [address] [place] [phone] Pérez Luke DO [address] [place] [address] [facility] Start: 02-29-2024 End: 02-29-2024 ambulatory 02/29/2024 11:00 AM EST Treatment [facility] [address] [place] [address] Sergey Bolden, PT [address] [place] [address] [facility] Start: 02-27-2024 End: 02-27-2024 ambulatory 02/27/2024 11:00 AM EST Treatment [facility] [address] [place] [address] Sergey Bolden, PT [address] [place] [address] [facility] Start: 02-22-2024 End: 02-22-2024 ambulatory 02/22/2024 11:00 AM EST Treatment [facility] [address] [place] [address] Sergey Bolden, PT [address] [place] [address] [facility] Start: 02-20-2024 End: 02-20-2024 ambulatory [facility] Comment on above: Arrived Start: 02-13-2024 End: 02-13-2024 ambulatory 02/13/2024 11:30 AM EDT Treatment [facility] [address] [facility] [address] [place] [address] Sergey Bolden, PT [address] [facility] [address] [place] [address] [facility] Start: 02-08-2024 End: 02-08-2024 ambulatory [facility] Comment on above: Arrived Start: 02-06-2024 End: 02-06-2024 ambulatory [facility] Comment on above: Arrived Start: 02-01-2024 End: 02-01-2024 ambulatory [facility] Comment on above: Arrived Start: 01-30-2024 End: 01-30-2024 ambulatory [facility] Comment on above: Right hip pain Start: 12-17-2023 COVID-19 Vaccine ( season) COVID-19 Vaccine ( season) [facility] Start: 12-17-2023 COVID-19 Vaccine ( season) COVID-19 Vaccine ( season) [facility] Start: 12-17-2023 Influenza vaccination Influenza Vacc ine (#1) [facility] Start: 12-08-2023 End: 12-07-2024 XR Hip - right 3 Views XR hip right 2 or 3 views Imaging Routine Right hip pain Expected: 12/08/2023, Expires: 12/07/2024 [facility] Work Phone: Comment on above: Expected: 12/08/2023 , Expires: 12/07/2024 Start: 06-20-2018 Tetanus vaccination Tetanus: Every 1 0yrs [facility] Start: 2014 Fall risk assessment Falls Risk Asse ssment [facility] Start: 1999 Administration of he rpes zoster vaccine Zoster Vaccines (1 of 2) [facility] Start: 1999 Pneumococcal Vaccine : Age 50+ (1 of 1 - PCV) Pneumococcal Vaccine: Age 50+ (1 of 1 - PCV) [facility] Start: 1999 Screening for malign ant neoplasm of colon Flexible sigmoidoscopy [facility] Start: 1989 Screening for malign ant neoplasm of breast Mammogram [facility] Start: 1967 Hepatitis C screening Hepatitis C Sc reening [facility] Start: 1961 Depression screening using PHQ-9 (Patient Health Questionnaire 9) score Depression Screening/Follow-Up (PHQ-2/9) [facility] Start: 1952 History and physical examination, annual for health maintenance Wellness Visit [facility] Start: 1952 Medicare Wellness Visit Medicare Wel lness Visit [facility] Start: 1949 Screening for malign ant neoplasm of colon [facility] Start: 1949 Screening for osteoporosis Dexa Scan [facility] Start: 1949 Tetanus vaccination Tetanus: Every 1 0yrs [facility] End: 05-09-2025 MR Hip - right WO contrast MR Hip Right Without Contrast Imaging Routine Right hip pain 1 Occurrences starting 05/09/2024 until 05/09/2025 [facility] Work Phone: Comment on above: 1 Occurrences starti ng 05/09/2024 until 05/09/2025 End: 2025 XR Cervical spine AP and Lateral XR Cervical Spine AP/LAT/FLEX/EXT Imaging Routine S/P cervical spinal fusion 1 Occurrences starting 2024 until 2025 [facility] Work Phone: Comment on above: 1 Occurrences starti ng 2024 until 2025 End: 05-13-2025 XR Lumbar spine 2 or 3 Views XR Lumbar Spine 2-3 Views (Standard) Imaging Routine Back pain, unspecified back location, unspecified back pain laterality, unspecified chronicity 1 Occurrences starting 05/13/2024 until 05/13/2025 [facility] Work Phone: Comment on above: 1 Occurrences starti ng 05/13/2024 until 05/13/2025 End: 05-06-2025 XR Pelvis and Hip - right 2 Views XR Hip Right With Pelvis 2-3 Views (Routine) Imaging Routine Right hip pain 1 Occurrences starting 05/06/2024 until 05/06/2025 [facility] Work Phone: Comment on above: 1 Occurrences starti ng 05/06/2024 until 05/06/2025 Immunizations Immunization Date Immunization Notes Care Provider Tracy gonsalez 01-25-2024 influenza, seasonal, injectable Lisette Murcia-Salem DO Work Phone: [facility] Work Phone: 01-31-2023 Influenza, Seasonal, Quadrivalent, Adjuvanted Pérez Luke DO Work Phone: [facility] Work Phone: 01-31-2023 influenza virus vacc ine, unspecified formulation Pérez Luke DO Work Phone: [facility] 01-24-2022 Influenza, High-dose Seasonal, Quadrivalent, Preservative Free Pérez Luke DO Work Phone: [facility] 01-24-2022 influenza virus vacc ine, unspecified formulation Jerzy Hodges DO Work Phone: [facility] 02-05-2021 influenza, high dose seasonal, preservative-free Pérez Luke DO Work Phone: [facility] 07-07-2020 COVID-19 mRNA, Comir kelly (Pfizer) DO Lisette Murcia-Mukesh Work Phone: [facility] 06-15-2020 COVID-19 mRNA, Comir kelly (Pfizer) DO Lisette Murcia-Salem Work Phone: [facility] 02-22-2020 zoster vaccine recombinant Pérez Luke DO Work Phone: [facility] 01-10-2020 influenza, high dose seasonal, preservative-free Pérez Luke DO Work Phone: [facility] 11-27-2019 zoster vaccine recombinant Pérez Luke DO Work Phone: [facility] 11-14-2019 pneumococcal polysaccharide vaccine, 23 valent Pérez Luke DO Work Phone: [facility] 04-22-2019 influenza, injectabl e, madin yanira canine kidney, preservative free Pérez Luke DO Work Phone: [facility] 01-15-2018 Seasonal trivalent influenza vaccine, adjuvanted, preservative free Pérez Luke DO Work Phone: [facility] 01-18-2017 influenza, high dose seasonal, preservative-free Pérez Luke DO Work Phone: [facility] 08-05-2016 pneumococcal conjuga te vaccine, 13 valent Pérez Luke DO Work Phone: [facility] 02-11-2016 influenza, seasonal, injectable Pérez Luke DO Work Phone: [facility] 02-05-2015 influenza, seasonal, injectable, preservative free Pérez Luke DO Work Phone: [facility] 02-29-2012 seasonal influenza, intradermal, preservative free Pérez Luke DO Work Phone: [facility] 06-20-2008 tetanus and diphther ia toxoids, adsorbed, preservative free, for adult use (5 Lf of tetanus toxoid and 2 Lf of diphtheria toxoid) Pérez Luke DO Work Phone: [facility] Payers Date Payer Category Payer Miscellaneous or Other [facility] LIFE (NO AUTO) [id number] 2023 Self-pay [id number] 2022 Private Health Insurance [facility] [employer] [id number] 2022 Unknown [employer] [id number] 2022-Present [address] [address] [place] [address] [id number] 2022 Unknown [id number] 2014 Medicare [id number] 1959 Medicare [id number] 1959 Unknown [id number] 1949 Unknown [id number] 2.840.1.232996.3.579. 2.593 1949 Unknown [id number] 2.840.1.918849.3.579. 2.593 1949 Unknown [id number] 2.840.1.152952.3.579. 2.90 1949 Unknown [id number] 2.16840.1.227317.3.579. 2.903 1949 Unknown [id number] 2.16840.1.872568.3.579. 2.903 1949 Unknown [id number] 2.16840.1.664583.3.579. 2.903 1949 Unknown [id number] 2.16840.1.683740.3.579. 2.903 1949 Unknown [id number] 2.16.840.1.359183.3.579. 2.903 1949 Unknown [id number] 2.16.840.1.441199.3.579. 2.1259 1949 Unknown [id number] 2.16.840.1.711886.3.579. 2.1259 1949 Unknown [id number] 2.16.840.1.550872.3.579. 2.1259 1949 Unknown [id number] 2.16.840.1.820313.3.579. 2.125 1949 Unknown [id number] 2.16.840.1.959469.3.579. 2.1259 1949 Unknown [id number] 2.16.840.1.992328.3.579. 2.125 1949 Unknown [id number] 2.16.840.1.476653.3.579. 2.1259 1949 Unknown [id number] 2.16.840.1.918734.3.579. 2.1259 1949 Unknown [id number] 2.16.840.1.104529.3.579. 2.1259 1949 Unknown [id number] 2.16.840.1.698367.3.579. 2.125 1949 Unknown [id number] 2.16.840.1.220576.3.579. 2.1259 1949 Unknown [id number] 2.16.840.1.315152.3.579. 2.125 1949 Unknown [id number] 2.16.840.1.534741.3.579. 2.1259 1949 Unknown [id number] 2.16.840.1.505844.3.579. 2.1259 Private Health Insurance [facility] [id number] Unknown [id number] 2.16.840.1.515070.3.579. 2.531 Social History Date Type Detail Facility Start: 06-28-2021 End: 12-07-2022 Tobacco smoking status NHIS Never smoked tobacco (finding) [facility] Start: 1950 Sex Assigned At Female [facility] Start: 12-07-2022 End: 2024 Tobacco use and exposure Smokeless tobacco non-user [facility] Start: 01-23-2024 End: 06-11-2024 Alcoholic beverage intake Lifetime non-drinker (finding) [facility] Start: 06-09-2023 End: 12-08-2023 History of Social function [facility] Start: 06-09-2023 End: 12-08-2023 Alcohol Use Disorder Identification Test - Consumption [AUDIT-C] [facility] How often to you hav e a drink containing alcohol? Never [facility] How many standard dr inks containing alcohol do you have on a typical day? Patient does not drink [facility] Start: 12-07-2022 Alcohol Comment caffeine: coffee 2-3 cups a day [facility] Start: 1950 Sex assigned at Not on file [facility] smoking consumption unknown [facility] Clinical Notes 12-10-2023 to 06-11-2024 Lisette Wooten, DO - 06/11/2024 1:31 PM Fabiola Wooten, DO - 06/11/2024 1:27 PM Fabiola Wooten, DO - 06/11/2024 1:27 PM Fabiola Wooten, DO - 06/11/2024 9:00 AM EST Note Date & Type Note Facility 06-11-2024 History of Present illness Narrative Associated Problem(s): Class 1 obesity -Obesity is a term that means you have a body mass index (BMI) of 30 or higher. Obesity increases your risk of many conditions. Of major concern is that your risk of heart disease is increased. Of particular concern is that a [place] Heart Study analysis concluded that, after other cardiovascular risk factors are controlled, obese individuals have double the risk of new onset heart failure compared with normal weight subjects The risks for hypertension, stroke, diabetes, some cancers (including colon, postmenopausal breast cancer, kidney and esophageal), gallbladder disease, osteoarthritis, gout and breathing problems, such as sleep apnea are increased. I recommend you work on increasing physical activity and diet modifications to achieve goal BMI (less than 30 and preferably less than 25) in order to reduce risk of obesity-related complications. Specifically advised that weight loss if going to start in the kitchen more so than at the gym . While not everyone who is obese will develop one of the above mentioned diseases, the RISK is increased. -Losing a small amount of weight can reduce your chances of developing heart disease or a stroke. Losing even more weight has been shown to lower the risk even more. Associated Problem(s): Postoperative hypothyroidism (CMS/HCC) At this time, she is clinically and biochemically euthyroid. We will continue current dose of levothyroxine and continue to monitor TFTs. Associated Problem(s): Mixed hyperlipidemia (CMS/HCC) -Lipids have been good. She will be due for recheck for her next appt. -Since high cholesterol (especially LDL) is associated with an elevated risk of cardiovascular disease, which includes coronary artery disease, stroke and peripheral vascular disease, and has also been linked to diabetes and high blood pressure risks, by appropriately treating LDL, these risks can be reduced. Images from the original note were not included. Subjective Patient ID: Xiomara Blanco (: 1950) is a 74 y.o. female who presents for Routine 6 Mo Follow Up. HPI : Xiomara is being seen today for a routine six month follow up. Lab results from 10/2023 are documented in EHR for reference. Care gaps indicate recommendation for a seasonal flu vaccine. We are no longer giving these in office and pt will be referred to her local pharmacy if she would like to get one. Pt reports she did have a flu vaccine on 01/25/24 at [facility]- updated EHR. She will be due for a MMG after 06/26/24 and last had it done at [facility]. She last had a DEXA done on 05/28/20. T-scores were normal at that time. She has seen Ortho (First Dr Luke [facility] and then Dr Hodges with [facility]). Dr Luke recommended PT and possible steroid injection. She preferred to try PT first. She did do ~6 weeks of PT with some improvement, but she elected to get a 2nd opinion with Dr Hodges. Dr Hodges felt that while imaging did show some OA of the right hip, he suspected L-spine may be contributing. He ordered MRI of hip and then later imaging of the L-spine. She was then sent for PT more directed at her L-spine. She reports she is doing HEP (after a few formal PT sessions) and does feel her sx have improved. Current Outpatient Medications Medication Instructions aspirin 81 mg, Daily atorvastatin (LIPITOR) 40 mg, Oral, Daily Biotin w/ Vitamins C & E (Hair Skin & Nails Gummies) 1250-7.5-7.5 MCG-MG-UNT chewable tablet 1 tablet, Every 24 hours calcium citrate 1040 MG tablet 2 tablets, 3 times weekly cholecalciferol (Vitamin D-3) 50 MCG (1999 UT) tablet 1 tablet, Every 24 hours clotrimazole-betamethasone (Lotrisone) cream Topical, 2 times daily ibuprofen 800 mg, Every 8 hours PRN levothyroxine (SYNTHROID, LEVOXYL) 50 mcg, Oral, Daily meloxicam (MOBIC) 15 mg, Daily Multiple Vitamin (multivitamin) capsule 1 capsule, Daily [place]-3 Fatty Acids (Fish Oil) 1200 MG capsule delayed-release Daily psyllium (Metamucil) 48.57 % powder 1 Dose, Every 24 hours UNABLE TO FIND 1 tablet, Daily Allergies Allergen Reactions Acetylcysteine Other Reaction(s): skin rash/when touches hands Amantadine Other Reaction(s): constipation Diclofenac Other Reaction(s): flushing/sore mouth/puffiness in face Other Reaction(s): Redness of Skin Patient Active Problem List Diagnosis Mixed hyperlipidemia (CMS/HCC) Vitamin D deficiency Adenomatous polyp of colon Arthritis of left knee Eczema Essential tremor Hyperparathyroidism (CMS/HCC) Genitourinary syndrome of menopause Postoperative hypothyroidism (CMS/HCC) Sleep pattern disturbance Class 1 obesity ACP (advance care planning) Arthritis, lumbar spine Arthritis of right hip Social History Tobacco Use Smoking status: Never Smokeless tobacco: Never Substance Use Topics Alcohol use: Never Comment: caffeine: coffee 2-3 cups a day Drug use: Never Review of Systems Constitutional: Negative for activity change, appetite change, fatigue and unexpected weight change. HENT: Negative for ear pain, hearing loss, postnasal drip, sinus pain, trouble swallowing and voice change. Eyes: Negative for photophobia, pain and visual disturbance. Respiratory: Negative for cough, shortness of breath and wheezing. She reports no significant issues with her breathing Cardiovascular: Negative for chest pain, palpitations and leg swelling. Gastrointestinal: Negative for abdominal distention, abdominal pain, blood in stool and nausea. Genitourinary: Negative for decreased urine volume, difficulty urinating, dysuria, hematuria and vaginal discharge. Intermittent vaginal itching. Not associated with dysuria or discharge Musculoskeletal: Positive for arthralgias. Negative for back pain, gait problem and joint swelling. 11/2023- gets discomfort in the outer leg/thigh area. Gets worse with walking more than 10 minutes (she had been walking ~2 miles daily, but cannot now). Also into the groin. 05/2024- She saw Ortho for her hip. She went to PT (at [facility]), but did not feel this helped much. Dr Luke has recommended cortisone injection- but she did not want to do. -She saw another Ortho provider at [facility] and they did MRI. Advised PT, cortisone injection and to see spine provider. She saw the spine [facility] and they started meloxicam and she continued with PT (at [place]). She is seeing improvement Skin: Positive for rash. Negative for wound. 11/2023- she has noted rash involving the neck /upper chest area. Started a couple months ago. Also behind the earlobe and upper ear (left side > right side). She had used a perfume ~2 months ago, but nothing since. NO itching, she has used cortisone and the redness will lighten up some. Neurological: Positive for tremors. Negative for dizziness, speech difficulty, weakness, numbness and headaches. Psychiatric/Behavioral: Positive for sleep disturbance. Negative for confusion, decreased concentration and hallucinations. She occ has issues with sleep and has gotten a Mg supplement and just wants to make sure that is okay to take. Endocrine: Negative for polydipsia, polyphagia and polyuria. Allergic/Immunologic: Negative for immunocompromised state. Objective Vital signs: BP 102/50 Pulse 78 Wt 185 lb SpO2 97% BMI 30.79 kg/m No results found for this or any previous visit (from the past 12 weeks). Physical Exam Constitutional: General: She is not in acute distress. Appearance: Normal appearance. HENT: Head: Normocephalic. Eyes: General: No scleral icterus. Extraocular Movements: Extraocular movements intact. Conjunctiva/sclera: Conjunctivae normal. Neck: Vascular: No carotid bruit. Cardiovascular: Rate and Rhythm: Normal rate and regular rhythm. Heart sounds: No murmur heard. Pulmonary: Effort: Pulmonary effort is normal. No respiratory distress. Breath sounds: Normal breath sounds. No wheezing or rhonchi. Musculoskeletal: General: No swelling. Normal range of motion. Cervical back: Normal range of motion. Skin: General: Skin is warm and dry. Coloration: Skin is not jaundiced. Findings: No rash. Neurological: General: No focal deficit present. Mental Status: She is alert and oriented to person, place, and time. Motor: No weakness. Gait: Gait normal. Psychiatric: Mood and Affect: Mood normal. Behavior: Behavior normal. Thought Content: Thought content normal. Judgment: Judgment normal. Assessment/Plan Problem List Items Addressed This Visit Mixed hyperlipidemia (CMS/HCC) - Primary Overview Prescribed atorvastatin 10/2023: OE=099; HDL=57; YI=802; LDL=85; TC/HDL=2.9 Current Assessment & Plan -Lipids have been good. She will be due for recheck for her next appt. -Since high cholesterol (especially LDL) is associated with an elevated risk of cardiovascular disease, which includes coronary artery disease, stroke and peripheral vascular disease, and has also been linked to diabetes and high blood pressure risks, by appropriately treating LDL, these risks can be reduced. Postoperative hypothyroidism ([facility]) Overview Prescribed levothyroxine 50 mcg 10/2023: TSH=2.196; FT4=1.23 Current Assessment & Plan At this time, she is clinically and biochemically euthyroid. We will continue current dose of levothyroxine and continue to monitor TFTs. Vitamin D deficiency Overview Taking Vit d supplement (2000 international units daily) 10/2023: Vit D=58.8 Arthritis, lumbar spine Overview X-ray lumbar spine 05/22/24 -Multilevel DDD most notably at L5-S1 with anterior osteophytes; Slight rotation on A-P view Arthritis of right hip Overview MRI 05/2024-Moderate degeneration of the right hip joint. There is subchondral cyst formation of the right acetabulum. There is degenerative bone marrow edema of the right acetabulum and femoral head. There is high-grade chondral loss of the anterior aspect of the acetabulum. Other Visit Diagnoses Encounter for screening mammogram for malignant neoplasm of breast Relevant Orders Bilateral screening mammogram Osteoporosis screening Relevant Orders DEXA bone density Postmenopausal Relevant Orders DEXA bone density Health Maintenance Topic Date Due Medicare Annual Wellness (AWV) 12/07/2024 Colorectal Cancer Screening 06/28/2026 Influenza Vaccine Completed Pneumococcal Vaccine: 65+ Years Completed Mammogram Discontinued Immunization History Administered Date(s) Administered Influenza, High Dose Seasonal, Preservative Free 01/18/2017, 01/10/2020, 02/05/2021 Influenza, High-dose Seasonal, Quadrivalent, Preservative Free 01/24/2022 Influenza, Injectable, MDCK, preservative free 04/22/2019 Influenza, Seasonal, Quadrivalent, Adjuvanted 01/31/2023 Influenza, seasonal, injectable 02/11/2016, 01/25/2024 Influenza, seasonal, injectable, preservative free 02/05/2015 Influenza, seasonal, intradermal, preservative free 02/29/2012 Influenza, trivalent, adjuvanted 01/15/2018 Pfizer Purple Cap SARS-CoV-2 Vaccination 06/15/2020, 07/07/2020 Pneumococcal Conjugate PCV 13 08/05/2016 Pneumococcal Polysaccharide PPSV23 11/14/2019 Td (adult), 5 Lf tetanus toxoid, preservative free, adsorbed 06/20/2008 Zoster, Recombinant 11/27/2019, 02/22/2020 I spent a total of 42 minutes on the date of the service which included: time spent preparing to see the patient by reviewing last office note and chronic conditions, talking to the patient/documenting in the chart, reviewed notes from Ortho and Spine provider, examining the patient, placing orders in the chart and documenting in the chart after the visit. Protocols reviewed and updated. A collaborative plan of care has been created for pt regarding specific health concerns. Any barriers to care have been identified and addressed. Any part of this document that has been added/copied from other documents has been reviewed for accuracy and updated as appropriate at the time of the patient encounter. -Follow up in about 6 months (around 12/09/2024) for MW with [facility] and routine appt with me; sooner if any acute issues. Lisette Wooten D.O. Board Certified Voice Intercept Technician documented in this encounter [facility] 2024 Note Xiomara Blanco 1950 Impression/Plan: Problem List Items Addressed This Visit None Visit Diagnoses Lumbar radicular pain - Primary Relevant Medications meloxicam (MOBIC) 15 MG tablet Other Relevant Orders Ambulatory Ref to [facility] (PT/OT[facility]ST) Osteoarthritis of right hip, unspecified osteoarthritis type S/P cervical spinal fusion Relevant Orders XR Cervical Spine AP/LAT/FLEX/EXT New Prescriptions meloxicam (MOBIC) 15 MG tablet Take 1 (one) tablet (15 mg total) by mouth daily for 15 days . The patient's symptoms are suggestive of a possible right L3 lumbar radiculopathy. There also appears to be concomitant right hip pathology which may be causing an overlap of symptoms. She has already completed a full course of hip physical therapy and she does report some improvement of her symptoms so I am hopeful that by completing a dedicated lumbar physical therapy course, her symptoms will become more manageable. She has not tolerated Diclofenac Sodium in the past but does tolerate Ibuprofen so we will try Meloxicam, she has requested a short dose to see if it works before paying for a full course. I have encouraged her to continue with her HEP for her right hip and to possibly pursue a right hip injection, if she is comfortable. We discussed the possibility of MRI if her radicular symptoms continue despite non-operative care vs. Pain management referral for consideration of injections if her symptoms appear to be isolated back pain. She did have some imbalance and an episode of confusion on exam today and reports episodes of imbalance on occasion so I have encouraged her to follow up with a neurologist. She has seen one in the past for tremors. She has no other signs concerning for myelopathy such as hyperreflexia, neck pain, or positive hoffmans. Given her history of cervical spine fusion, we will order an X-ray of this area. Discussed with Dr. Alejandra regarding imbalance on exam, he agrees with the plan of x-ray and follow-up with neurology. Return in about 6 weeks (around 07/03/2024) for after PT. Clinical Findings: Xiomara Blanco is a 74 y.o. female person who is here for initial evaluation of right sided low back pain with radiculopathy. She had an injury in October 2023 where she slipped in the shower, her legs went opposite directions and she immediately developed pain in her right back and groin region. She does report a long history of back pain without radicular symptoms ever since she had her children that she was able to manage with HEP and careful body mechanics. For her current issue, she has been worked up by an orthopedic hip specialist for her right hip and was diagnosed with osteoarthritis. She completed a full course of PT for her right hip which did improve her symptoms. She was offered a right hip corticosteroid injection which made her a little nervous so she declined. She was also referred here for evaluation to determine if her pain was coming from her back. Her symptoms are primarily right leg pain with occasional back pain, starting in the right hip and radiating across to her right groin on the top 2/3 of her right thigh with occasional radiation to her right knee. The pain tends to worsen with more activity. She has days when the pain does not bother her but the days it does, she is very limited in her mobility. She used to walk 2 miles per day and now she finds herself limited in how far she can walk due to the pain. She also finds herself having to help her right leg when she lifts her leg to tie her shoe as it feels weak. She denies numbness/tingling, bilateral leg weakness. She has tried heat, ibuprofen, ice and deep breathing with some improvement in her symptoms. She has not completed PT for her back. She denies saddle anesthesia, urinary retention or bowel incontinence. Of note: she does have history of a cervical fusion, unknown levels. Suboxone New Patient Intake Visit (Lumbar pain -happened after fall this past October- was an avid walked and now can not walk without pain shooting down right leg) History reviewed. No pertinent past medical history. There is no problem list on file for this patient. @ MEDPAT@ Allergies Allergen Reactions Diclofenac Other (See Comments) Flushing/sore mouth/puffiness in face Acetylcysteine Rash Past Surgical History: Procedure Laterality Date CT COLONOSCOPY 06/28/2021 CT COLONOSCOPY Social Hx: , she reports that she has never smoked. She has never used smokeless tobacco. Patient reports no history of alcohol use. Patient has no history on file for drug use. Family Hx: family history is not on file. Review of Systems: Her review of systems as documented in the MA note is reviewed. Physical Exam VS: , , There is no height or weight on file to calculate BMI., BP: 118/84 Appearance: Well kept, normally developed Psy (more content not included)... [facility] 2024 History of Present illness Narrative Xiomara Blanco 1950 Impression/Plan: Problem List Items Addressed This Visit None Visit Diagnoses Lumbar radicular pain - Primary Relevant Medications meloxicam (MOBIC) 15 MG tablet Other Relevant Orders Ambulatory Ref to [facility] (PT/OT/ST) Osteoarthritis of right hip, unspecified osteoarthritis type S/P cervical spinal fusion Relevant Orders XR Cervical Spine AP/LAT/FLEX/EXT New Prescriptions meloxicam (MOBIC) 15 MG tablet Take 1 (one) tablet (15 mg total) by mouth daily for 15 days . The patient's symptoms are suggestive of a possible right L3 lumbar radiculopathy. There also appears to be concomitant right hip pathology which may be causing an overlap of symptoms. She has already completed a full course of hip physical therapy and she does report some improvement of her symptoms so I am hopeful that by completing a dedicated lumbar physical therapy course, her symptoms will become more manageable. She has not tolerated Diclofenac Sodium in the past but does tolerate Ibuprofen so we will try Meloxicam, she has requested a short dose to see if it works before paying for a full course. I have encouraged her to continue with her HEP for her right hip and to possibly pursue a right hip injection, if she is comfortable. We discussed the possibility of MRI if her radicular symptoms continue despite non-operative care vs. Pain management referral for consideration of injections if her symptoms appear to be isolated back pain. She did have some imbalance and an episode of confusion on exam today and reports episodes of imbalance on occasion so I have encouraged her to follow up with a neurologist. She has seen one in the past for tremors. She has no other signs concerning for myelopathy such as hyperreflexia, neck pain, or positive hoffmans. Given her history of cervical spine fusion, we will order an X-ray of this area. Discussed with Dr. Alejandra regarding imbalance on exam, he agrees with the plan of x-ray and follow-up with neurology. Return in about 6 weeks (around 07/03/2024) for after PT. Clinical Findings: Xiomara Blanco is a 74 y.o. female person who is here for initial evaluation of right sided low back pain with radiculopathy. She had an injury in October 2023 where she slipped in the shower, her legs went opposite directions and she immediately developed pain in her right back and groin region. She does report a long history of back pain without radicular symptoms ever since she had her children that she was able to manage with HEP and careful body mechanics. For her current issue, she has been worked up by an orthopedic hip specialist for her right hip and was diagnosed with osteoarthritis. She completed a full course of PT for her right hip which did improve her symptoms. She was offered a right hip corticosteroid injection which made her a little nervous so she declined. She was also referred here for evaluation to determine if her pain was coming from her back. Her symptoms are primarily right leg pain with occasional back pain, starting in the right hip and radiating across to her right groin on the top 2/3 of her right thigh with occasional radiation to her right knee. The pain tends to worsen with more activity. She has days when the pain does not bother her but the days it does, she is very limited in her mobility. She used to walk 2 miles per day and now she finds herself limited in how far she can walk due to the pain. She also finds herself having to help her right leg when she lifts her leg to tie her shoe as it feels weak. She denies numbness/tingling, bilateral leg weakness. She has tried heat, ibuprofen, ice and deep breathing with some improvement in her symptoms. She has not completed PT for her back. She denies saddle anesthesia, urinary retention or bowel incontinence. Of note: she does have history of a cervical fusion, unknown levels. Suboxone New Patient Intake Visit (Lumbar pain -happened after fall this past October- was an avid walked and now can not walk without pain shooting down right leg) History reviewed. No pertinent past medical history. There is no problem list on file for this patient. @ MEDPAT@ Allergies Allergen Reactions Diclofenac Other (See Comments) Flushing/sore mouth/puffiness in face Acetylcysteine Rash Past Surgical History: Procedure Laterality Date CT COLONOSCOPY 06/28/2021 CT COLONOSCOPY Social Hx: , she reports that she has never smoked. She has never used smokeless tobacco. Patient reports no history of alcohol use. Patient has no history on file for drug use. Family Hx: family history is not on file. Review of Systems: Her review of systems as documented in the MA note is reviewed. Physical Exam VS: , , There is no height or weight on file to calculate BMI., BP: 118/84 Appearance: Well kept, normally developed Psych: Alert, normal mood and affect Eyes: Anicteric Cardiovascular: No lower extremity edema, extremities warm Respiratory: Breathing unlabored Skin: no rashes Musculoskeletal: grossly intact motor strength bilateral with hip flexion, knee extension, ankle plantar and dorsiflexion and EHL extension at 5/5 with slight pain inhibition in right hip flexion. Straight leg raise neg equivocal on the right (pain felt more in the hip/groin). UE motor exam is strong and symmetric at 5/5 bilaterally. Negative hoffmans. Guarding noted with passive hip ROM on the right. No greater trochanteric bursal tenderness. No sciatic notch tenderness. Neurologic: Sensation intact to light touch bilateral L2-S1. Reflexes are 2+ patella and ankle bilaterally. No clonus. Gait/Station: slow and cautious walking Romberg: slight unsteadiness Global sagittal and coronal balance are within normal limits. Skin on the lower back is healthy with no rashes, lesions or surgical scars. No excessive kyphosis or scoliosis. Bilateral lower extremities are well perfused with no signs of DVT. Imaging: X-ray lumbar spine 05/22/24 - My interpretation: Multilevel DDD most notably at L5-S1 with anterior osteophytes Slight rotation on A-P view No fracture No spondylolisthesis The report: pending Clarice Robbins PA-C Spine Surgery [facility] documented in this encounter [facility] 2024 History of Present illness Narrative Xiomara Blanco 1950 Impression/Plan: Problem List Items Addressed This Visit None Visit Diagnoses Lumbar radicular pain - Primary Relevant Medications meloxicam (MOBIC) 15 MG tablet Other Relevant Orders Ambulatory Ref to [facility] (PT/OT/ST) Osteoarthritis of right hip, unspecified osteoarthritis type S/P cervical spinal fusion Relevant Orders XR Cervical Spine AP/LAT/FLEX/EXT New Prescriptions meloxicam (MOBIC) 15 MG tablet Take 1 (one) tablet (15 mg total) by mouth daily for 15 days . The patient's symptoms are suggestive of a possible right L3 lumbar radiculopathy. There also appears to be concomitant right hip pathology which may be causing an overlap of symptoms. She has already completed a full course of hip physical therapy and she does report some improvement of her symptoms so I am hopeful that by completing a dedicated lumbar physical therapy course, her symptoms will become more manageable. She has not tolerated Diclofenac Sodium in the past but does tolerate Ibuprofen so we will try Meloxicam, she has requested a short dose to see if it works before paying for a full course. I have encouraged her to continue with her HEP for her right hip and to possibly pursue a right hip injection, if she is comfortable. We discussed the possibility of MRI if her radicular symptoms continue despite non-operative care vs. Pain management referral for consideration of injections if her symptoms appear to be isolated back pain. She did have some imbalance and an episode of confusion on exam today and reports episodes of imbalance on occasion so I have encouraged her to follow up with a neurologist. She has seen one in the past for tremors. She has no other signs concerning for myelopathy such as hyperreflexia, neck pain, or positive hoffmans. Given her history of cervical spine fusion, we will order an X-ray of this area. Discussed with Dr. Alejandra regarding imbalance on exam, he agrees with the plan of x-ray and follow-up with neurology. Return in about 6 weeks (around 07/03/2024) for after PT. Clinical Findings: Xiomara Blanco is a 74 y.o. female person who is here for initial evaluation of right sided low back pain with radiculopathy. She had an injury in October 2023 where she slipped in the shower, her legs went opposite directions and she immediately developed pain in her right back and groin region. She does report a long history of back pain without radicular symptoms ever since she had her children that she was able to manage with HEP and careful body mechanics. For her current issue, she has been worked up by an orthopedic hip specialist for her right hip and was diagnosed with osteoarthritis. She completed a full course of PT for her right hip which did improve her symptoms. She was offered a right hip corticosteroid injection which made her a little nervous so she declined. She was also referred here for evaluation to determine if her pain was coming from her back. Her symptoms are primarily right leg pain with occasional back pain, starting in the right hip and radiating across to her right groin on the top 2/3 of her right thigh with occasional radiation to her right knee. The pain tends to worsen with more activity. She has days when the pain does not bother her but the days it does, she is very limited in her mobility. She used to walk 2 miles per day and now she finds herself limited in how far she can walk due to the pain. She also finds herself having to help her right leg when she lifts her leg to tie her shoe as it feels weak. She denies numbness/tingling, bilateral leg weakness. She has tried heat, ibuprofen, ice and deep breathing with some improvement in her symptoms. She has not completed PT for her back. She denies saddle anesthesia, urinary retention or bowel incontinence. Of note: she does have history of a cervical fusion, unknown levels. Suboxone New Patient Intake Visit (Lumbar pain -happened after fall this past October- was an avid walked and now can not walk without pain shooting down right leg) History reviewed. No pertinent past medical history. There is no problem list on file for this patient. @ MEDPAT@ Allergies Allergen Reactions Diclofenac Other (See Comments) Flushing/sore mouth/puffiness in face Acetylcysteine Rash Past Surgical History: Procedure Laterality Date CT COLONOSCOPY 06/28/2021 CT COLONOSCOPY Social Hx: , she reports that she has never smoked. She has never used smokeless tobacco. Patient reports no history of alcohol use. Patient has no history on file for drug use. Family Hx: family history is not on file. Review of Systems: Her review of systems as documented in the MA note is reviewed. Physical Exam VS: , , There is no height or weight on file to calculate BMI., BP: 118/84 Appearance: Well kept, normally developed Psych: Alert, normal mood and affect Eyes: Anicteric Cardiovascular: No lower extremity edema, extremities warm Respiratory: Breathing unlabored Skin: no rashes Musculoskeletal: grossly intact motor strength bilateral with hip flexion, knee extension, ankle plantar and dorsiflexion and EHL extension at 5/5 with slight pain inhibition in right hip flexion. Straight leg raise neg equivocal on the right (pain felt more in the hip/groin). UE motor exam is strong and symmetric at 5/5 bilaterally. Negative hoffmans. Guarding noted with passive hip ROM on the right. No greater trochanteric bursal tenderness. No sciatic notch tenderness. Neurologic: Sensation intact to light touch bilateral L2-S1. Reflexes are 2+ patella and ankle bilaterally. No clonus. Gait/Station: slow and cautious walking Romberg: slight unsteadiness Global sagittal and coronal balance are within normal limits. Skin on the lower back is healthy with no rashes, lesions or surgical scars. No excessive kyphosis or scoliosis. Bilateral lower extremities are well perfused with no signs of DVT. Imaging: X-ray lumbar spine 05/22/24 - My interpretation: Multilevel DDD most notably at L5-S1 with anterior osteophytes Slight rotation on A-P view No fracture No spondylolisthesis The report: Narrative & Impression EXAMINATION: XR LUMBAR SPINE 2-3 VIEWS (STANDARD) HISTORY: LUMBAR PAIN COMPARISON: None. IMPRESSION: FINDINGS/ 1. No acute fracture or dislocation. 2. Rightward scoliotic curvature of the lumbar spine centered L3. 3. Diffuse idiopathic skeletal hyperostosis of the lower thoracic spine. 4. Large stool burden of the colon. 5. Mild degeneration of the sacroiliac joints. 6. Lumbar spine vertebral body height is preserved. 7. Moderate facet arthropathy of the lower lumbar spine. Moderate disc degeneration at L5-S1. Clarice Robbins PA-C Spine Surgery [facility] documented in this encounter [facility] 2024 Instructions Clarice Robbins PA-C - 2024 1:52 PM EST Images from the original note were not included. Low Back - Exercises: For your exercise program I want you to perform 2 types of exercises: 1. General fitness exercise, and 2. Low back specific strengthening exercises. 1. Some form of general fitness exercise is important to help your overall conditioning, improve your endorphin level, and this also helps strengthen your core if you focus to maintain your trunk in a neutral posture while you pursue those fitness exercises. The simplest form of exercise is a walking program. Try to work up to 30 minutes of brisk walking daily. If you are unable to tolerate that much walking, try breaking it up into 2 15-minute segments. Other forms of fitness exercise could include stationary bicycling, outdoor bicycling, an elliptical ammonia distiller, or swimming. Swimming is often the best tolerated form of fitness exercise. 2. Low Back Pain: Exercises These exercises aim to strengthen, and NOT stretch your back. It's also important to do regular exercise for general fitness, ideally 30 minutes a day. Keep your hamstrings stretched also, but try to avoid stretching your back. Your Care Instructions Here are some examples of typical rehabilitation exercises for your condition. Start each exercise slowly. Ease off the exercise if you start to have pain. Your doctor or physical therapist will tell you when you can start these exercises and which ones will work best for you. How to do the exercises Alternate arm and leg (bird dog) exercise Note: Do this exercise slowly. Try to keep your body straight at all times, and do not let one hip drop lower than the other. Start on the floor, on your hands and knees. Tighten your belly muscles. Raise one leg off the floor, and hold it straight out behind you. Be careful not to let your hip drop down, because that will twist your trunk. Hold for about 6 seconds, then lower your leg and switch to the other leg. Repeat 8 to 12 times on each leg. Over time, work up to holding for 10 to 30 seconds each time. If you feel stable and secure with your leg raised, try raising the opposite arm straight out in front of you at the same time. [id number] exercise Lie on your back with your knees bent and your feet flat on the floor. Bring one knee to your chest, keeping the other foot flat on the floor (or keeping the other leg straight, whichever feels better on your lower back). Keep your lower back pressed to the floor. Hold for at least 15 to 30 seconds. Relax, and lower the knee to the starting position. Repeat with the other leg. Repeat 2 to 4 times with each leg. To get more stretch, put your other leg flat on the floor while pulling your knee to your chest. Curl-ups Lie on the floor on your back with your knees bent at a 90-degree angle. Your feet should be flat on the floor, about 12 inches from your buttocks. Cross your arms over your chest. If this bothers your neck, try putting your hands behind your neck (not your head), with your elbows spread apart. Slowly tighten your belly muscles and raise your shoulder blades off the floor. Keep your head in line with your body, and do not press your chin to your chest. Hold this position for 1 or 2 seconds, then slowly lower yourself back down to the floor. Repeat 8 to 12 times. Pelvic tilt exercise Lie on your back with your knees bent. Brace your stomach. This means to tighten your muscles by pulling in and imagining your belly button moving toward your spine. You should feel like your back is pressing to the floor and your hips and pelvis are rocking back. Hold for about 6 seconds while you breathe smoothly. Repeat 8 to 12 times. Heel dig bridging Lie on your back with both knees bent and your ankles bent so that only your heels are digging into the floor. Your knees should be bent about 90 degrees. Then push your heels into the floor, squeeze your buttocks, and lift your hips off the floor until your shoulders, hips, and knees are all in a straight line. Hold for about 6 seconds as you continue to breathe normally, and then slowly lower your hips back down to the floor and rest for up to 10 seconds. Do 8 to 12 repetitions. Hamstring stretch in doorway Lie on your back in a doorway, with one leg through the open door. Slide your leg up the wall to straighten your knee. You should feel a gentle stretch down the back of your leg. Hold the stretch for at least 15 to 30 seconds. Do not arch your back, point your toes, or bend either knee. Keep one heel touching the floor and the other heel touching the wall. Repeat with your other leg. Do 2 to 4 times for each leg. Hip flexor stretch Kneel on the floor with one knee bent and one leg behind you. Place your forward knee over your foot. Keep your other knee touching the floor. Slowly push your hips forward until you feel a stretch in the upper thigh of your rear leg. Hold the stretch for at least 15 to 30 seconds. Repeat with your other leg. Do 2 to 4 times on each side. Wall sit Stand with your back 10 to 12 inches away from a wall. Lean into the wall until your back is flat against it. Slowly slide down until your knees are slightly bent, pressing your lower back into the wall. Hold for about 6 seconds, then slide back up the wall. Repeat 8 to 12 times. Follow-up care is a grace part of your treatment and safety. Be sure to make and go to all appointments, and call your doctor if you are having problems. It's also a good idea to know your test results and keep a list of the medicines you take. Where can you learn more? Log into your personal health record on [email or web address] and enter Z938 in the Education box to learn more about Low Back Pain: Exercises. Current as of: September 05, 2014 Content Version: 10.6 0633-3793 [employer] Care instructions adapted under license by your healthcare professional. If you have questions about a medical condition or this instruction, always ask your healthcare professional. [employer] disclaims any warranty or liability for your use of this information. documented in this encounter [facility] 05-13-2024 Note 05/13/24 Xiomara Blanco 1950 CHIEF COMPLAINT Right hip pain HISTORY Xiomara Blanco is a 73 y.o. year old female presents today for follow-up of her right hip. She is here to go over her MRI results. She states she is still getting some pain to the anterior aspect of her hip and leg. She also is getting some pain to the back of her hip as well. She is still been working on her exercises. She denies new concerns or complaints otherwise. REVIEW OF SYSTEMS 10 point ROS performed and is negative except as stated in HPI PAST MEDICAL HISTORY The patient's Medications, Allergies, Past Surgical History, Medical History, Family History and Social History were reviewed and can be found in their online medical record. PHYSICAL EXAM General: Patient is well developed, well nourished in no apparent distress. They are awake and oriented x 3. Appropriate mood and affect. Pt ambulates with a mildly antalgic gait. Appropriate balance. Right Hip: No wounds, swelling, or erythema. No TTP. Mild hip pain with flexion and internal rotation. Positive straight leg raise. Motor is intact for TA, EHL, GSC. Sensation intact to light touch in the medial/lateral, plantar, and dorsal surfaces of the foot, and the first dorsal webspace. 2+ DP and PT pulses. IMAGING MRI of the right hip from 05/10/2024 was reviewed independently by me and demonstrates mild to moderate degenerative changes about the hip joint with an effusion. No obvious tendon tear seen. IMPRESSION Right hip pain with mild osteoarthritis PLAN At this time we had a long discussion. We discussed the results of the MRI in detail and that it does not appear she has a tear. She does have some arthritis of her hip with an effusion. Again, we discussed that a lot of her pain is likely coming from the hip however some of this could be coming from her lumbar spine. We discussed trying a hip injection however she would prefer to have a lumbar spine eval prior to proceeding with this. We did put this referral in today. I will plan to see her as needed. X-rays upon next visit:No. Jerzy Hodges, DO Note: To expedite correspondence this note was generated by [employer] recognition software. Some grammatical or spelling errors may occur using the system. AUTHENTICATED BY JERZY HODGES, ON 05/13/2024 11:26:13 [facility] 05-13-2024 History of Present illness Narrative 05/13/24 Xiomara Blanco 1950 CHIEF COMPLAINT Right hip pain HISTORY Xiomara Blanco is a 73 y.o. year old female presents today for follow-up of her right hip. She is here to go over her MRI results. She states she is still getting some pain to the anterior aspect of her hip and leg. She also is getting some pain to the back of her hip as well. She is still been working on her exercises. She denies new concerns or complaints otherwise. REVIEW OF SYSTEMS 10 point ROS performed and is negative except as stated in HPI PAST MEDICAL HISTORY The patient's Medications, Allergies, Past Surgical History, Medical History, Family History and Social History were reviewed and can be found in their online medical record. PHYSICAL EXAM General: Patient is well developed, well nourished in no apparent distress. They are awake and oriented x 3. Appropriate mood and affect. Pt ambulates with a mildly antalgic gait. Appropriate balance. Right Hip: No wounds, swelling, or erythema. No TTP. Mild hip pain with flexion and internal rotation. Positive straight leg raise. Motor is intact for TA, EHL, GSC. Sensation intact to light touch in the medial/lateral, plantar, and dorsal surfaces of the foot, and the first dorsal webspace. 2+ DP and PT pulses. IMAGING MRI of the right hip from 05/10/2024 was reviewed independently by me and demonstrates mild to moderate degenerative changes about the hip joint with an effusion. No obvious tendon tear seen. IMPRESSION Right hip pain with mild osteoarthritis PLAN At this time we had a long discussion. We discussed the results of the MRI in detail and that it does not appear she has a tear. She does have some arthritis of her hip with an effusion. Again, we discussed that a lot of her pain is likely coming from the hip however some of this could be coming from her lumbar spine. We discussed trying a hip injection however she would prefer to have a lumbar spine eval prior to proceeding with this. We did put this referral in today. I will plan to see her as needed. X-rays upon next visit:No. Jerzy Hodges DO Note: To expedite correspondence this note was generated by [employer] voice recognition software. Some grammatical or spelling errors may occur using the system. documented in this encounter [facility] 05-09-2024 Note 05/09/24 Xiomara Blanco 1950 CHIEF COMPLAINT Right hip pain HISTORY Xiomara Blanco is a 73 y.o. year old female presents today for evaluation of right hip pain. She states that in October of this past year she slipped in the shower and injured her hip. She said since that time she has had pain to the front aspect of her hip it does radiate down her leg somewhat. She was seeing another orthopedic surgeon. She states that she tried physical therapy for over 6 weeks and did not see much improvement. He did discuss a steroid injection however she was a little hesitant at that time. She is hoping to get a second opinion today. She states she does have some lumbar spine issues. She states that her pain is worse after walking for 5 to 10 minutes. It does get better if she sits down. She denies numbness or tingling. Denies fever chills or sweats. REVIEW OF SYSTEMS 10 point ROS performed and is negative except as stated in HPI PAST MEDICAL HISTORY The patient's Medications, Allergies, Past Surgical History, Medical History, Family History and Social History were reviewed and can be found in their online medical record. PHYSICAL EXAM General: Patient is well developed, well nourished in no apparent distress. They are awake and oriented x 3. Appropriate mood and affect. Pt ambulates with a mildly antalgic gait. Appropriate balance. Right Hip: No wounds, swelling, or erythema. No TTP. Mild hip pain with flexion and internal rotation. Positive straight leg raise. Motor is intact for TA, EHL, GSC. Sensation intact to light touch in the medial/lateral, plantar, and dorsal surfaces of the foot, and the first dorsal webspace. 2+ DP and PT pulses. IMAGING X-ray of the right hip from today was reviewed independently by me and demonstrates mild degenerative changes with slight loss of joint space. She does appear to have lumbar degenerative changes. IMPRESSION Right hip pain with mild osteoarthritis PLAN At this time we had a long discussion. I am not sure if this is true hip pain versus coming from her lumbar spine. She does have a little bit of early arthritis but her joint spaces appear well-maintained. Unfortunately she did not do well with therapy. At this point I would like to get an MRI of her hip to further evaluate. If the MRI does not show significant changes we may consider a spine eval. X-rays upon next visit:No. Jerzy Hodges, DO Note: To expedite correspondence this note was generated by [employer] voice recognition software. Some grammatical or spelling errors may occur using the system. AUTHENTICATED BY JERZY HODGES, ON 05/09/2024 11:09:20 [facility] 05-09-2024 History of Present illness Narrative 05/09/24 Xiomara Blanco 1950 CHIEF COMPLAINT Right hip pain HISTORY Xiomara Blanco is a 73 y.o. year old female presents today for evaluation of right hip pain. She states that in October of this past year she slipped in the shower and injured her hip. She said since that time she has had pain to the front aspect of her hip it does radiate down her leg somewhat. She was seeing another orthopedic surgeon. She states that she tried physical therapy for over 6 weeks and did not see much improvement. He did discuss a steroid injection however she was a little hesitant at that time. She is hoping to get a second opinion today. She states she does have some lumbar spine issues. She states that her pain is worse after walking for 5 to 10 minutes. It does get better if she sits down. She denies numbness or tingling. Denies fever chills or sweats. REVIEW OF SYSTEMS 10 point ROS performed and is negative except as stated in HPI PAST MEDICAL HISTORY The patient's Medications, Allergies, Past Surgical History, Medical History, Family History and Social History were reviewed and can be found in their online medical record. PHYSICAL EXAM General: Patient is well developed, well nourished in no apparent distress. They are awake and oriented x 3. Appropriate mood and affect. Pt ambulates with a mildly antalgic gait. Appropriate balance. Right Hip: No wounds, swelling, or erythema. No TTP. Mild hip pain with flexion and internal rotation. Positive straight leg raise. Motor is intact for TA, EHL, GSC. Sensation intact to light touch in the medial/lateral, plantar, and dorsal surfaces of the foot, and the first dorsal webspace. 2+ DP and PT pulses. IMAGING X-ray of the right hip from today was reviewed independently by me and demonstrates mild degenerative changes with slight loss of joint space. She does appear to have lumbar degenerative changes. IMPRESSION Right hip pain with mild osteoarthritis PLAN At this time we had a long discussion. I am not sure if this is true hip pain versus coming from her lumbar spine. She does have a little bit of early arthritis but her joint spaces appear well-maintained. Unfortunately she did not do well with therapy. At this point I would like to get an MRI of her hip to further evaluate. If the MRI does not show significant changes we may consider a spine eval. X-rays upon next visit:No. Jerzy Hodges DO Note: To expedite correspondence this note was generated by [employer] voice recognition software. Some grammatical or spelling errors may occur using the system. documented in this encounter [facility] 03-05-2024 History of Present illness Narrative Images from the original note were not included. @SEUN@ Xiomara Whitehead Francis is a 73 y.o. female who presents for No chief complaint on file. HPI: History of Present Illness The patient presents for follow up right hip. She reports overall good health and has been diligently performing the exercises recommended by her therapist, Sergey, both during therapy sessions and at home. She has been consistent with her exercises, which include strengthening and flexibility routines, and believes they are beneficial. She experiences mild soreness in her knee, but today, both her hip and knee feel comfortable. She suspects she may have twisted her knee during a split exercise but is uncertain. She reports no swelling in the knee. SUBJECTIVE: MEDICATIONS: Current Outpatient Medications Medication Instructions aspirin 81 mg, Oral, Daily atorvastatin (LIPITOR) 40 mg, Oral, Daily Biotin w/ Vitamins C & E (Hair Skin & Nails Gummies) 1250-7.5-7.5 MCG-MG-UNT chewable tablet 1 tablet, Oral, Every 24 hours calcium citrate 1040 MG tablet 2 tablets, Oral, 3 times weekly cholecalciferol (Vitamin D-3) 50 MCG (2000 UT) tablet 1 tablet, Oral, Every 24 hours clotrimazole-betamethasone (Lotrisone) cream Topical, 2 times daily ibuprofen 800 mg, Oral, Every 8 hours PRN levothyroxine (SYNTHROID, LEVOXYL) 50 mcg, Oral, Daily Multiple Vitamin (multivitamin) capsule 1 capsule, Oral, Daily [place]-3 Fatty Acids (Fish Oil) 1200 MG capsule delayed-release Oral, Daily psyllium (Metamucil) 48.57 % powder 1 Dose, Oral, Every 24 hours UNABLE TO FIND 1 tablet, Oral, Daily, Balance of nature ALLERGIES: Allergies Allergen Reactions Acetylcysteine Other Reaction(s): skin rash/when touches hands Amantadine Other Reaction(s): constipation Diclofenac Other Reaction(s): flushing/sore mouth/puffiness in face Other Reaction(s): Redness of Skin SURGICAL HISTORY: Past Surgical History: Procedure Laterality Date ANTERIOR FIXATION AND POSTERIOR MICRODISCECTOMY CERVICAL SPINE 2008 C5-C6 APPENDECTOMY 1979 CERVICAL DISCECTOMY 2008 interior cervical COLONOSCOPY 06/28/[address] Tapia COLONOSCOPY W/ POLYPECTOMY 05/26/2015 Dr. Tapia HERNIA REPAIR 1993 umbilical INJECTION TENDON OR LIGAMENT Left 05/2018 visco-supplement injections, knee with Dr. Wyatt PARATHYROIDECTOMY 2007 THYROIDECTOMY, PARTIAL 2012 thyroid nodule FAMILY HISTORY: Family History Problem Relation Name Age of Onset Lymphoma Mother Heart disease Father Ovarian cancer Maternal Grandmother Rheum arthritis Sibling Hypothyroidism Sibling Hyperthyroidism Sibling Bilateral breast cancer Sibling Other (dardners disease) Sibling Mental illness Sibling Lymphoma Mother's Sister SOCIAL HISTORY: Social History Tobacco Use Smoking status: Never Smokeless tobacco: Never Substance Use Topics Alcohol use: Never Comment: caffeine: coffee 2-3 cups a day Drug use: Never Depression: Not at risk (12/08/2023) PHQ-2 PHQ-2 Score: 0 REVIEW OF SYMPTOMS: Review of Systems The review of systems, history and current medications list are all reviewed today. OBJECTIVE: Visit Vitals OB Status Postmenopausal Smoking Status Never Physical Exam Alert and oriented, no acute distress. Mood and affect are appropriate. Ambulating independently. Gait is nonantalgic. Left hip can internally rotate to about 20 degrees, externally rotate to about 30 degrees. Right hip can internally rotate to about 15 degrees, externally rotate to about 15 degrees. Full extension of right knee is observed. No swelling is felt. Right knee shows negative Felicity's. There is no valgus instability and no varus instability. Negative anterior drawer and negative posterior drawer are noted. Tenderness is present over the medial joint line. Ortho Exam Results ASSESSMENT AND PLAN: I reviewed the history, physical exam, diagnostic studies, and diagnosis with the patient. Assessment & Plan 1. Advanced degenerative osteoarthrosis, right hip The knee pain could be due to a knee issue or potentially referred pain from the hip. There is tenderness over the lateral and medial joint lines of the right knee, but no swelling or instability was noted. She was advised to continue with her current exercise regimen, which includes strengthening and flexibility exercises. If any specific exercise exacerbates her pain, she should discontinue it. Injections into the hip and/or knee remain an option if the pain worsens. She is to inform if her condition deteriorates. The patient would like to leave follow up to his/her own discretion. A total of 20 to 29 minutes was spent on this patient encounter which included chart review, check in, nurse triage, history taking, physical examination, diagnostic study review, patient counseling and discussion, entering information into the patient's medical record, and coordinating patient care There are no diagnoses linked to this encounter. Pérez Luke D.O. Attestation This note was created using voice recognition through [employer]. documented in this encounter [facility] 02-27-2024 History of Present illness Narrative Physical Therapy Treatment Visit Patient Name: Xiomara Blanco Today's Date: 02/27/24 Encounter Diagnoses Name Primary? Right hip pain Yes Primary osteoarthritis of right hip Visit number: 7 Timed Code Treatment Minutes: 53 minutes Total Treatment Time: 63 minutes Time In: 1100 Time Out: 1203 History: Pt. Presents to PT with c/c of right hip pain. Pt. Slipped in shower over 18 of October weekend but did not fall, causing her leg to splay out. Has been having hip pain since fall. Pain is located in right groin and medial thigh. Reports before fall she was walking 2 miles daily but now she is unable to walk long distances. Takes ibuprofen for pain. Reports hip pain is limiting her quality of life and functional mobility with daily tasks. Goal is to return to walking 2 miles. Precautions: universal Subjective: Pt reports of no hip pain today. Does report of increased knee pain today. Pain: 0/10 hip, right knee 4/10 Objective: PT Evaluation (01/30/24) Right hip AROM: flexion 105 deg, Right hip PROM: flexion 110 deg, abduction 20 deg, (tight), IR 15 deg (tight), ER 20 deg (tight) Joint: hypomobility in right hip (moderate) Flexibility: moderate hamstring and piriformis muscle tightness Strength: right hip flexion 4-/5, SLR 3/5, hip abduction 4-/5, extension 4/5 Gait: antalgic gait pattern Treatment: PT evaluation ( minutes) Education: HEP education with demonstration, Educated on Eval Findings and POC Manual Therapy: (12 minutes) Passive ROM, Joint mobilization, Soft Tissue Mobilization, Myofascial Release, Muscle Energy Technique, Neural Mobilization, Myofascial Cupping, Dry Needling, IASTM, and Scar mobilization Therapeutic Exercise: (24 minutes) Strength, Endurance, Flexibility, ROM, HEP, Neural Mobilization, Power, and Core Stability Therapeutic Activity: (17 minutes) Exercises to improve dynamic activities, functional tasks, functional mobility to return to prior activity level Neuromuscular re-education: Balance Training, Muscle Facilitation, Dynamic Stability, Core Stabilization, and Blood Flow Restriction Training (BFRT) Modalities: Heat, Ice, Electrical Stimulation, Ultrasound, Cervical Mechanical Traction, Lumbar Mechanical Traction, Iontophoresis, and Fluidotherapy Assessment: Pt. Has participated in 7 PT session with start of POC on 01/30/24 for right hip OA. Pt will benefit from skilled PT services. Right knee pain still limits her functional mobility. Difficulty and increased medial thigh pain with SLR, good tolerance with step ups and squats but continues to have right knee pain. No hip pain with exercises other than SLR. Possible Discharge with HEP next session. Outcome Measure: 39/80 Short Term Goal: To be met in 2 weeks Goal 1: Pt to be instructed in home exercise program. [employer] Goals: To be met in 10 weeks Goal 1: Pt to report independence and compliance with home program. Goal 2: Pt. Will report of 0/10 right hip pain to allow her to return to walking 2 miles. Goal 3: Pt. Will demonstrate normal functional hip ROM grossly in all planes to allow her to return to walking 2 miles. Goal 4: Pt. Will demonstrate normal right hip muscle flexibility to allow her to walk long distances and improve her functional mobility. Goal 5: Pt. Will demonstrate 5/5 right hip strength grossly in all planes to allow her to walk/stand for long periods of time. Pt will benefit from skilled PT for 1-2x/week from 01/30/24 to 04/09/24 to address the above impairments. I hereby deem this POC medically necessary. Please sign below. Date: documented in this encounter [facility] 02-22-2024 History of Present illness Narrative Physical Therapy Treatment Visit Patient Name: Xiomara Blanco Today's Date: 02/22/24 Encounter Diagnoses Name Primary? Right hip pain Yes Primary osteoarthritis of right hip Visit number: 6 Timed Code Treatment Minutes: 53 minutes Total Treatment Time: 63 minutes Time In: 1100 Time Out: 1203 History: Pt. Presents to PT with c/c of right hip pain. Pt. Slipped in shower over 18 of October weekend but did not fall, causing her leg to splay out. Has been having hip pain since fall. Pain is located in right groin and medial thigh. Reports before fall she was walking 2 miles daily but now she is unable to walk long distances. Takes ibuprofen for pain. Reports hip pain is limiting her quality of life and functional mobility with daily tasks. Goal is to return to walking 2 miles. Precautions: universal Subjective: Pt reports of no hip pain today. Does report of increased knee pain today. Pain: 0/10 hip, right knee 5/10 Objective: PT Evaluation (01/30/24) Right hip AROM: flexion 105 deg, Right hip PROM: flexion 110 deg, abduction 20 deg, (tight), IR 15 deg (tight), ER 20 deg (tight) Joint: hypomobility in right hip (moderate) Flexibility: moderate hamstring and piriformis muscle tightness Strength: right hip flexion 4-/5, SLR 3/5, hip abduction 4-/5, extension 4/5 Gait: antalgic gait pattern Treatment: PT evaluation ( minutes) Education: HEP education with demonstration, Educated on Eval Findings and POC Manual Therapy: (12 minutes) Passive ROM, Joint mobilization, Soft Tissue Mobilization, Myofascial Release, Muscle Energy Technique, Neural Mobilization, Myofascial Cupping, Dry Needling, IASTM, and Scar mobilization Therapeutic Exercise: (24 minutes) Strength, Endurance, Flexibility, ROM, HEP, Neural Mobilization, Power, and Core Stability Therapeutic Activity: (17 minutes) Exercises to improve dynamic activities, functional tasks, functional mobility to return to prior activity level Neuromuscular re-education: Balance Training, Muscle Facilitation, Dynamic Stability, Core Stabilization, and Blood Flow Restriction Training (BFRT) Modalities: Heat, Ice, Electrical Stimulation, Ultrasound, Cervical Mechanical Traction, Lumbar Mechanical Traction, Iontophoresis, and Fluidotherapy Assessment: Pt. Has participated in 6 PT session with start of POC on 01/30/24 for right hip OA. Pt will benefit from skilled PT services. Pt. Continues to progress well. No hip pain but did have increased medial thigh pain with 2# SLR. Pt. Demonstrates increased right LE strength. Outcome Measure: 39/80 Short Term Goal: To be met in 2 weeks Goal 1: Pt to be instructed in home exercise program. [facility] Goals: To be met in 10 weeks Goal 1: Pt to report independence and compliance with home program. Goal 2: Pt. Will report of 0/10 right hip pain to allow her to return to walking 2 miles. Goal 3: Pt. Will demonstrate normal functional hip ROM grossly in all planes to allow her to return to walking 2 miles. Goal 4: Pt. Will demonstrate normal right hip muscle flexibility to allow her to walk long distances and improve her functional mobility. Goal 5: Pt. Will demonstrate 5/5 right hip strength grossly in all planes to allow her to walk/stand for long periods of time. Pt will benefit from skilled PT for 1-2x/week from 01/30/24 to 04/09/24 to address the above impairments. I hereby deem this POC medically necessary. Please sign below. Date: documented in this encounter [facility] 02-20-2024 History of Present illness Narrative Physical Therapy Treatment Visit Patient Name: Xiomara Blanco Today's Date: 02/20/24 Encounter Diagnoses Name Primary? Right hip pain Yes Primary osteoarthritis of right hip Visit number: 5 Timed Code Treatment Minutes: 53 minutes Total Treatment Time: 63 minutes Time In: 1135 Time Out: 1238 History: Pt. Presents to PT with c/c of right hip pain. Pt. Slipped in shower over 18 of October weekend but did not fall, causing her leg to splay out. Has been having hip pain since fall. Pain is located in right groin and medial thigh. Reports before fall she was walking 2 miles daily but now she is unable to walk long distances. Takes ibuprofen for pain. Reports hip pain is limiting her quality of life and functional mobility with daily tasks. Goal is to return to walking 2 miles. Precautions: universal Subjective: Pt reports of no hip pain today. Does report of increased knee pain today. Pain: 0/10 hip Objective: PT Evaluation (01/30/24) Right hip AROM: flexion 105 deg, Right hip PROM: flexion 110 deg, abduction 20 deg, (tight), IR 15 deg (tight), ER 20 deg (tight) Joint: hypomobility in right hip (moderate) Flexibility: moderate hamstring and piriformis muscle tightness Strength: right hip flexion 4-/5, SLR 3/5, hip abduction 4-/5, extension 4/5 Gait: antalgic gait pattern Treatment: PT evaluation ( minutes) Education: HEP education with demonstration, Educated on Eval Findings and POC Manual Therapy: (12 minutes) Passive ROM, Joint mobilization, Soft Tissue Mobilization, Myofascial Release, Muscle Energy Technique, Neural Mobilization, Myofascial Cupping, Dry Needling, IASTM, and Scar mobilization Therapeutic Exercise: (24 minutes) Strength, Endurance, Flexibility, ROM, HEP, Neural Mobilization, Power, and Core Stability Therapeutic Activity: (17 minutes) Exercises to improve dynamic activities, functional tasks, functional mobility to return to prior activity level Neuromuscular re-education: Balance Training, Muscle Facilitation, Dynamic Stability, Core Stabilization, and Blood Flow Restriction Training (BFRT) Modalities: Heat, Ice, Electrical Stimulation, Ultrasound, Cervical Mechanical Traction, Lumbar Mechanical Traction, Iontophoresis, and Fluidotherapy Assessment: Pt. Has participated in 4 PT session with start of POC on 01/30/24 for right hip OA. Pt will benefit from skilled PT services. Pt. Continues to progress well. No hip pain but did have increased medial thigh pain with 2# SLR. Pt. Demonstrates increased right LE strength. Outcome Measure: 39/80 Short Term Goal: To be met in 2 weeks Goal 1: Pt to be instructed in home exercise program. [employer] Goals: To be met in 10 weeks Goal 1: Pt to report independence and compliance with home program. Goal 2: Pt. Will report of 0/10 right hip pain to allow her to return to walking 2 miles. Goal 3: Pt. Will demonstrate normal functional hip ROM grossly in all planes to allow her to return to walking 2 miles. Goal 4: Pt. Will demonstrate normal right hip muscle flexibility to allow her to walk long distances and improve her functional mobility. Goal 5: Pt. Will demonstrate 5/5 right hip strength grossly in all planes to allow her to walk/stand for long periods of time. Pt will benefit from skilled PT for 1-2x/week from 01/30/24 to 04/09/24 to address the above impairments. I hereby deem this POC medically necessary. Please sign below. Date: documented in this encounter [facility] 02-08-2024 History of Present illness Narrative Physical Therapy Treatment Visit Patient Name: Xiomara Blanco Today's Date: 02/08/24 Encounter Diagnoses Name Primary? Right hip pain Yes Primary osteoarthritis of right hip Visit number: 4 Timed Code Treatment Minutes: 53 minutes Total Treatment Time: 63 minutes Time In: 1300 Time Out: 1403 History: Pt. Presents to PT with c/c of right hip pain. Pt. Slipped in shower over 18 of October weekend but did not fall, causing her leg to splay out. Has been having hip pain since fall. Pain is located in right groin and medial thigh. Reports before fall she was walking 2 miles daily but now she is unable to walk long distances. Takes ibuprofen for pain. Reports hip pain is limiting her quality of life and functional mobility with daily tasks. Goal is to return to walking 2 miles. Precautions: universal Subjective: Pt reports of less hip pain and more knee pain today. Compliant with HEP. Pain: 0/10 hip, 4/10 knee Objective: PT Evaluation (01/30/24) Right hip AROM: flexion 105 deg, Right hip PROM: flexion 110 deg, abduction 20 deg, (tight), IR 15 deg (tight), ER 20 deg (tight) Joint: hypomobility in right hip (moderate) Flexibility: moderate hamstring and piriformis muscle tightness Strength: right hip flexion 4-/5, SLR 3/5, hip abduction 4-/5, extension 4/5 Gait: antalgic gait pattern Treatment: PT evaluation ( minutes) Education: HEP education with demonstration, Educated on Eval Findings and POC Manual Therapy: (12 minutes) Passive ROM, Joint mobilization, Soft Tissue Mobilization, Myofascial Release, Muscle Energy Technique, Neural Mobilization, Myofascial Cupping, Dry Needling, IASTM, and Scar mobilization Therapeutic Exercise: (24 minutes) Strength, Endurance, Flexibility, ROM, HEP, Neural Mobilization, Power, and Core Stability Therapeutic Activity: (17 minutes) Exercises to improve dynamic activities, functional tasks, functional mobility to return to prior activity level Neuromuscular re-education: Balance Training, Muscle Facilitation, Dynamic Stability, Core Stabilization, and Blood Flow Restriction Training (BFRT) Modalities: Heat, Ice, Electrical Stimulation, Ultrasound, Cervical Mechanical Traction, Lumbar Mechanical Traction, Iontophoresis, and Fluidotherapy Assessment: Pt. Has participated in 3 PT session with start of POC on 01/30/24 for right hip OA. Pt will benefit from skilled PT services. Pt. Demonstrates improved hip ROM in all planes, good tolerance with ther ex. Today. Pt. Continues to improve LE strength to help improve her quality of life. Progressing well toward PT goals. Outcome Measure: 39/80 Short Term Goal: To be met in 2 weeks Goal 1: Pt to be instructed in home exercise program. [employer] Goals: To be met in 10 weeks Goal 1: Pt to report independence and compliance with home program. Goal 2: Pt. Will report of 0/10 right hip pain to allow her to return to walking 2 miles. Goal 3: Pt. Will demonstrate normal functional hip ROM grossly in all planes to allow her to return to walking 2 miles. Goal 4: Pt. Will demonstrate normal right hip muscle flexibility to allow her to walk long distances and improve her functional mobility. Goal 5: Pt. Will demonstrate 5/5 right hip strength grossly in all planes to allow her to walk/stand for long periods of time. Pt will benefit from skilled PT for 1-2x/week from 01/30/24 to 04/09/24 to address the above impairments. I hereby deem this POC medically necessary. Please sign below. Date: documented in this encounter [facility] 02-06-2024 History of Present illness Narrative Physical Therapy Evaluation Visit Patient Name: Xiomara Blanco Today's Date: 02/06/24 Encounter Diagnoses Name Primary? Right hip pain Yes Primary osteoarthritis of right hip Visit number: 3 Timed Code Treatment Minutes: 53 minutes Total Treatment Time: 63 minutes Time In: 1100 Time Out: 1203 History: Pt. Presents to PT with c/c of right hip pain. Pt. Slipped in shower over 18 of October weekend but did not fall, causing her leg to splay out. Has been having hip pain since fall. Pain is located in right groin and medial thigh. Reports before fall she was walking 2 miles daily but now she is unable to walk long distances. Takes ibuprofen for pain. Reports hip pain is limiting her quality of life and functional mobility with daily tasks. Goal is to return to walking 2 miles. Precautions: universal Subjective: Pt. Reports hip is feeling better but having increased knee pain today. Compliant with HEP. Pain: 0/10 hip, 4/10 knee Objective: PT Evaluation (01/30/24) Right hip AROM: flexion 105 deg, Right hip PROM: flexion 110 deg, abduction 20 deg, (tight), IR 15 deg (tight), ER 20 deg (tight) Joint: hypomobility in right hip (moderate) Flexibility: moderate hamstring and piriformis muscle tightness Strength: right hip flexion 4-/5, SLR 3/5, hip abduction 4-/5, extension 4/5 Gait: antalgic gait pattern Treatment: PT evaluation ( minutes) Education: HEP education with demonstration, Educated on Eval Findings and POC Manual Therapy: (12 minutes) Passive ROM, Joint mobilization, Soft Tissue Mobilization, Myofascial Release, Muscle Energy Technique, Neural Mobilization, Myofascial Cupping, Dry Needling, IASTM, and Scar mobilization Therapeutic Exercise: (24 minutes) Strength, Endurance, Flexibility, ROM, HEP, Neural Mobilization, Power, and Core Stability Therapeutic Activity: (17 minutes) Exercises to improve dynamic activities, functional tasks, functional mobility to return to prior activity level Neuromuscular re-education: Balance Training, Muscle Facilitation, Dynamic Stability, Core Stabilization, and Blood Flow Restriction Training (BFRT) Modalities: Heat, Ice, Electrical Stimulation, Ultrasound, Cervical Mechanical Traction, Lumbar Mechanical Traction, Iontophoresis, and Fluidotherapy Assessment: Pt. Has participated in 2 PT session with start of POC on 01/30/24 for right hip OA. Pt will benefit from skilled PT services. Pt. Demonstrates improved hip ROM in all planes, good tolerance with ther ex. Today. Outcome Measure: 39/80 Short Term Goal: To be met in 2 weeks Goal 1: Pt to be instructed in home exercise program. [facility] Goals: To be met in 10 weeks Goal 1: Pt to report independence and compliance with home program. Goal 2: Pt. Will report of 0/10 right hip pain to allow her to return to walking 2 miles. Goal 3: Pt. Will demonstrate normal functional hip ROM grossly in all planes to allow her to return to walking 2 miles. Goal 4: Pt. Will demonstrate normal right hip muscle flexibility to allow her to walk long distances and improve her functional mobility. Goal 5: Pt. Will demonstrate 5/5 right hip strength grossly in all planes to allow her to walk/stand for long periods of time. Pt will benefit from skilled PT for 1-2x/week from 01/30/24 to 04/09/24 to address the above impairments. I hereby deem this POC medically necessary. Please sign below. Date: documented in this encounter [facility] 02-01-2024 History of Present illness Narrative Physical Therapy Evaluation Visit Patient Name: Xiomara Blanco Today's Date: 02/01/2024 Encounter Diagnoses Name Primary? Right hip pain Yes Primary osteoarthritis of right hip Visit number: 2 Timed Code Treatment Minutes: 53 minutes Total Treatment Time: 53 minutes Time In: 1100 Time Out: 1153 History: Pt. Presents to PT with c/c of right hip pain. Pt. Slipped in shower over 18 of October weekend but did not fall, causing her leg to splay out. Has been having hip pain since fall. Pain is located in right groin and medial thigh. Reports before fall she was walking 2 miles daily but now she is unable to walk long distances. Takes ibuprofen for pain. Reports hip pain is limiting her quality of life and functional mobility with daily tasks. Goal is to return to walking 2 miles. Precautions: universal Subjective: Pt. Reports hip feels very tight today. Pain: 5-6/10 Objective: PT Evaluation (01/30/24) Right hip AROM: flexion 105 deg, Right hip PROM: flexion 110 deg, abduction 20 deg, (tight), IR 15 deg (tight), ER 20 deg (tight) Joint: hypomobility in right hip (moderate) Flexibility: moderate hamstring and piriformis muscle tightness Strength: right hip flexion 4-/5, SLR 3/5, hip abduction 4-/5, extension 4/5 Gait: antalgic gait pattern Treatment: PT evaluation ( minutes) Education: HEP education with demonstration, Educated on Eval Findings and POC Manual Therapy: (12 minutes) Passive ROM, Joint mobilization, Soft Tissue Mobilization, Myofascial Release, Muscle Energy Technique, Neural Mobilization, Myofascial Cupping, Dry Needling, IASTM, and Scar mobilization Therapeutic Exercise: (24 minutes) Strength, Endurance, Flexibility, ROM, HEP, Neural Mobilization, Power, and Core Stability Therapeutic Activity: (17 minutes) Exercises to improve dynamic activities, functional tasks, functional mobility to return to prior activity level Neuromuscular re-education: Balance Training, Muscle Facilitation, Dynamic Stability, Core Stabilization, and Blood Flow Restriction Training (BFRT) Modalities: Heat, Ice, Electrical Stimulation, Ultrasound, Cervical Mechanical Traction, Lumbar Mechanical Traction, Iontophoresis, and Fluidotherapy Assessment: Pt. Has participated in 1 PT session with start of POC on 01/30/24 for right hip OA. Pt will benefit from skilled PT services. Outcome Measure: 39/80 Short Term Goal: To be met in 2 weeks Goal 1: Pt to be instructed in home exercise program. [employer] Goals: To be met in 10 weeks Goal 1: Pt to report independence and compliance with home program. Goal 2: Pt. Will report of 0/10 right hip pain to allow her to return to walking 2 miles. Goal 3: Pt. Will demonstrate normal functional hip ROM grossly in all planes to allow her to return to walking 2 miles. Goal 4: Pt. Will demonstrate normal right hip muscle flexibility to allow her to walk long distances and improve her functional mobility. Goal 5: Pt. Will demonstrate 5/5 right hip strength grossly in all planes to allow her to walk/stand for long periods of time. Pt will benefit from skilled PT for 1-2x/week from 01/30/24 to 04/09/24 to address the above impairments. I hereby deem this POC medically necessary. Please sign below. Date: documented in this encounter [facility] 01-23-2024 History of Present illness Narrative Images from the original note were not included. @SEUN@ Xiomara Blanco is a 73 y.o. female who presents for Pain of the Right Hip HPI: History of Present Illness The patient is a 73-year-old female presenting as a new patient today, referred by Dr. Divina Mayorga for evaluation of her right hip. She recounts an incident on the weekend of 10/19/2023 when she slipped in the shower, causing her left leg to splay out. Although she did not fall, she experienced immediate pain, which she attempted to alleviate with ibuprofen, ice packs, and heat packs. Prior to this incident, she was able to walk 2 miles daily. However, she now experiences momentary inability to move due to pain in her right groin and medial thigh. She believes this incident triggered her current symptoms. Despite her efforts to self-treat, her condition did not improve, prompting her to seek medical attention during her wellness check with Dr. Divina Denise. She reports difficulty lifting her leg and getting into her car. She does not take ibuprofen regularly, only when experiencing pain, at a dosage of 800 mg every 8 hours. She has attempted some exercises and stretches independently. She also mentions a history of lower back issues since the of her three children, which she manages with ibuprofen and cold and heat packs. She takes [id number] fish oil and makes efforts to maintain her health. SUBJECTIVE: MEDICATIONS: Current Outpatient Medications Medication Instructions aspirin 81 mg, Oral, Daily atorvastatin (LIPITOR) 40 mg, Oral, Daily Biotin w/ Vitamins C & E (Hair Skin & Nails Gummies) 1250-7.5-7.5 MCG-MG-UNT chewable tablet 1 tablet, Oral, Every 24 hours calcium citrate 1040 MG tablet 2 tablets, Oral, 3 times weekly cholecalciferol (Vitamin D-3) 50 MCG (2000 UT) tablet 1 tablet, Oral, Every 24 hours clotrimazole-betamethasone (Lotrisone) cream Topical, 2 times daily ibuprofen 800 mg, Oral, Every 8 hours PRN levothyroxine (SYNTHROID, LEVOXYL) 50 mcg, Oral, Daily Multiple Vitamin (multivitamin) capsule 1 capsule, Oral, Daily [place]-3 Fatty Acids (Fish Oil) 1200 MG capsule delayed-release Oral, Daily psyllium (Metamucil) 48.57 % powder 1 Dose, Oral, Every 24 hours UNABLE TO FIND 1 tablet, Oral, Daily, Balance of nature ALLERGIES: Allergies Allergen Reactions Acetylcysteine Other Reaction(s): skin rash/when touches hands Amantadine Other Reaction(s): constipation Diclofenac Other Reaction(s): flushing/sore mouth/puffiness in face Other Reaction(s): Redness of Skin SURGICAL HISTORY: Past Surgical History: Procedure Laterality Date ANTERIOR FIXATION AND POSTERIOR MICRODISCECTOMY CERVICAL SPINE 2008 C5-C6 APPENDECTOMY 1979 CERVICAL DISCECTOMY 2008 interior cervical COLONOSCOPY 06/28/[address] Tapia COLONOSCOPY W/ POLYPECTOMY 05/26/2015 Dr. Tapia HERNIA REPAIR 1994 umbilical INJECTION TENDON OR LIGAMENT Left 05/2018 visco-supplement injections, knee with Dr. Wyatt PARATHYROIDECTOMY 2007 THYROIDECTOMY, PARTIAL 2012 thyroid nodule FAMILY HISTORY: Family History Problem Relation Name Age of Onset Lymphoma Mother Heart disease Father Ovarian cancer Maternal Grandmother Rheum arthritis Sibling Hypothyroidism Sibling Hyperthyroidism Sibling Bilateral breast cancer Sibling Other (dardners disease) Sibling Mental illness Sibling Lymphoma Mother's Sister SOCIAL HISTORY: Social History Tobacco Use Smoking status: Never Smokeless tobacco: Never Substance Use Topics Alcohol use: Never Comment: caffeine: coffee 2-3 cups a day Drug use: Never Depression: Not at risk (12/08/2023) PHQ-2 PHQ-2 Score: 0 REVIEW OF SYMPTOMS: Review of Systems The review of systems, history and current medications list are all reviewed today. OBJECTIVE: Visit Vitals Ht 5' 5 Wt 185 lb BMI 30.79 kg/m OB Status Postmenopausal Smoking Status Never BSA 1.96 m Physical Exam Alert and oriented, no acute distress. Mood and affect are appropriate. Ambulating independently. Gait is nonantalgic. Ankles demonstrate 5 out of 5 dorsiflexion and plantar flexion strength. Both knees exhibit 5 out of 5 extension and flexion. Hip flexion is 5 out of 5 bilaterally. Left hip shows negative log roll and Stinchfield. Internal rotation of left hip is about 30 degrees and external rotation is about 40 degrees. Right hip also shows negative log roll. Positive Stinchfield on the right. Internal rotation of right hip is about 10 degrees and external rotation is about 10 degrees. Hip abduction and adduction strength is 5 out of 5. Ortho Exam Results Imaging 3 views lumbar spine, AP/lateral/L5-S1, taken today and saved to the permanent medical record. Significant multilevel degenerative changes. AP pelvis taken today, AP/lateral right hip(s) taken 12/08/2023 and saved to the permanent medical record. Advanced arthritis in the right hip. Moderate arthritis in the left hip. ASSESSMENT AND PLAN: I reviewed the history, physical exam, diagnostic studies, and diagnosis with the patient. Assessment & Plan 1. Right hip advanced arthritis. The right hip exhibits advanced arthritis with significant wear of the ball and socket joint. This condition has developed over time and was likely exacerbated by a recent slip in the shower. She has been using ibuprofen 800 mg as needed for pain relief. A referral for physical therapy will be made to provide exercises that can be performed at home. If there is no improvement after six weeks, a cortisone injection may be considered. The patient prefers to have the same therapist for consistency. 2. Left hip moderate arthritis. The left hip shows signs of moderate arthritis but is not as severe as the right. This condition is currently not causing significant symptoms but will be monitored. 3. Lumbar spondylosis Current symptoms are related to the right hip joint rather than the low back. Follow-up Return in 6 weeks for follow up. A total of 45-59 minutes was spent on this patient encounter which included chart review, check in, nurse triage, history taking, physical examination, diagnostic study review, patient counseling and discussion, entering information into the patient's medical record, and coordinating patient care. Diagnoses and all orders for this visit: Right hip pain - XR pelvis 1 or 2 views - XR lumbar spine 2 or 3 views - Ambulatory referral to Physical Therapy; Future Pérez Luke D.O. Attestation This note was created using voice recognition through [employer] artificial intelligence. documented in this encounter [facility] 12-10-2023 History of Present illness Narrative Associated Problem(s): Vitamin D deficiency, unspecified Continue current dose Associated Problem(s): Genitourinary syndrome of menopause Suspect her sx are due to postmenopausal changes. She can try OTC vaginal moisturizer. Would consider topical Estrogen if sx not adequately improved with OTC treatment Associated Problem(s): Class 1 obesity -Obesity is a term that means you have a body mass index (BMI) of 30 or higher. Obesity increases your risk of many conditions. Of major concern is that your risk of heart disease is increased. Of particular concern is that a [place] Heart Study analysis concluded that, after other cardiovascular risk factors are controlled, obese individuals have double the risk of new onset heart failure compared with normal weight subjects The risks for hypertension, stroke, diabetes, some cancers (including colon, postmenopausal breast cancer, kidney and esophageal), gallbladder disease, osteoarthritis, gout and breathing problems, such as sleep apnea are increased. I recommend you work on increasing physical activity and diet modifications to achieve goal BMI (less than 30 and preferably less than 25) in order to reduce risk of obesity-related complications. Specifically advised that weight loss if going to start in the kitchen more so than at the gym . While not everyone who is obese will develop one of the above mentioned diseases, the RISK is increased. -Losing a small amount of weight can reduce your chances of developing heart disease or a stroke. Losing even more weight has been shown to lower the risk even more. Associated Problem(s): Postoperative hypothyroidism (CMS/HCC) TFTs therapeutic. She is clinically euthyroid. No dose change at this time Associated Problem(s): Mixed hyperlipidemia (CMS/HCC) Lipids look good/at goals -Reinforced importance of dietary modification, regular cardiovascular activity and compliance with any prescribed medication for group home management/control of lipids. High cholesterol (especially LDL) is associated with an elevated risk of cardiovascular disease. This includes coronary artery disease. stroke and peripheral vascular disease. High cholesterol has also been linked to diabetes and high blood pressure risks. By appropriately treating LDL, these risks can be reduced. Images from the original note were not included. Subjective : Chief Complaint: Xiomara Blanco (: 1950) is an 73 y.o. female here for an annual Medicare Wellness visit and Routine 6 Mo Follow Up HPI : Xiomara is being seen today for an annual MW with the HEARING AID SPECIALIST and a routine six month follow up with Dr. Murcia. She had lab work done for today's visit. The results and any recommendations will be reviewed with her. Care Gaps do not indicate any screenings or vaccinations that are due at this time. Patient slipped in the shower in September and is continuing to have R hip and upper leg pain. She did have a chiropractor adjustment and has been doing home exercise that has not helped. She was using the heating pad and has used ibuprofen. The discomfort increases with walking. She has also been doing stretches per her chiropractor's instructions. --- She c/o some itching in vaginal area today. Is something that can come and go. Current Outpatient Medications Medication Instructions aspirin 81 mg, Oral, Daily atorvastatin (LIPITOR) 40 mg, Oral, Daily Biotin w/ Vitamins C & E (Hair Skin & Nails Gummies) 1250-7.5-7.5 MCG-MG-UNT chewable tablet 1 tablet, Oral, Every 24 hours calcium citrate 1040 MG tablet 2 tablets, Oral, 3 times weekly cholecalciferol (Vitamin D-3) 50 MCG (2000 UT) tablet 1 tablet, Oral, Every 24 hours clotrimazole-betamethasone (Lotrisone) cream Topical, 2 times daily ibuprofen 800 mg, Oral, Every 8 hours PRN levothyroxine (SYNTHROID, LEVOXYL) 50 mcg, Oral, Daily Multiple Vitamin (multivitamin) capsule 1 capsule, Oral, Daily [place]-3 Fatty Acids (Fish Oil) 1200 MG capsule delayed-release Oral, Daily psyllium (Metamucil) 48.57 % powder 1 Dose, Oral, Every 24 hours UNABLE TO FIND 1 tablet, Oral, Daily, Balance of nature Allergies Allergen Reactions Acetylcysteine Other Reaction(s): skin rash/when touches hands Amantadine Other Reaction(s): constipation Diclofenac Other Reaction(s): flushing/sore mouth/puffiness in face Other Reaction(s): Redness of Skin Past Medical History: Diagnosis Date Adenomatous polyp of colon, unspecified part of colon Arthritis of left knee Eczema Hyperlipidemia (CMS/HCC) Hyperparathyroidism (CMS/HCC) Postmenopausal atrophic vaginitis Postoperative hypothyroidism (CMS/HCC) Sleep pattern disturbance Vitamin D deficiency Patient's PSH, SOCHx and Family Hx have been reviewed and updated if needed. Review of Systems Constitutional: Negative for activity change, appetite change, fatigue and unexpected weight change. HENT: Negative for ear pain, hearing loss, postnasal drip, sinus pain, trouble swallowing and voice change. Eyes: Negative for photophobia, pain and visual disturbance. Respiratory: Negative for cough, shortness of breath and wheezing. Cardiovascular: Negative for chest pain, palpitations and leg swelling. Gastrointestinal: Negative for abdominal distention, abdominal pain, blood in stool and nausea. Genitourinary: Negative for decreased urine volume, difficulty urinating, dysuria, hematuria and vaginal discharge. Intermittent vaginal itching. Not associated with dysuria or discharge Musculoskeletal: Negative for arthralgias, back pain, gait problem and joint swelling. 11/2023- gets discomfort in the outer leg/thigh area. Gets worse with walking more than 10 minutes (she had been walking ~2 miles daily, but cannot now). Also into the groin. Skin: Positive for rash. Negative for wound. 11/2023- she has noted rash involving the neck /upper chest area. Started a couple months ago. Also behind the earlobe and upper ear (left side > right side). She had used a perfume ~2 months ago, but nothing since. NO itching, she has used cortisone and the redness will lighten up some. Neurological: Positive for tremors. Negative for dizziness, speech difficulty, weakness, numbness and headaches. Psychiatric/Behavioral: Positive for sleep disturbance. Negative for confusion, decreased concentration and hallucinations. She occ has issues with sleep and has gotten a Mg supplement and just wants to make sure that is okay to take. Endocrine: Negative for polydipsia, polyphagia and polyuria. Allergic/Immunologic: Negative for immunocompromised state. List of current healthcare providers: Patient Care Team: Lisette Wooten DO as PCP - General (Internal Medicine) Lisette Wooten DO as PCP - ACO Reach Magaly Douglass (Ophthalmology) Shanon Lobo LPN as Licensed Practical Nurse (Family Medicine) Nela Alfredo MD as Consulting Physician (Dermatology) Jacqueline Ramos MD as Consulting Physician (Neurology) Jae Seymour MD as Referring Physician (Ophthalmology) Blaise Heredia DO as Referring Physician (Obstetrics and Gynecology) Medicare Annual Visit Over the past 2 weeks, how often have you been bothered by any of the following problems? Little interest or pleasure in doing things: Not at all Feeling down, depressed, or hopeless: Not at all Patient Health Questionnaire-2 Score: 0 Sweet Fall Risk History of Falling, Immediate or Within 3 Months: No Mental Status: Oriented to own ability Health Risk Assessment Form Do you need help eating, bathing, using the toilet, dressing, or getting around your home?: No Can you prepare your own meals?: Yes Can you do your own housework without help?: Yes Can you shop for groceries or clothes without help?: Yes Do you exercise for about 20 minutes 3 or more days a week?: No How confident are you that you can control and manage most of your health problems?: Very confident Can you mange your money, credit cards and accounts, pay bills and taxes?: Yes Vision Screening: Yes, patient sees regular tipple supervisor/auto mechanic Hearing Screening: (Pt denies any difficulty hearing) Cognitive Screening Self Assessment: No overt cognitive deficiency is apparent by direct observation Three Word Registration: Apple, Watch, Betsy Clock Drawing: Normal Clock - 2 Three Word Recall: All 3 words correct - 3 Total Score (0-5 Points): 5 Pain Assessment Pain Score: 0 - No pain Objective : Vital signs: BP 118/76 Pulse 88 Wt 185 lb 9.6 oz SpO2 98% BMI 30.89 kg/m Recent Results (from the past 2016 hour(s)) ALL CBC WITH AUTO DIFF Collection Time: 10/17/23 8:18 AM Result Value Ref Range [facility] WBC 6.3 4.0 - 11.0 10 3/uL [facility] RBC 5.19 4.20 - 5.40 10 6/uL [facility] HGB 15.5 12.0 - 16.0 g/dL TB[facility] HCT 45.6 36.0 - 48.0 % [facility] MCV 87.9 81.0 - 99.0 fL [facility] MCH 29.9 26.7 - 34.0 pg TB[facility] MCHC 34.0 29.9 - 35.2 g/dL [facility] RDW 11.9 11.0 - 15.0 % [facility] PLT 195 150 - 450 10 3/uL [facility] MPV 10.1 9.5 - 13.5 fL NEUTROPHILS PERCENT AUTO 56.9 43.0 - 75.0 % LYMPHOCYTES PERCENT AUTO 30.0 20.5 - 60.0 % MONOCYTES PERCENT AUTO 8.9 1.7 - 12.0 % TBH EO % 3.5 0.9 - 7.0 % BASOPHILS PERCENT AUTO 0.5 0.2 - 2.0 % IMMATURE GRANULOCYTES PCT AUTO 0.2 0.0 - 0.5 % NEUTROPHILS ABSOLUTE AUTO 3.6 1.4 - 6.5 10 3/uL LYMPHOCYTES ABSOLUTE AUTO 1.9 1.2 - 3.8 10 3/uL MONOCYTES ABSOLUTE AUTO 0.6 0.3 - 0.8 10 3/uL TBH EO # 0.2 0.0 - 0.7 10 3/uL BASOPHILS ABSOLUTE AUTO 0.0 0.0 - 0.1 10 3/uL IMMATURE GRANULOCYTES ABS AUTO 0.01 0.00 - 0.03 10 3/uL [facility] CMP (CMP) (FOR REMOTE [facility] USE) Collection Time: 10/17/23 8:18 AM Result Value Ref Range SODIUM 142 136 - 145 mmol/L POTASSIUM 3.7 3.5 - 5.1 mmol/L CHLORIDE 106 98 - 107 mmol/L CARBON DIOXIDE 25.8 21.0 - 32.0 mmol/L ANION GAP 13.9 GLUCOSE 99 74 - 106 mg/dL BLOOD UREA NITROGEN 12.0 7.0 - 18.0 mg/dL CREATININE 0.73 0.55 - 1.02 mg/dL TBH EGFR-AF SAO TOMEAN >60 >=60 TBH EGFR-NON AF SAO TOMEAN >60 >=60 BUN CREATININE RATIO 16.4 CALCIUM 8.6 8.5 - 10.1 mg/dL BILIRUBIN TOTAL 1.1 (H) 0.2 - 1.0 mg/dL ASPARTATE AMINO TRANSFERASE 17 15 - 37 U/L ALANINE AMINOTRANSFERASE 30 14 - 59 U/L ALKALINE PHOSPHATASE 95 46 - 116 U/L TOTAL PROTEIN 6.9 6.4 - 8.2 g/dL ALBUMIN LEVEL 3.7 3.4 - 5.0 g/dL GLOBULIN 3.2 g/dL ALBUMIN GLOBULIN RATIO 1.2 ALL LIPID PROFILE (FASTING) Collection Time: 10/17/23 8:18 AM Result Value Ref Range TRIGLYCERIDES 102 <=150 mg/dL CHOLESTEROL 163 <=200 mg/dL HDL CHOLESTEROL 57 40 - 60 mg/dL LDL CHOLESTEROL CALCULATED 85.6 mg/dL VLDL CHOLESTEROL 20.4 mg/dL CHOL HDL RATIO 2.9 ALL THYROID STIM HORMONE Collection Time: 10/17/23 8:18 AM Result Value Ref Range THYROID STIMULATING HORMONE 2.196 0.358 - 3.740 uIU/mL [facility] VITAMIN D 25 OH Collection Time: 10/17/23 8:18 AM Result Value Ref Range VITAMIN D 58.8 ng/mL ALL THYROXINE (T4) FREE Collection Time: 10/17/23 8:18 AM Result Value Ref Range FREE T4 1.23 0.76 - 1.46 ng/dL [facility] PTH, INTRAOPERATIVE Collection Time: 10/17/23 8:18 AM Result Value Ref Range PTH, INTACT 17 15 - 65 pg/mL Physical Exam Constitutional: General: She is not in acute distress. Appearance: Normal appearance. HENT: Head: Normocephalic. Eyes: General: No scleral icterus. Extraocular Movements: Extraocular movements intact. Conjunctiva/sclera: Conjunctivae normal. Neck: Vascular: No carotid bruit. Cardiovascular: Rate and Rhythm: Normal rate and regular rhythm. Heart sounds: No murmur heard. Pulmonary: Effort: Pulmonary effort is normal. No respiratory distress. Breath sounds: Normal breath sounds. No wheezing or rhonchi. Musculoskeletal: General: No swelling. Normal range of motion. Cervical back: Normal range of motion. Skin: General: Skin is warm and dry. Coloration: Skin is not jaundiced. Findings: No rash. Neurological: General: No focal deficit present. Mental Status: She is alert and oriented to person, place, and time. Motor: No weakness. Gait: Gait normal. Psychiatric: Mood and Affect: Mood normal. Behavior: Behavior normal. Thought Content: Thought content normal. Judgment: Judgment normal. Assessment/Plan : Problem List Items Addressed This Visit Mixed hyperlipidemia ([facility]) Overview Prescribed atorvastatin 10/2023: WH=691; HDL=57; VP=248; LDL=85; TC/HDL=2.9 Current Assessment & Plan Lipids look good/at goals -Reinforced importance of dietary modification, regular cardiovascular activity and compliance with any prescribed medication for group home management/control of lipids. High cholesterol (especially LDL) is associated with an elevated risk of cardiovascular disease. This includes coronary artery disease. stroke and peripheral vascular disease. High cholesterol has also been linked to diabetes and high blood pressure risks. By appropriately treating LDL, these risks can be reduced. Postoperative hypothyroidism ([facility]) Overview Prescribed levothyroxine 50 mcg 10/2023: TSH=2.196; FT4=1.23 Current Assessment & Plan TFTs therapeutic. She is clinically euthyroid. No dose change at this time Vitamin D deficiency, unspecified Overview Taking Vit d supplement (2000 international units daily) 10/2023: Vit D=58.8 Current Assessment & Plan Continue current dose Essential tremor Overview She was seen by Neurology ([facility]) 2021. She reports sx started ~2017. First noted in right hand and then both hands and feet. Tremors intermittent and fluctuate in intensity. She has tried amantidine (stopped due to constipation). Requip ( side effect ) and amitriptyline. At her follow up Neuro appt 07/2021, she reported stopping meds and since sx mild, she reported she preferred to not try another medication. She was advised she could F/U as needed. Hyperparathyroidism ([facility]) Overview 10/2023: PTH=17 Genitourinary syndrome of menopause Current Assessment & Plan Suspect her sx are due to postmenopausal changes. She can try OTC vaginal moisturizer. Would consider topical Estrogen if sx not adequately improved with OTC treatment Sleep pattern disturbance Overview 11/2023- she plans to try magnesium Class 1 obesity Overview BMI 30 Current Assessment & Plan -Obesity is a term that means you have a body mass index (BMI) of 30 or higher. Obesity increases your risk of many conditions. Of major concern is that your risk of heart disease is increased. Of particular concern is that a [place] Heart Study analysis concluded that, after other cardiovascular risk factors are controlled, obese individuals have double the risk of new onset heart failure compared with normal weight subjects The risks for hypertension, stroke, diabetes, some cancers (including colon, postmenopausal breast cancer, kidney and esophageal), gallbladder disease, osteoarthritis, gout and breathing problems, such as sleep apnea are increased. I recommend you work on increasing physical activity and diet modifications to achieve goal BMI (less than 30 and preferably less than 25) in order to reduce risk of obesity-related complications. Specifically advised that weight loss if going to start in the kitchen more so than at the gym . While not everyone who is obese will develop one of the above mentioned diseases, the RISK is increased. -Losing a small amount of weight can reduce your chances of developing heart disease or a stroke. Losing even more weight has been shown to lower the risk even more. Other Visit Diagnoses Medicare annual wellness visit, subsequent - Primary Patient here for annual Medicare Wellness visit with Megan Little NP. Demographics were updated. Self-assessment was completed. Past medical, family, and social history were updated. The medication list, including supplements being taken, was updated. A list of other current medical providers was established/updated. Time was spent discussing health maintenance issues, ordering proper testing, and a schedule was provided regarding recommended screening. We discussed safety issues and fall risk. Depression screening was completed and addressed. Fall screening was completed and addressed. Cognitive function was assessed by direct observation and assessment of ability to perform ADL's and IADL's was done. The current BMI was provided and will continue to be monitored at routine office visits as well. Major risk factors for chronic disease including family history were discussed and a list was provided with the care plan. ACP (advance care planning) Advanced directives (LW/POA) have been discussed with patient. She reports she has completed forms Right hip pain Handouts with stretches provided. Will get imaging as sx have not been improving with vp care management and exercised she has already been advised to do. Relevant Orders XR hip right 2 or 3 views Greater trochanteric bursitis of right hip Rash and nonspecific skin eruption If persists, will have her see DERM Relevant Medications clotrimazole-betamethasone (Lotrisone) cream The following health maintenance schedule was reviewed with the patient and provided in printed form in the after visit summary: Health Maintenance Topic Date Due Influenza Vaccine (1) 12/17/2023 Medicare Annual Wellness (AWV) 04/28/2024 Mammogram 06/26/2024 Colorectal Cancer Screening 06/28/2026 Pneumococcal Vaccine: 65+ Years Completed Immunization History Administered Date(s) Administered Influenza, High Dose Seasonal, Preservative Free 01/18/2017, 01/10/2020, 02/05/2021 Influenza, High-dose Seasonal, Quadrivalent, Preservative Free 01/24/2022 Influenza, Injectable, MDCK, preservative free 04/22/2019 Influenza, Seasonal, Quadrivalent, Adjuvanted 01/31/2023 Influenza, seasonal, injectable 02/11/2016 Influenza, seasonal, injectable, preservative free 02/05/2015 Influenza, seasonal, intradermal, preservative free 02/29/2012 Influenza, trivalent, adjuvanted 01/15/2018 Pfizer Purple Cap SARS-CoV-2 Vaccination 06/15/2020, 07/07/2020 Pneumococcal Conjugate PCV 13 08/05/2016 Pneumococcal Polysaccharide PPSV23 11/14/2019 Td (adult), 5 Lf tetanus toxoid, preservative free, adsorbed 06/20/2008 Zoster, Recombinant 11/27/2019, 02/22/2020 Orders Placed This Encounter Procedures XR hip right 2 or 3 views Standing Status: Future Standing Expiration Date: 12/07/2024 Order Specific Question: Reason for exam: Answer: persistent hip pain after injury ~1 month ago -Patient's chronic conditions have been reviewed in preparation for this appointment. Protocols reviewed and updated. A collaborative plan of care has been created for pt regarding specific health concerns. Any barriers to care have been identified and addressed. Any part of this document that has been added/copied from other documents has been reviewed for accuracy and updated as appropriate at the time of the patient encounter. -Follow up in about 6 months (around 06/09/2024) for Routine appt for monitoring and management of chronic conditions; sooner if any acute issues. Lisette Wooten DO Board Certified Voice Intercept Technician documented in this encounter [facility] Evaluation note No assessment inform ation available [facility] Work Phone: Evaluation note Diagnosis Right hip pain- Primary Pain in joint, pelvic region and thigh documented in this encounter [facility] HealthcareEvaluation note* Diagnosis Medicare annual wellness visit, subsequent- Primary ACP (advance care planning) Other specified counseling Mixed hyperlipidemia (CMS/HCC) Mixed hyperlipidemia Postoperative hypothyroidism (CMS/HCC) Postsurgical hypothyroidism Hyperparathyroidism (CMS/HCC) Hyperparathyroidism, unspecified Vitamin D deficiency, unspecified Adenomatous polyp of colon, unspecified part of colon Neck stiffness Torticollis, unspecified Class 1 obesity Essential tremor BMI 30.0-30.9,adult Mixed hyperlipidemia (CMS/HCC)- Primary Mixed hyperlipidemia Postoperative hypothyroidism (CMS/HCC) Postsurgical hypothyroidism Vitamin D deficiency, unspecified Hyperparathyroidism (CMS/HCC) Hyperparathyroidism, unspecified Class 1 obesity Medicare annual wellness visit, subsequent- Primary ACP (advance care planning) Other specified counseling Right hip pain Pain in joint, pelvic region and thigh Greater trochanteric bursitis of right hip Rash and nonspecific skin eruption Rash and other nonspecific skin eruption Mixed hyperlipidemia (CMS/HCC) Mixed hyperlipidemia Postoperative hypothyroidism (CMS/HCC) Postsurgical hypothyroidism Class 1 obesity Essential tremor Genitourinary syndrome of menopause Hyperparathyroidism (CMS/HCC) Hyperparathyroidism, unspecified Sleep pattern disturbance Vitamin D deficiency, unspecified BMI 30.0-30.9,adult Right hip pain- Primary Pain in joint, pelvic region and thigh Primary osteoarthritis of right hip documented in this encounter [facility] HealthcareEvaluation note* Diagnosis Medicare annual wellness visit, subsequent- Primary ACP (advance care planning) Other specified counseling Mixed hyperlipidemia (CMS/HCC) Mixed hyperlipidemia Postoperative hypothyroidism (CMS/HCC) Postsurgical hypothyroidism Hyperparathyroidism (CMS/HCC) Hyperparathyroidism, unspecified Vitamin D deficiency, unspecified Adenomatous polyp of colon, unspecified part of colon Neck stiffness Torticollis, unspecified Class 1 obesity Essential tremor BMI 30.0-30.9,adult Mixed hyperlipidemia (CMS/HCC)- Primary Mixed hyperlipidemia Postoperative hypothyroidism (CMS/HCC) Postsurgical hypothyroidism Vitamin D deficiency, unspecified Hyperparathyroidism (CMS/HCC) Hyperparathyroidism, unspecified Class 1 obesity Medicare annual wellness visit, subsequent- Primary ACP (advance care planning) Other specified counseling Right hip pain Pain in joint, pelvic region and thigh Greater trochanteric bursitis of right hip Rash and nonspecific skin eruption Rash and other nonspecific skin eruption Mixed hyperlipidemia (CMS/HCC) Mixed hyperlipidemia Postoperative hypothyroidism (CMS/HCC) Postsurgical hypothyroidism Class 1 obesity Essential tremor Genitourinary syndrome of menopause Hyperparathyroidism (CMS/HCC) Hyperparathyroidism, unspecified Sleep pattern disturbance Vitamin D deficiency, unspecified BMI 30.0-30.9,adult Right hip pain- Primary Pain in joint, pelvic region and thigh Primary osteoarthritis of right hip documented in this encounter [facility] HealthcareEvaluation note* Diagnosis Medicare annual wellness visit, subsequent- Primary ACP (advance care planning) Other specified counseling Mixed hyperlipidemia (CMS/HCC) Mixed hyperlipidemia Postoperative hypothyroidism (CMS/HCC) Postsurgical hypothyroidism Hyperparathyroidism (CMS/HCC) Hyperparathyroidism, unspecified Vitamin D deficiency, unspecified Adenomatous polyp of colon, unspecified part of colon Neck stiffness Torticollis, unspecified Class 1 obesity Essential tremor BMI 30.0-30.9,adult Mixed hyperlipidemia (CMS/HCC)- Primary Mixed hyperlipidemia Postoperative hypothyroidism (CMS/HCC) Postsurgical hypothyroidism Vitamin D deficiency, unspecified Hyperparathyroidism (CMS/HCC) Hyperparathyroidism, unspecified Class 1 obesity Medicare annual wellness visit, subsequent- Primary ACP (advance care planning) Other specified counseling Right hip pain Pain in joint, pelvic region and thigh Greater trochanteric bursitis of right hip Rash and nonspecific skin eruption Rash and other nonspecific skin eruption Mixed hyperlipidemia (CMS/HCC) Mixed hyperlipidemia Postoperative hypothyroidism (CMS/HCC) Postsurgical hypothyroidism Class 1 obesity Essential tremor Genitourinary syndrome of menopause Hyperparathyroidism (CMS/HCC) Hyperparathyroidism, unspecified Sleep pattern disturbance Vitamin D deficiency, unspecified BMI 30.0-30.9,adult Right hip pain- Primary Pain in joint, pelvic region and thigh Primary osteoarthritis of right hip documented in this encounter [facility] HealthcareEvaluation note* Diagnosis Medicare annual wellness visit, subsequent- Primary ACP (advance care planning) Other specified counseling Mixed hyperlipidemia (CMS/HCC) Mixed hyperlipidemia Postoperative hypothyroidism (CMS/HCC) Postsurgical hypothyroidism Hyperparathyroidism (CMS/HCC) Hyperparathyroidism, unspecified Vitamin D deficiency, unspecified Adenomatous polyp of colon, unspecified part of colon Neck stiffness Torticollis, unspecified Class 1 obesity Essential tremor BMI 30.0-30.9,adult Mixed hyperlipidemia (CMS/HCC)- Primary Mixed hyperlipidemia Postoperative hypothyroidism (CMS/HCC) Postsurgical hypothyroidism Vitamin D deficiency, unspecified Hyperparathyroidism (CMS/HCC) Hyperparathyroidism, unspecified Class 1 obesity Medicare annual wellness visit, subsequent- Primary ACP (advance care planning) Other specified counseling Right hip pain Pain in joint, pelvic region and thigh Greater trochanteric bursitis of right hip Rash and nonspecific skin eruption Rash and other nonspecific skin eruption Mixed hyperlipidemia (CMS/HCC) Mixed hyperlipidemia Postoperative hypothyroidism (CMS/HCC) Postsurgical hypothyroidism Class 1 obesity Essential tremor Genitourinary syndrome of menopause Hyperparathyroidism (CMS/HCC) Hyperparathyroidism, unspecified Sleep pattern disturbance Vitamin D deficiency, unspecified BMI 30.0-30.9,adult Right hip pain- Primary Pain in joint, pelvic region and thigh Primary osteoarthritis of right hip documented in this encounter [facility]* Diagnosis Medicare annual wellness visit, subsequent- Primary ACP (advance care planning) Other specified counseling Mixed hyperlipidemia (CMS/HCC) Mixed hyperlipidemia Postoperative hypothyroidism (CMS/HCC) Postsurgical hypothyroidism Hyperparathyroidism (CMS/HCC) Hyperparathyroidism, unspecified Vitamin D deficiency, unspecified Adenomatous polyp of colon, unspecified part of colon Neck stiffness Torticollis, unspecified Class 1 obesity Essential tremor BMI 30.0-30.9,adult Mixed hyperlipidemia (CMS/HCC)- Primary Mixed hyperlipidemia Postoperative hypothyroidism (CMS/HCC) Postsurgical hypothyroidism Vitamin D deficiency, unspecified Hyperparathyroidism (CMS/HCC) Hyperparathyroidism, unspecified Class 1 obesity Medicare annual wellness visit, subsequent- Primary ACP (advance care planning) Other specified counseling Right hip pain Pain in joint, pelvic region and thigh Greater trochanteric bursitis of right hip Rash and nonspecific skin eruption Rash and other nonspecific skin eruption Mixed hyperlipidemia (CMS/HCC) Mixed hyperlipidemia Postoperative hypothyroidism (CMS/HCC) Postsurgical hypothyroidism Class 1 obesity Essential tremor Genitourinary syndrome of menopause Hyperparathyroidism (CMS/HCC) Hyperparathyroidism, unspecified Sleep pattern disturbance Vitamin D deficiency, unspecified BMI 30.0-30.9,adult Right hip pain- Primary Pain in joint, pelvic region and thigh Primary osteoarthritis of right hip documented in this encounter [facility]* Diagnosis Medicare annual wellness visit, subsequent- Primary ACP (advance care planning) Other specified counseling Mixed hyperlipidemia (CMS/HCC) Mixed hyperlipidemia Postoperative hypothyroidism (CMS/HCC) Postsurgical hypothyroidism Hyperparathyroidism (CMS/HCC) Hyperparathyroidism, unspecified Vitamin D deficiency, unspecified Adenomatous polyp of colon, unspecified part of colon Neck stiffness Torticollis, unspecified Class 1 obesity Essential tremor BMI 30.0-30.9,adult Mixed hyperlipidemia (CMS/HCC)- Primary Mixed hyperlipidemia Postoperative hypothyroidism (CMS/HCC) Postsurgical hypothyroidism Vitamin D deficiency, unspecified Hyperparathyroidism (CMS/HCC) Hyperparathyroidism, unspecified Class 1 obesity Medicare annual wellness visit, subsequent- Primary ACP (advance care planning) Other specified counseling Right hip pain Pain in joint, pelvic region and thigh Greater trochanteric bursitis of right hip Rash and nonspecific skin eruption Rash and other nonspecific skin eruption Mixed hyperlipidemia (CMS/HCC) Mixed hyperlipidemia Postoperative hypothyroidism (CMS/HCC) Postsurgical hypothyroidism Class 1 obesity Essential tremor Genitourinary syndrome of menopause Hyperparathyroidism (CMS/HCC) Hyperparathyroidism, unspecified Sleep pattern disturbance Vitamin D deficiency, unspecified BMI 30.0-30.9,adult Primary osteoarthritis of right hip- Primary documented in this encounter [facility]* Diagnosis Medicare annual wellness visit, subsequent- Primary ACP (advance care planning) Other specified counseling Mixed hyperlipidemia (CMS/HCC) Mixed hyperlipidemia Postoperative hypothyroidism (CMS/HCC) Postsurgical hypothyroidism Hyperparathyroidism (CMS/HCC) Hyperparathyroidism, unspecified Vitamin D deficiency, unspecified Adenomatous polyp of colon, unspecified part of colon Neck stiffness Torticollis, unspecified Class 1 obesity Essential tremor BMI 30.0-30.9,adult Mixed hyperlipidemia (CMS/HCC)- Primary Mixed hyperlipidemia Postoperative hypothyroidism (CMS/HCC) Postsurgical hypothyroidism Vitamin D deficiency, unspecified Hyperparathyroidism (CMS/HCC) Hyperparathyroidism, unspecified Class 1 obesity Medicare annual wellness visit, subsequent- Primary ACP (advance care planning) Other specified counseling Right hip pain Pain in joint, pelvic region and thigh Greater trochanteric bursitis of right hip Rash and nonspecific skin eruption Rash and other nonspecific skin eruption Mixed hyperlipidemia (CMS/HCC) Mixed hyperlipidemia Postoperative hypothyroidism (CMS/HCC) Postsurgical hypothyroidism Class 1 obesity Essential tremor Genitourinary syndrome of menopause Hyperparathyroidism (CMS/HCC) Hyperparathyroidism, unspecified Sleep pattern disturbance Vitamin D deficiency, unspecified BMI 30.0-30.9,adult Right hip pain- Primary Pain in joint, pelvic region and thigh Primary osteoarthritis of right hip documented in this encounter [facility]* Diagnosis Medicare annual wellness visit, subsequent- Primary ACP (advance care planning) Other specified counseling Mixed hyperlipidemia (CMS/HCC) Mixed hyperlipidemia Postoperative hypothyroidism (CMS/HCC) Postsurgical hypothyroidism Hyperparathyroidism (CMS/HCC) Hyperparathyroidism, unspecified Vitamin D deficiency, unspecified Adenomatous polyp of colon, unspecified part of colon Neck stiffness Torticollis, unspecified Class 1 obesity Essential tremor BMI 30.0-30.9,adult Mixed hyperlipidemia (CMS/HCC)- Primary Mixed hyperlipidemia Postoperative hypothyroidism (CMS/HCC) Postsurgical hypothyroidism Vitamin D deficiency, unspecified Hyperparathyroidism (CMS/HCC) Hyperparathyroidism, unspecified Class 1 obesity Medicare annual wellness visit, subsequent- Primary ACP (advance care planning) Other specified counseling Right hip pain Pain in joint, pelvic region and thigh Greater trochanteric bursitis of right hip Rash and nonspecific skin eruption Rash and other nonspecific skin eruption Mixed hyperlipidemia (CMS/HCC) Mixed hyperlipidemia Postoperative hypothyroidism (CMS/HCC) Postsurgical hypothyroidism Class 1 obesity Essential tremor Genitourinary syndrome of menopause Hyperparathyroidism (CMS/HCC) Hyperparathyroidism, unspecified Sleep pattern disturbance Vitamin D deficiency, unspecified BMI 30.0-30.9,adult Right hip pain- Primary Pain in joint, pelvic region and thigh Primary osteoarthritis of right hip documented in this encounter [facility] HealthcareEvaluation note* Diagnosis Medicare annual wellness visit, subsequent- Primary ACP (advance care planning) Other specified counseling Right hip pain Pain in joint, pelvic region and thigh Greater trochanteric bursitis of right hip Rash and nonspecific skin eruption Rash and other nonspecific skin eruption Mixed hyperlipidemia (CMS/HCC) Mixed hyperlipidemia Postoperative hypothyroidism (CMS/HCC) Postsurgical hypothyroidism Class 1 obesity Essential tremor Genitourinary syndrome of menopause Hyperparathyroidism (CMS/HCC) Hyperparathyroidism, unspecified Sleep pattern disturbance Vitamin D deficiency, unspecified BMI 30.0-30.9,adult documented in this encounter [facility] HealthcareEvaluation note* Diagnosis Right hip pain- Primary Pain in joint, pelvic region and thigh [facility] Diagnosis Right hip pain- Primary Pain in joint, pelvic region and thigh Osteoarthritis of right hip, unspecified osteoarthritis type [facility] Diagnosis Osteoarthritis of right hip, unspecified osteoarthritis type- Primary [facility] Diagnosis Back pain, unspecified back location, unspecified back pain laterality, unspecified chronicity- Primary [facility] Diagnosis Lumbar radicular pain- Primary Thoracic or lumbosacral neuritis or radiculitis, unspecified Osteoarthritis of right hip, unspecified osteoarthritis type S/P cervical spinal fusion Arthrodesis status [facility] Diagnosis Medicare annual wellness visit, subsequent- Primary ACP (advance care planning) Other specified counseling Mixed hyperlipidemia (CMS/HCC) Mixed hyperlipidemia Postoperative hypothyroidism (CMS/HCC) Postsurgical hypothyroidism Hyperparathyroidism (CMS/HCC) Hyperparathyroidism, unspecified Vitamin D deficiency, unspecified Adenomatous polyp of colon, unspecified part of colon Neck stiffness Torticollis, unspecified Class 1 obesity Essential tremor BMI 30.0-30.9,adult Mixed hyperlipidemia (CMS/HCC)- Primary Mixed hyperlipidemia Postoperative hypothyroidism (CMS/HCC) Postsurgical hypothyroidism Vitamin D deficiency, unspecified Hyperparathyroidism (CMS/HCC) Hyperparathyroidism, unspecified Class 1 obesity Medicare annual wellness visit, subsequent- Primary ACP (advance care planning) Other specified counseling Right hip pain Pain in joint, pelvic region and thigh Greater trochanteric bursitis of right hip Rash and nonspecific skin eruption Rash and other nonspecific skin eruption Mixed hyperlipidemia (CMS/HCC) Mixed hyperlipidemia Postoperative hypothyroidism (CMS/HCC) Postsurgical hypothyroidism Class 1 obesity Essential tremor Genitourinary syndrome of menopause Hyperparathyroidism (CMS/HCC) Hyperparathyroidism, unspecified Sleep pattern disturbance Vitamin D deficiency, unspecified BMI 30.0-30.9,adult Mixed hyperlipidemia (CMS/HCC)- Primary Mixed hyperlipidemia Postoperative hypothyroidism (CMS/HCC) Postsurgical hypothyroidism Arthritis of right hip Vitamin D deficiency Encounter for screening mammogram for malignant neoplasm of breast Arthritis, lumbar spine Osteoporosis screening Special screening for osteoporosis Postmenopausal Asymptomatic postmenopausal status (age-related) (natural) documented in this encounter [facility] for referral (narrative)* Consultation (Routine) - Authorized Specialty Diagnoses / Procedures Referred By Donato nichole Referred To Contact Physical Therapy Diagnoses Right hip pain Procedures OR OFFICE/OUTPATIENT NEW [facility] MDM 60 MINUTES Pérez Luke DO [address] [facility] [place] [address] Sergey Bolden, PT [address] [address] Referral ID Status Reason Start Date Expiration Date Visits Requested Visits Authorized [id number] Authorized Consult and Treat 01/23/2024 07/21/2024 10 10 [facility] for visit Narrative* Consultation (Routine) - Authorized Specialty Diagnoses / Procedures Referred By Donato nichole Referred To Contact Physical Therapy Diagnoses Right hip pain Procedures OR OFFICE/OUTPATIENT NEW [facility] MDM 60 MINUTES Brown, Pérez A, DO [address] [place] [address] Phone: tel: fax: Sergey Bolden, PT [address] [address] Phone: tel: fax: Referral ID Status Reason Start Date Expiration Date Visits Requested Visits Authorized [id number] Authorized Consult and Treat 01/23/2024 07/21/2024 10 10 [facility] N[facility]ative* Consultation (Routine) - Authorized Specialty Diagnoses / Procedures Referred By Contac t Referred To Contact Physical Therapy Diagnoses Right hip pain Procedures OR OFFICE/OUTPATIENT NEW [facility] MDM 60 MINUTES LandonPérez Shahbaz, DO [address] [place] [address] Phone: tel: fax: Sergey Bolden, PT [address] [address] Phone: tel: fax: Referral ID Status Reason Start Date Expiration Date Visits Requested Visits Authorized [id number] Authorized Consult and Treat 01/23/2024 07/21/2024 30 30 [facility] Narrative* Consultation (Routine) - Closed Specialty Diagnoses / Procedures Referred By Contac t Referred To Contact Physical Therapy Diagnoses Right hip pain Procedures OR OFFICE/OUTPATIENT NEW [facility] MDM 60 MINUTES Pérez Luke, DO [address] [place] [address] Phone: tel: fax: Sergey Bolden, PT [address] [address] Phone: tel: fax: Referral ID Status Reason Start Date Expiration Date V isits Requested Visits Authorized [id number] Closed Consult and Treat 01/23/2024 07/21/2024 30 30 [facility] Summary Purpose Family History No Family History Records Found Relationship Condition Age at Onset Recorded Date/T radha father Myocardial infarction Unknown Not Specified Lymphoma Unknown sister Rheumatoid arthritis Unknown brother Rheumatoid arthritis Unknown brother Malignant neoplasm of urinary bladder Unk nown sister Hypothyroidism Unknown Advance Directives No Advanced Directives Records Found Advance Directive Response Recorded Date/ Time Advance Directives No March 9:13am Date Activated Date Inactivated Comments 12/08/2022 10:40 AM Date Activated Date Inactivated Comments 12/08/2022 10:40 AM Documents on File Type Date Recorded 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 Advance Directives and Livin g Will 05/10/2024 7:59 AM Documents on File Type Date Recorded 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 Advance Directives and Livin g Will 05/10/2024 7:59 AM Chief Complaint and Reason for Visit Chief Complaint Z12.31 Additional Source Comments INFORMATION SOURCE (unrecogn ized section and content) DATE CREATED AUTHOR 05/30/2022 [facility] DATE CREATED AUTHOR AUTHOR'S ORGANIZ ATION 06/30/2023 [facility] DATE CREATED AUTHOR AUTHOR'S ORGANIZ ATION 05/29/2024 [facility] DATE CREATED AUTHOR AUTHOR'S ORGANIZ ATION 05/30/2024 [facility] DATE CREATED AUTHOR AUTHOR'S ORGANIZ ATION 06/12/2024 [facility] EPIC Care Teams (unrecognized sec tion and content) Team Status: Active Member Role Status Dates Lisette Wooten DO Primary Care Provider Active Team Status: Inactive Member Role Status Dates Lisette Wooten DO Primary Care Provider, Attend ing Provider Active Route Clerk Relationship Specialty Start Date End Date Lisette Wooten DO [address] [place] [address] PCP - ACO Reach 09/08/22 Lisette Wooten DO [address] [place] [address] PCP - General Internal Medicine 08/23/22 Shanon Lobo LPN Licensed Practical Nurse Family Medicine 12/07/22 Nela Alfredo MD [address] [address] Consulting Physician Dermatology 12/07/22 Jacqueline Ramos MD [address] [place] [address] Consulting Physician Neurology 12/07/22 Jae Seymour MD [address] [place] [address] Referring Physician Ophthalmology 12/08/22 Blaise Heredia DO [address] [place] [address] Referring Physician Obstetrics and Gynecology 12/08/22 Magaly Douglass Ophthalmology 04/17/22 Route Clerk Relationship Specialty Start Date End Date Lisette Wooten DO [address] [place] [address] PCP - ACO Reach 09/08/22 Lisette Wooten DO [address] [place] [address] PCP - General Internal Medicine 08/23/22 Shanon Lobo LPN Licensed Practical Nurse Family Medicine 12/07/22 Nela Alfredo MD [address] [place] [address] Consulting Physician Dermatology 12/07/22 Jacqueline Ramos MD [address] [place] [address] Consulting Physician Neurology 12/07/22 Jae Seymour MD [address] [place] [address] Referring Physician Ophthalmology 12/08/22 Blaise Heredia, DO [address] [place] [address] Referring Physician Obstetrics and Gynecology 12/08/22 Magaly Douglass Ophthalmology 04/17/22 Route Clerk Relationship Specialty Start Date End Date Lisette Wooten, DO [address] [place] [address] PCP - ACO Reach 09/08/22 Lisette Wooten, DO [address] [place] [address] PCP - General Internal Medicine 08/23/22 Shanon Lobo LPN Licensed Practical Nurse Family Medicine 12/07/22 Nela Alfredo MD [address] [address] Consulting Physician Dermatology 12/07/22 Jacqueline Ramos MD [address] [place] [address] Consulting Physician Neurology 12/07/22 Jae Seymour MD [address] [place] [address] Referring Physician Ophthalmology 12/08/22 Blaise Heredia, DO [address] [place] [address] Referring Physician Obstetrics and Gynecology 12/08/22 Magaly Douglass Ophthalmology 04/17/22 Route Clerk Relationship Specialty Start Date End Date Lisette Wooten DO [address] [place] [address] PCP - ACO Reach 09/08/22 Lisette Wooten, DO [address] [place] [address] PCP - General Internal Medicine 08/23/22 Shanon Lobo LPN Licensed Practical Nurse Family Medicine 12/07/22 Nela Alfredo MD [address] [address] Consulting Physician Dermatology 12/07/22 Jacqueline Ramos MD [address] [place] [address] Consulting Physician Neurology 12/07/22 Jae Seymour MD [facility]note 2][address] [place] [address] Referring Physician Ophthalmology 12/08/22 Blaise Heredia, DO [address] [place] [address] Referring Physician Obstetrics and Gynecology 12/08/22 Magaly Douglass Ophthalmology 04/17/22 Route Clerk Relationship Specialty Start Date End Date Lisette Wooten, DO [address] [place] [address] PCP - ACO Reach 09/08/22 Lisette Wooten DO [address] [facility] [address] [place] [address] PCP - General Internal Medicine 08/23/22 Shanon Lobo LPN Licensed Practical Nurse Family Medicine 12/07/22 Nela Alfredo MD [address] [facility] 1 [place] [address] Consulting Physician Dermatology 12/07/22 Jacqueline Ramos MD [address] [place] [address] Consulting Physician Neurology 12/07/22 Jae Seymour MD [address] [place] [address] Referring Physician Ophthalmology 12/08/22 Blaise Heredia DO [address] [facility] [address] [place] [address] Referring Physician Obstetrics and Gynecology 12/08/22 Magaly Douglass Ophthalmology 04/17/22 Route Clerk Relationship Specialty Start Date End Date Lisette Wooten DO [address] [facility] [address] [place] [address] PCP - ACO Reach 09/08/22 Lisette Wooten DO [address] [facility] [address] [place] [address] PCP - General Internal Medicine 08/23/22 Shanon Lobo LPN Licensed Practical Nurse Family Medicine 12/07/22 Nela Alfredo MD [address] [address] Consulting Physician Dermatology 12/07/22 Jacqueline Ramos MD [address] [place] [address] Consulting Physician Neurology 12/07/22 Jae Seymour MD [address] [place] [address] Referring Physician Ophthalmology 12/08/22 Blaise Heredia DO [address] [place] [address] Referring Physician Obstetrics and Gynecology 12/08/22 Magaly Douglass Ophthalmology 04/17/22 Route Clerk Relationship Specialty Start Date End Date Lisette Wooten DO [address] [place] [address] PCP - ACO Reach 09/08/22 Lisette Wooten DO [address] [place] [address] PCP - General Internal Medicine 08/23/22 Shanon Lobo LPN Licensed Practical Nurse Family Medicine 12/07/22 Nela Alfredo MD [address] [address] Consulting Physician Dermatology 12/07/22 Jacqueline Ramos MD [address] [place] [address] Consulting Physician Neurology 12/07/22 Jae Seymour MD [address] [place] [address] Referring Physician Ophthalmology 12/08/22 Blaise Heredia, DO [address] [place] [address] Referring Physician Obstetrics and Gynecology 12/08/22 Magaly Douglass Ophthalmology 04/17/22 Route Clerk Relationship Specialty Start Date End Date Lisette Wooten, DO [address] [place] [address] PCP - ACO Reach 09/08/22 Lisette Wooten, DO [address] [place] [address] PCP - General Internal Medicine 08/23/22 Shanon Lobo LPN Licensed Practical Nurse Family Medicine 12/07/22 Nela Alfredo MD [address] [address] Consulting Physician Dermatology 12/07/22 Jacqueline Ramos MD [address] [place] [address] Consulting Physician Neurology 12/07/22 [place] [address] [place] [address] Referring Physician Ophthalmology 12/08/22 Blaise Heredia, DO [address] [facility] [address] [place] [address] Referring Physician Obstetrics and Gynecology 12/08/22 Magaly Douglass Ophthalmology 04/17/22 Route Clerk Relationship Specialty Start Date End Date Lisette Wooten DO [address] [place] [address] PCP - ACO Reach 09/08/22 Lisette Wooten, DO [address] [place] [address] PCP - General Internal Medicine 08/23/22 Shanon Lobo LPN Licensed Practical Nurse Family Medicine 12/07/22 Nela Alfredo MD [address] [address] Consulting Physician Dermatology 12/07/22 Jacqueline Ramos MD [address] [place] [address] Consulting Physician Neurology 12/07/22 Jae Seymour MD [address] [place] [address] Referring Physician Ophthalmology 12/08/22 Blaise Heredia, DO [address] [place] [address] Referring Physician Obstetrics and Gynecology 12/08/22 Magaly Douglass Ophthalmology 04/17/22 Route Clerk Relationship Specialty Start Date End Date Lisette Wooten DO [address] [place] [address] PCP - ACO Reach 09/08/22 Lisette Wooten DO [address] [place] [address] PCP - General Internal Medicine 08/23/22 Shanon Lobo LPN Licensed Practical Nurse Family Medicine 12/07/22 Nela Alfredo MD [address] [facility] 1 [place] [address] Consulting Physician Dermatology 12/07/22 Jacqueline Ramos MD [address] [place] [address] Consulting Physician Neurology 12/07/22 Jae Seymour MD [address] [place] [address] Referring Physician Ophthalmology 12/08/22 Blaise Heredia DO [address] [facility] [address] [place] [address] Referring Physician Obstetrics and Gynecology 12/08/22 Magaly Douglass Ophthalmology 04/17/22 Route Clerk Relationship Specialty Start Date End Date Lisette Wooten DO [address] [place] [address] PCP - ACO Reach 09/08/22 Lisette Wooten DO [address] [place] [address] PCP - General Internal Medicine 08/23/22 Shanon Lobo LPN Licensed Practical Nurse Family Medicine 12/07/22 Nela Alfredo MD [address] [address] Consulting Physician Dermatology 12/07/22 Jacqueline Ramos MD [address] [place] [address] Consulting Physician Neurology 12/07/22 Jae Seymour MD [address] [place] [address] Referring Physician Ophthalmology 12/08/22 Blaise Heredia, DO [address] [place] [address] Referring Physician Obstetrics and Gynecology 12/08/22 Magaly Douglass Ophthalmology 04/17/22 Route Clerk Relationship Specialty Start Date End Date Lisette Wooten DO [address] [place] [address] PCP - ACO Reach 09/08/22 Lisette Wooten DO [address] [address] [place] [address] PCP - General Internal Medicine 08/23/22 Shanon Lobo LPN Licensed Practical Nurse Family Medicine 12/07/22 Nela Alfredo MD [address] [address] Consulting Physician Dermatology 12/07/22 Jacqueline Ramos MD [address] [place] [address] Consulting Physician Neurology 12/07/22 Jae Seymour MD [address] [place] [address] Referring Physician Ophthalmology 12/08/22 Blaise Heredia, DO [address] [place] [address] Referring Physician Obstetrics and Gynecology 12/08/22 Magaly Douglass Ophthalmology 04/17/22 Route Clerk Relationship Specialty Start Date End Date Lisette Wooten, DO [address] [place] [address] PCP - ACO Reach 09/08/22 Lisette Wooten, DO [address] [place] [address] PCP - General Internal Medicine 08/23/22 Shanon Lobo LPN Licensed Practical Nurse Family Medicine 12/07/22 Nela Alfredo MD [address] [address] Consulting Physician Dermatology 12/07/22 Jacqueline Ramos MD [address] [place] [address] Consulting Physician Neurology 12/07/22 Jae Seymour MD [address] [place] [address] Referring Physician Ophthalmology 12/08/22 Blaise Heredia, DO [address] [place] [address] Referring Physician Obstetrics and Gynecology 12/08/22 Magaly Douglass Ophthalmology 04/17/22 Route Clerk Relationship Specialty Start Date End Date Lisette Wooten DO [address] [place] [address] PCP - ACO Reach 09/08/22 Lisette Wooten, DO [address] [place] [address] PCP - General Internal Medicine 08/23/22 Shanon Lobo LPN Licensed Practical Nurse Family Medicine 12/07/22 Nela Alfredo MD [address] [address] Consulting Physician Dermatology 12/07/22 Jacqueline Ramos MD [address] [place] [address] Consulting Physician Neurology 12/07/22 Jae Seymour MD [address] [place] [address] Referring Physician Ophthalmology 12/08/22 Blaise Heredia, DO [address] [place] [address] Referring Physician Obstetrics and Gynecology 12/08/22 Magaly Douglass Ophthalmology 04/17/22 Route Clerk Relationship Specialty Start Date End Date Lisette Wooten DO [address] [place] [address] PCP - ACO Reach 09/08/22 Lisette Wooten DO [address] [place] [address] PCP - General Internal Medicine 08/23/22 Shanon Lobo LPN Licensed Practical Nurse Family Medicine 12/07/22 Nela Alfredo MD [address] [facility] [address] [place] [address] Consulting Physician Dermatology 12/07/22 Jacqueline Ramos MD [address] [place] [address] Consulting Physician Neurology 12/07/22 Jae Seymour MD [address] [place] [address] Referring Physician Ophthalmology 12/08/22 Blaise Heredia DO [address] [place] [address] Referring Physician Obstetrics and Gynecology 12/08/22 Magaly Douglass Ophthalmology 04/17/22 Route Clerk Relationship Specialty Start Date End Date Lisette Wooten DO [address] [place] [address] PCP - ACO Reach 09/08/22 Lisette Wooten DO [address] [place] [address] PCP - General Internal Medicine 08/23/22 Shanon Lobo LPN Licensed Practical Nurse Family Medicine 12/07/22 Nela Alfredo MD [address] [facility] 1 [place] [address] Consulting Physician Dermatology 12/07/22 Jacqueline Ramos MD [address] [place] [address] Consulting Physician Neurology 12/07/22 Jae Seymour MD [address] [place] [address] Referring Physician Ophthalmology 12/08/22 Blaise Heredia, DO [address] [facility] [address] [place] [address] Referring Physician Obstetrics and Gynecology 12/08/22 Magaly Douglass Ophthalmology 04/17/22 Route Clerk Relationship Specialty Start Date End Date Lisette Wright DO [address] [facility] [address] [place] [address] PCP - General Internal Medicine 05/09/24 Route Clerk Relationship Specialty Start Date End Date Lisette Wright DO [address] [facility] [address] [place] [address] PCP - General Internal Medicine 05/09/24 Route Clerk Relationship Specialty Start Date End Date Lisette Wright, DO [address] [facility] [address] [place] [address] PCP - General Internal Medicine 05/09/24 Route Clerk Relationship Specialty Start Date End Date Lisette Wright, DO [address] [facility] [address] [place] [address] PCP - General Internal Medicine 05/09/24 Route Clerk Relationship Specialty Start Date End Date Lisette Wooten, DO [address] [facility] [address] [place] [address] PCP - ACO Reach 09/08/22 Lisette Wooten, DO [address] [facility] [address] [place] [address] PCP - General Internal Medicine 08/23/22 Shanon Lobo LPN Licensed Practical Nurse Family Medicine 12/07/22 Nela Alfredo MD [address] [address] Consulting Physician Dermatology 12/07/22 Jacqueline Ramos MD [address] [place] [address] Consulting Physician Neurology 12/07/22 Jae Seymour MD [address] [place] [address] Referring Physician Ophthalmology 12/08/22 Blaise Heredia, DO [address] [facility] [address] [place] [address] Referring Physician Obstetrics and Gynecology 12/08/22 Magaly Douglass Ophthalmology 04/17/22 Goals (unrecognized section and content) Goals may be documented in a n alternate section Reason for Visit (unrecogniz ed section and content) Reason Comments Pain Reason Comments Follow-up Reason Comments Medicare Annual Wellness Visit Subsequen t Routine 6 Mo Follow Up Reason Comments Pain Leg over extended in the shower in October and has done 8 sessions of PT. Was offered steroid injection but declined at the time. Walking is limited to 10 minutes. Reason Comments Pain Mri results Reason Comments Suboxone New Patient Intake Visit Lumbar pain -happened after fall this past October- was an avid walked and now can not walk without pain shooting down right leg Specialty Diagnoses / Procedures Referred By Donato nichole Referred To Contact Spine Surgery Diagnoses Osteoarthritis of right hip, unspecified osteoarthritis type Jerzy Hodges, [address] [place] [address] Phone: tel: fax: Austin Ibrahim MD [address] [place] [address] Phone: tel: fax: Referral ID Status Reason Start Date Expiration Date V isits Requested Visits Authorized [id number] Closed Specialty Services Required/So ent's Best Interest 05/13/2024 05/13/2025 1 1 Reason Comments Routine 6 Mo Follow Up FOR RECORDS PERTAINING TO PATIENTS WHO ARE [...] BE BASED ON THE PRIMARY CLINICAL RECORDS. [employer] provides no warranty or guarantee of the accuracy or completeness of information in this document.
== END 2024-06-19 10:44 | disposition home or self-care (01) ==
LOC: RAD 10:43
PROVIDERS: PCP Internal Medicine; Visit Provider Internal Medicine
DX: Z78.0 Asymptomatic menopausal state (principal); Z13.820 Encounter for screening for osteoporosis
CPT/HCPCS: 77080

== ENCOUNTER 2024-11-29 07:58 | Outpatient (OUT) | payer MEDICARE, OTHER, SELFPAY ==
--- OUTSIDE RECORDS SUMMARY | 2024-11-29 08:08 | XMS_ITS | Clinical Summary ---
Author Organization [facility] Address [address] [place] [address] Phone Care Team Providers Care Refrigeration Lead Name Role Phone Lisette Wooten DO Primary Care Provi kevin Social History Tobacco Use Types Packs/Day Years Used Date Smoking Tobacco: Never Assessed Comments Unknown Sex and Gender Information Value Date Recorded Sex Assigned at Not on file Legal Sex Female 10:32 AM EST Gender Identity Not on file Sexual Orientation Not on file Plan of Treatment Not on file Care Teams Refrigeration Lead Relationship Specialty Start Date End Date Lisette Wooten DO [address] [place] [address] PCP - General 06/13/11
--- OUTSIDE RECORDS SUMMARY | 2024-11-29 08:09 | XMS_ITS | Clinical Summary ---
Author Organization [facility] Address [address] [place] [address] Care Team Providers Care Flat Lock Operator Name Role Phone Lisette Wooten DO Unavailable [phone] Lisette Wooten DO Primary Care Provider Shanon Lobo LPN Unavailable [phone] Nela Alfredo MD Unavailable [phone] Jama Ramos MD Unavailable Jae Seymour MD Unavailable Blaise Heredia DO Unavailable [phone] Ana Silveira RN Unavailable [phone] Allergies Active Allergy Reactions Criticality Noted Date Comments Acetylcysteine 11/29/2022 Other Reaction(s): skin rash/when touches hands Amantadine 06/17/2021 Other Reaction(s): constipation Diclofenac 06/28/2021 Other Reaction(s): flushing/sore mouth/puffiness in face Other Reaction(s): Redness of Skin Medications Biotin w/ Vitamins C & E (Hair Skin & Nails Gummies) 1250-7.5-7.5 MCG-MG-UNT chewable tablet Chew 1 tablet 1 (one) time each day at the same time. Active calcium citrate 1040 MG tablet Take 2 tablets by mouth 3 (three) times a week. Active cholecalciferol (Vitamin D-3) 50 MCG (2000 UT) tablet Take 1 tablet by mouth 1 (one) time each day at the same time. Active ibuprofen 800 MG tablet Take 800 mg by mouth every 8 (eight) hours if needed for mild pain or moderate pain. Active psyllium (Metamucil) 48.57 % powder Take 1 Dose by mouth 1 (one) time each day at the same time. Active aspirin 81 MG EC tablet Take 81 mg by mouth in the morning. Active Multiple Vitamin (multivitamin) capsule Take 1 capsule by mouth in the morning. Active [place]-3 Fatty Acids (Fish Oil) 1200 MG capsule delayed-release Take by mouth Daily. Active UNABLE TO FIND Take 1 tablet by mouth Daily Balance of nature Active clotrimazole-betam ethasone (Lotrisone) creamIndications:R marie and nonspecific skin eruption Apply topically 2 (two) times a day 15 g 1 4 Active atorvastatin (Lipitor) 40 MG tabletIndications: Mixed hyperlipidemia TAKE 1 TABLET BY MOUTH EVERY DAY 90 tablet 3 4 Active meloxicam (Mobic) 15 MG tablet Take 15 mg by mouth Daily Rx'd by Dr. uAstin Ibrahim Active levothyroxine (Synthroid, Levoxyl) 50 MCG tabletIndications: Postoperative hypothyroidism TAKE 1 TABLET BY MOUTH EVERY DAY 90 tablet 4 5 Active Active Problems Problem Noted Date Diagnosed Date Postmenopausal 06/26/2024 Overview (06/26/2024): DEXA 06/19/2024: L1-L4=3.3; Dual femur= -0.7 and Right femur= -1.0 Arthritis, lumbar spine 06/11/2024 Overview (06/11/2024): X-ray lumbar spine 05/22/24 -Multilevel DDD most notably at L5-S1 with anterior osteophytes; Slight rotation on A-P view Arthritis of right hip 06/11/2024 Overview (06/11/2024): MRI 05/2024-Moderate degeneration of the right hip joint. There is subchondral cyst formation of the right acetabulum. There is degenerative bone marrow edema of the right acetabulum and femoral head. There is high-grade chondral loss of the anterior aspect of the acetabulum. ACP (advance care planning) 12/10/2023 Overview (12/10/2023): Advanced directives (LW/POA) have been discussed with patient. She reports she has completed forms Class 1 obesity 12/07/2022 Overview (06/11/2024): BMI 30 Assessment & Plan (06/11/2024 1:31 PM EST): -Obesity is a term that means you have a body mass index (BMI) of 30 or higher. Obesity increases your risk of many conditions. Of major concern is that your risk of heart disease is increased. Of particular concern is that a [place] Heart Study analysis concluded that, after other [...] shown to lower the risk even more. Assessment & Plan (12/10/2023 8:05 PM EDT): -Obesity is a term that means you have a body mass index (BMI) of 30 or higher. Obesity increases your risk of many conditions. Of major concern is that your risk of heart disease is increased. Of particular concern is that a [place] Heart Study analysis concluded that, after other [...] shown to lower the risk even more. Assessment & Plan (06/12/2023 10:38 PM EST): -Obesity is a term that means you have a body mass index (BMI) of 30 or higher. Obesity increases your risk of many conditions. Of major concern is that your risk of heart disease is increased. Of particular concern is that a [place] Heart Study analysis concluded that, after other [...] shown to lower the risk even more. Assessment & Plan (12/07/2022 10:24 PM EDT): -Obesity is a term that means you have a body mass index (BMI) of 30 or higher. Obesity increases your risk of many conditions. Of major concern is that your risk of heart disease is increased. Of particular concern is that a [place] Heart Study analysis concluded that, after other [...] shown to lower the risk even more. Adenomatous polyp of colon 11/29/2022 Overview (12/07/2022): No polyps seen in 2021 Arthritis of left knee 11/29/2022 Eczema 11/29/2022 Essential tremor 11/29/2022 Overview (12/10/2023): She was seen by Neurology ([facility]) 2021. She reports sx started ~2016. First noted in right hand and then [...] was advised she could F/U as needed. Genitourinary syndrome of menopause 11/29/2022 Assessment & Plan (12/10/2023 8:06 PM EDT): Suspect her sx are due to postmenopausal changes. She can try OTC vaginal moisturizer. Would consider topical Estrogen if sx not adequately improved with OTC treatment Postoperative hypothyroidism 11/29/2022 Overview (12/10/2023): Prescribed levothyroxine 50 mcg 10/2023: TSH=2.196; FT4=1.23 Assessment & Plan (06/11/2024 1:28 PM EST): At this time, she is clinically and biochemically euthyroid. We will continue current dose of levothyroxine and continue to monitor TFTs. Assessment & Plan (12/10/2023 8:04 PM EDT): TFTs therapeutic. She is clinically euthyroid. No dose change at this time Assessment & Plan (06/12/2023 10:39 PM EST): -At this time, patient is clinically euthyroid. We will continue current dose of levothyroxine and continue to monitor TFTs. Assessment & Plan (12/07/2022 10:19 PM EDT): -Hypothyroidism is a very manageable condition. Most individuals will need to take medication for the rest of their lives (although sometimes in mild cases, medication may be able to be discontinued.) It is important to take medication as prescribed and completed testing with recommended. At this time, patient is clinically euthyroid. We will continue current dose of Synthroid and continue to monitor TFTs. Sleep pattern disturbance 11/29/2022 Overview (12/10/2023): 11/2023- she plans to try magnesium Mixed hyperlipidemia 10/13/2022 Overview (12/10/2023): Prescribed atorvastatin 10/2023: PB=942; HDL=57; OC=547; LDL=85; TC/HDL=2.9 Assessment & Plan (06/11/2024 1:27 PM EST): -Lipids have been good. She will be due for recheck for her next appt. -Since high cholesterol (especially LDL) is associated with an elevated risk of cardiovascular disease, which includes coronary artery disease, stroke and peripheral vascular disease, and has also been linked to diabetes and high blood pressure risks, by appropriately treating LDL, these risks can be reduced. Assessment & Plan (12/10/2023 8:03 PM EDT): Lipids look good/at goals -Reinforced importance of dietary modification, regular cardiovascular activity and compliance with any prescribed medication for fdc management/control of lipids. High cholesterol (especially LDL) is associated with an elevated risk of cardiovascular disease. This includes coronary artery disease. stroke and peripheral vascular disease. High cholesterol has also been linked to diabetes and high blood pressure risks. By appropriately treating LDL, these risks can be reduced. Assessment & Plan (06/12/2023 10:37 PM EST): -Reinforced importance of dietary modification, regular cardiovascular activity and compliance with any prescribed medication for fdc management/control of lipids. High cholesterol (especially LDL) is associated with an elevated risk of cardiovascular disease. This includes coronary artery disease. stroke and peripheral vascular disease. High cholesterol has also been linked to diabetes and high blood pressure risks. By appropriately treating LDL, these risks can be reduced. Assessment & Plan (12/07/2022 10:19 PM EDT): -Reinforced importance of dietary modification, regular cardiovascular activity and compliance with any prescribed medication for fdc management/control of lipids. High cholesterol (especially LDL) is associated with an elevated risk of cardiovascular disease. This includes coronary artery disease. stroke and peripheral vascular disease. High cholesterol has also been linked to diabetes and high blood pressure risks. By appropriately treating LDL, these risks can be reduced. Vitamin D deficiency 10/13/2022 Overview (12/10/2023): Taking Vit d supplement (2000 international units daily) 10/2023: Vit D=58.8 Assessment & Plan (12/10/2023 8:08 PM EDT): Continue current dose Assessment & Plan (12/07/2022 10:22 PM EDT): -Vitamin D deficiency can lead to osteoporosis. There is also some research that suggests Vit D deficiency could also be linked to other conditions, like diabetes, high blood pressure, asthma, Alzheimer''s, depression and autoimmune diseases (although no definitive causal relationship can be proven at this time). -Foods that are rich in Vitamin D naturally include: cod liver oil; fatty fish , like salmon or tuna; cheese and egg yolks. You can also find foods fortified with Vitamin D, like milk, orange juice and yogurt. 10-15 minutes of your extremities exposed to sunlight, prior to applying sunscreen, can improve your Vitamin D levels as well. Hyperparathyroidism 06/05/2008 Overview (12/10/2023): 10/2023: PTH=17 Resolved Problems Problem Noted Date Diagnosed Date Resolved Date Tremor 11/29/2022 02/05/2023 Encounters Date Type Department Care Team Description 11/13/2024 Patient Outreach [facility] [employer] [address] [place] [address] Ana Silveira RN 11/07/2024 Telephone [facility] [address] [place] [address] Lisette Wooten, [place] [facility] order 09/25/2024 Refill [facility] [address] [place] [address] Lisette Wooten, Postoperative hypothyroidism from Last 3 Months Immunizations Immunization Administration Dates Next Due Influenza, High Dose Seasona l, Preservative Free 02/05/2021,01/10/2020,01/18/2017 Influenza, High-dose Seasona l, Quadrivalent, Preservative Free 01/24/2022 Influenza, Injectable, MDCK, preservative free 04/22/2019 Influenza, Seasonal, Quadriv alent, Adjuvanted 01/31/2023 Influenza, seasonal, injectable 01/25/2024,02/10 Influenza, seasonal, injecta ble, preservative free 02/05/2015 Influenza, seasonal, intrade rmal, preservative free 02/29/2012 Influenza, trivalent, adjuvanted 01/15/2018 Pneumococcal Conjugate PCV 13 08/05/2016 Pneumococcal Polysaccharide PPSV23 11/14/2019 Td (adult), 5 Lf tetanus tox oid, preservative free, adsorbed 06/20/2008 Zoster, Recombinant 02/22/2020,11/27/2019 Family History Medical History Relation Name Comments Heart disease Father Ovarian cancer Maternal Grandmother Lymphoma Mother Lymphoma Mother's Sister Bilateral breast cancer Sibling Hyperthyroidism Sibling Hypothyroidism Sibling Mental illness Sibling Rheum arthritis Sibling dardners disease Sibling Relation Name Status Comments Brother 4 Father Maternal Grandmother Mother Mother's Sister Sibling Sister 3 Social History Tobacco Use Types Packs/Day Years Used Date Smoking Tobacco: Never Smokeless Tobacco: Never Tobacco Cessation:Counseling Given: No Alcohol Use Standard Drinks/Week Comments Never 0 (1 standard drink = 0.6 oz pure alcohol) caffeine: coffee 2-3 cups a day AUDIT-C Answer Date Recorded Q1: How often do you have a drink containing alcohol? Never 06/09/2023 Q2: How many drinks containi ng alcohol do you have on a typical day when you are drinking? Patient does not drink Q3: How often do you have si x or more drinks on one occasion? Never 06/09/2023 PHQ-2 Answer Date Recorded Patient Health Questionnaire-2 Score 0 12/08/2023 Comments No Sex and Gender Information Value Date Recorded Sex Assigned at Not on file Legal Sex Female 6:57 PM EDT Gender Identity Not on file Sexual Orientation Not on file Last Filed Vital Signs Vital Sign Reading Time Taken Comments Blood Pressure 102/50 06/11/2024 9:09 AM EST Pulse 78 06/11/2024 9:09 AM EST Temperature 36.3 C (97.4 F) 03/05/2024 10:49 AM EST Respiratory Rate - - Oxygen Saturation 97% 06/11/2024 9:09 AM EST Inhaled Oxygen Concentration - - Weight 83.9 kg (185 lb) 06/11/2024 9:09 AM EST Height 165.1 cm (5' 5 ) 03/05/2024 10:49 AM EST Body Mass Index 30.79 03/05/2024 10:49 AM EST Plan of Treatment Upcoming Encounters Date Type Department Care Team (Late st Contact Info) Description 12/10/2024 9:00 AM EDT Office Visit [facility] [address] [place] [phone] Lisette Wooten, DO [address] [place] [address] 04/28/2025 11:00 AM EST Office Visit [facility] [address] [place] [phone] Blaise Heredia DO [address] [place] [address] Health Maintenance Due Date Last Done Comments CT Colonography 1950 FIT-DNA 1950 FIT 1950 FOBT 1950 Sigmoidoscopy 1950 Medicare Annual Wellness (AWV) 12/07/2024 0 12/08/2023, 04/28/2023, 12/01/2021 Influenza Vaccine (#1) 2024 , 01/31/2023, 01/24/2022, Additional history exists Colonoscopy 06/28/2026 06/28/2021, 06/15, 06/16/2016, Additional history exists Colorectal Cancer Screening 06/28/2026 Pneumococcal Vaccine: 65+ Years Completed 0, 08/05/2016 Mammogram Discontinued 07/03/2024, 06/15, 06/24/2022, Additional history exists Procedures Procedure Name Priority Date/Time Associated Diagnosis Comments BI MAMMOGRAM SCREENING TOMOSYNTHESIS BILATERAL Routine 07/03/2024 1:05 PM EDT Encounter for screening mammogram for malignant neoplasm of breast COLONOSCOPY Routine 06/28/2021 12:00 PM EDT from Last 3 Months or Most Recently Relevant to Health Maintenance Results * Bilateral screening mammogram with tomosynthesis (07/03/2024 1:05 PM EDT) Anatomical Region Laterality Modality Breast Bilateral Mammography 07/03/2024 1:05 PM EDT Impressions 07/03/2024 1:10 PM EDT NO MAMMOGRAPHIC EVIDENCE OF MALIGNANCY. ROUTINE FOLLOW-UP IS RECOMMENDED IN ONE YEAR. RESULT CODE: 2 Benign Findings(s) DENSITY CODE: 2 (approximately 25-50% glandular) FOLLOW UP: 1YR The false-negative rate of mammography is approximately 10-percent. Management of a palpable abnormality must be based on clinical grounds. Patient was entered into a reminder system with a target due date for the next mammogram. Impression dictated by: Itzel Clarke M.D.07/03/2024 1:07 PM Dictation Location: [facility] Dictated By: Itzel Clarke MD 07/03/24 1305 Signed By: <Electronically signed by MD Itzel Clarke in OV> 07/03/24 1307 Narrative 07/03/2024 1:10 PM EDT [facility] [address] [place], [place] [id number] Mammography Report Signed Patient: Xiomara Blanco MR#: [id number] : 1950 Acct:[id number] Age/Sex: 74 / F Adm Date: 07/03/24 Loc: [place] Room: Type: [facility] Attending Dr: Lisette Wooten DO Ordering Provider: Lisette Wooten DO Date of Service: 07/03/24 Procedure(s): MM screening mammo BI w/CAD Accession Number(s): ([id number]) MM/MM screening mammo BI w/CAD: screening Copies to: Lisette Wooten DO CLINICAL DATA: Screening for malignancy. BILATERAL SCREENING MAMMOGRAMS - FULL FIELD DIGITAL WITH TOMOSYNTHESIS AND CAD Tomosynthesis craniocaudal and mediolateral oblique views of both breasts were obtained using low- dose digital technique. Comparison is made to prior studies from June 12, 2020 through June 27, 2023. This examination was reviewed with the aid of CAD. There are scattered fibroglandular densities. Benign and vascular calculations are present. There are no developing masses, typically malignant calcifications or architectural distortion. There has been no significant interval change. MM/MM screening mammo BI w/CAD Procedure Note Radiology, RadiologistMD - 07/03/2024 [facility] [address] [address] Mammography Report Signed Patient: Xiomara Blanco MMR#: [id number] : 1950Acct:[id number] Age/Sex: 74 / FAdm Date: 07/03/24 Loc: [place] Room:Type: [facility] Attending Dr: Lisette Wooten DO Ordering Provider: Lisette Wooten DO Date of Service: 07/03/24 Procedure(s): MM screening mammo BI w/CAD Accession Number(s): ([id number]) MM/MM screening mammo BI w/CAD:screening Copies to: Lisette Wooten DO CLINICAL DATA: Screening for malignancy. BILATERAL SCREENING MAMMOGRAMS - FULL FIELD DIGITAL WITH TOMOSYNTHESIS ANDCAD Tomosynthesis craniocaudal and mediolateral oblique views of both breastswere obtained using low- dose digital technique. Comparison is made to prior studies from 2020 through June 27, 2023. This examination was reviewed with the aid of CAD. There are scattered fibroglandular densities. Benign and vascularcalculations are present. There are no developing masses, typically malignant calcifications orarchitectural distortion. There has been no significant interval change. MM/MM screening mammo BI w/CAD IMPRESSION: NO MAMMOGRAPHIC EVIDENCE OF MALIGNANCY. ROUTINE FOLLOW-UP IS RECOMMENDED IN ONE YEAR. RESULT CODE: 2 Benign Findings(s) DENSITY CODE: 2 (approximately 25-50% glandular) FOLLOW UP: 1YR The false-negative rate of mammography is approximately 10-percent. Management of a palpable abnormality must be based on clinical grounds. Patient was entered into a reminder system with a target due date for thenext mammogram. Impression dictated by: Itzel Clarke M.D.07/03/2024 1:07 PM Dictation Location: [facility] Dictated By: Itzel Clarke MD 07/03/24 1305 Signed By: <Electronically signed by MD Itzel Clarke in OV> 07/03/24 1307 us Lisette Wooten DO IMG BI PROCEDURES Final Result * Colonoscopy (06/28/2021 12:00 PM EDT) Anatomical Region Laterality Modality Endoscopy 06/28/2021 12:0 0 PM EDT Narrative 06/28/2021 12:00 PM EDT PERFORMED AT [facility] LOCATION:[id number] Diverticulosis noted Procedure Note CONVERSION, GENERIC - 08/31/2022 PERFORMED AT [facility] LOCATION:[id number] Diverticulosis noted Lisette Wooten DO ENDOSCOPY PROCEDURE ORD ERABLES Final Result from Last 3 Months or Most Recently Relevant to Health Maintenance Insurance MEDICARE [employer] Advance Directives * Full Code (Latest Code Status on File) Date Activated Date Inactivated Comments 12/08/2022 10:40 AM Care Teams Flat Lock Operator Relationship Specialty Start Date End Date Lisette Wooten DO [address] [place] [address] PCP - ACO Reach 09/08/22 Lisette Wooten DO [address] [place] [address] PCP - General Internal Medicine 08/23/22 Shanon Lobo, EM [address] [place] [address] Licensed Practical Nurse Family Medicine 12/07/22 Nela Alfredo MD [address] [address] Consulting Physician Dermatology 12/07/22 Jama Ramos MD [address] [address] Consulting Physician Neurology 12/07/22 Jae Seymour MD [address] [place] [address] Referring Physician Ophthalmology 12/08/22 Blaise Heredia DO [address] [place] [address] Referring Physician Obstetrics and Gynecology 12/08/22 Ana Silveira, LINSEY [address] [place] [address] Registered Nurse Family Medicine 11/13/24 Magaly Douglass Ophthalmology 04/17/22
--- OUTSIDE RECORDS SUMMARY | 2024-11-29 08:09 | XMS_ITS | Encounter Summary ---
Author Organization [facility] Address [address] [place] [address] Care Team Providers Care Tire Finisher Name Role Phone Lisette Wooten DO Unavailable [phone] Lisette Wooten DO Primary Care Provider Shanon Lobo LPN Unavailable [phone] Nela Alfredo MD Unavailable [phone] Jama Ramos MD Unavailable Jae Seymour MD Unavailable Blaise Heredia DO Unavailable [phone] Ana Silveira RN Unavailable [phone] Encounter Details Date Type Department Care Team (Late st Contact Info) Description 06/20/2024 Orders Only [facility] [place] [facility] [address] [place] [address] Unallocated, [facility] Provider, [address] [place], [place] [id number] Social History Tobacco Use Types Packs/Day Years Used Date Smoking Tobacco: Never Smokeless Tobacco: Never Alcohol Use Standard Drinks/Week Comments Never 0 [...] on file Sexual Orientation Not on file documented as of this encounter Plan of Treatment Upcoming Encounters Date Type Department Care Team (Late st Contact Info) Description 12/10/2024 9:00 AM EDT Office Visit [facility] [address] [place] [address] Lisette Wooten, [address] [place] [address] 04/28/2025 11:00 AM EST Office Visit [facility] [address] [place] [address] Blaise Heredia DO [address] [place] [address] documented as of this encounter Procedures Procedure Name Priority Date/Time Associated Diagnosis Comments DEXA BONE DENSITY Routine 06/19/2024 3:5 0 PM EST documented in this encounter Results * DEXA bone density (06/19/2024 3:50 PM EST) Anatomical Region Laterality Modality Body Radiographic Paula ging us [facility] Provider Unallocated MD COOPER DXA PROCEDURES Final Result documented in this encounter Visit Diagnoses Not on filedocumented in this encounter Care Teams Tire Finisher Relationship Specialty Start Date End Date Lisette Wooten DO [address] [place] [address] PCP - ACO Reach 09/08/22 Lisette Wooten, DO [address] [place] [address] PCP - General Internal Medicine 08/23/22 Shanon Lobo LPN [address] [place] [address] Licensed Practical Nurse Family Medicine 12/07/22 Nela Alfredo MD [address] [address] Consulting Physician Dermatology 12/07/22 Jama Ramos MD [address] [address] Consulting Physician Neurology 12/07/22 Jae Seymour MD [address] [place] [address] Referring Physician Ophthalmology 12/08/22 Blaise Heredia, DO [address] [place] [address] Referring Physician Obstetrics and Gynecology 12/08/22 Ana Silveira, LINSEY [address] [place] [address] Registered Nurse Family Medicine 11/13/24 Magaly Douglass Ophthalmology 04/17/22 documented as of this encounter
--- OUTSIDE RECORDS SUMMARY | 2024-11-29 08:09 | XMS_ITS ---
Author Organization [facility] Address [address] [place] [address] Care Team Providers Care Retail Tire Sales Manager Name Role Phone Lisette Wooten DO Unavailable [phone] Lisette Wooten DO Primary Care Provider Shanon Lobo LPN Unavailable [phone] Nela Alfredo MD Unavailable [phone] Jama Ramos MD Unavailable [phone] Jae Seymour MD Unavailable Blaise Heredia DO Unavailable [phone] Ana Silveira RN Unavailable [phone] Chronic Care Management (CCM) Status:Enrolled (Active) Start date:11/13/2024 Enrollment date:11/13/2024 Enrollment reason:Identified using hospital discharge data Overview Please assess for Care Management needs. <November 13, 2024, 14:05 - Ana Silveira RN> Patient gives verbal consent to be enrolled in CCM program and understands that there could be a bill for this service. Case Team Name Relationship Phone Ana Silveira RN(Responsible Staff) [facility] [phone] Continued Care and Services Coordination
--- OUTSIDE RECORDS SUMMARY | 2024-11-29 08:09 | XMS_ITS | CCD ---
Author Organization 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 Name Role Phone LISETTE WRIGHT Primary Care Unavailable BRANDON BETANCOURT Admitting Unavailable BRANDON BETANCOURT Attending Unavailable ANTHONY, DR JACQUELINE Velasquez Consulting Unavailable BRANDON BETANCOURT Consulting Unavailable DR LISETTE WRIGHT Admitting Amy MAYORGA, DR LISETTE Wilson Attending LISETTE Santana Primary Care Unavailable DIVINA MAYORGA, DR LISETTE Wilson Consulting DO Lisette Olmedo Primary Care Provider [phone] DO Lisette Wooten Attending Provider Lisette Wooten DO Unavailable Lisette Wooten DO Primary Care Provider Shanon Lobo LPN Unavailable Nela Alfredo MD Unavailable Jacqueline Ramos MD Unavailable [phone] Jae Seymour MD Unavailable [phone] Blaise Heredia DO Unavailable Unavailable Primary Care Provider Unavailabl e Lisette Wright DO Primary Care Provider LISETTE WOOTEN Attending Unavailab LISETTE Palomino Attending Unavailab LISETTE Palomino Referring Unavailab PÉREZ Lora Referring Unavailable PÉREZ NAVARRETE Attending Unavailable LISETTE WOOTEN Referring Unavailab PÉREZ Lora Referring Unavailable BLACKSTON, SERGEY T Attending Unavailable PÉREZ NAVARRETE A Referring Unavailable BLACKSJORGE, SERGEY T Attending Unavailable PÉREZ NAVARRETE A Referring Unavailable BLACKSJORGE, SERGEY T Attending Unavailable PÉREZ NAVARRETE A Referring Unavailable BLACKSJORGE, SERGEY T Attending Unavailable PÉREZ NAVARRETE A Referring Unavailable BLACKSTON, SERGEY T Attending Unavailable PÉREZ NAVARRETE A Referring Unavailable BLACKSTON, SERGEY T Attending Unavailable PÉREZ NAVARRETE A Referring Unavailable BLACKSTON, SERGEY T Attending Unavailable PÉREZ NAVARRETE A Referring Unavailable BLACKSTON, SERGEY T Attending Unavailable PÉREZ NAVARRETE A Referring Unavailable PÉREZ NAVARRETE A Attending Unavailable Lisette Wooten DO Primary Care Provider Lisette Wooten DO Attending Provider Lisette Wooten Attending Unavailable Lisette Wooten Primary Care Unavailable Lisette Wooten Admitting Unavailable LISETTE WRIGHT Primary Care Unavailab LISA Iqbal Referring Unavailable LISA RAMON Attending Unavailable JERZY HODGES Attending Unavailabl GAIL KevinRA D Primary Care Unavailab JERZY Berry Referring Unavailabl arik MURCIA GAIL MAYORGARA D Primary Care Unavailab JERZY Berry Referring Unavailabl JERZY Kohler Attending Unavailabl e MURCIA GAIL MAYORGARA D Primary Care Unavailab le CLARICE ROBBINS Referring Unavailab CLARICE Mckeon Attending Unavailab le MURCIA GAIL MAYORGARA D Primary Care Unavailab JERZY Berry Attending Unavailabl e MURCIA MUKESH LISETTE D Primary Care Unavailab JERZY Berry Attending Unavailabl JERZY Kohler Attending Unavailabl e MURCIA GAIL MAYORGARA D Referring Unavailab le MURCIA MUKESH LISETTE D Primary Care Unavailab le MURCIA MUKESH, LISETTE D Primary Care Unavailab le CLARICE ROBBINS ACUS Attending Unavailab le MURCIA MUKESH LISETTE D Primary Care Unavailab le CLARICE ROBBINS ACUS Attending Unavailab JERZY Berry Referring Unavailabl JERZY Kohler Referring Unavailabl JERZY Kohler Attending UnavailLISETTE Cristina Primary Care Unavailab domingo Lobo ENTERTAINMENT CENTRE MANAGER, Shanon Unavailable [phone] Jacqueline Ramos MD Unavailable Allergies Allergy Classification Reported Allergen(s) Allergy Type Date of Onset Reaction(s) Facility (1 source) Acetylcysteine Drug Allergy 2 [facility] Rep[facility] (6 sources) Diclofenac; Translations: [DICLOFENAC] Drug Allergy 1 Redness of Skin [facility] Rep[facility] (20 sources) Acetylcysteine; Translations: [acetylcysteine] Drug Allergy 2 Rash [facility] (20 sources) Amantadine; Translations: [AMANTADINE] Drug Allergy 2 Other (See Comments) [facility] Healthcare (20 sources) Diclofenac Drug Allergy 1 Other (See Comments) [facility] (1 source) Diclofenac Drug Allergy 2 [facility] Repository Medications Current Medications Medication Drug Class(es) Dates Sig (Normalized) Sig (Original) aspirin 81 mg delayed release oral tablet (20 sources) Platelet Aggregation Inhibitor, Nonsteroidal Anti-inflammatory Drug Start: 06-28-2021 take 1 tablet by mouth once daily Aspirin 81 mg Tablet,Delayed Release (Dr/Ec) Active 81 MG PO Daily June 28, 2021 12:00am atorvastatin 40 mg oral tablet (20 sources) HMG-CoA Reductase Inhibitor Start: 06-28-2021 End: 03-07-2024 take 1 tablet by mouth once daily atorvastatin (Lipitor) 40 MG tablet Indications: Mixed hyperlipidemia TAKE 1 TABLET BY MOUTH EVERY DAY 90 tablet 3 03/07/2024 Active betamethasone 0.5 mg/ml / clotrimazole 10 mg/ml topical cream (20 sources) Azole Antifungal, Corticosteroid Start: 12-08-2023 clotrimazole-betame thasone (Lotrisone) cream Indications: Rash and nonspecific skin eruption Apply topically 2 (two) times a day 15 g 1 12/08/2023 Active biotin 5 mg disintegrating oral tablet (2 sources) Start: 06-28-2021 take 1 tablet by mouth once daily Biotin 5,000 mcg Tablet,Disintegrati ng Active 5000 MCG PO Daily June 28, 2021 12:00am Biotin w/ Vitamins C & E (Hair Skin & Nails Gummies) 1250-7.5-7.5 MCG-MG-UNT chewable tablet (20 sources) Biotin w/ Vitami ns C & E (Hair Skin & Nails Gummies) 1250-7.5-7.5 MCG-MG-UNT chewable tablet Chew 1 tablet 1 (one) time each day at the same time. Active Calcium (2 sources) Phosphate Binder, Calcium Start: 06-28-2021 take 1 capsule by mouth once daily Calcium 100 mg Capsule Active 100 MG PO Daily June 28, 2021 12:00am Start: 06-28-2021 take 100 mg by mouth once liyah y Calcium Active 100 MG PO Daily June 27, 2021 11:00pm calcium carbonate 1500 mg / cholecalciferol 0.01 mg oral capsule (10 sources) Vitamin D Start: 06-28-2021 Calcium Carbon ate-Vitamin D3 600 mg-10 mcg (400 unit) Capsule Active 1 CAP PO As Directed June 28, 2021 12:00am take 1 tablet by clayton th twice [...] mg / cholecalciferol 200 unt oral tablet (8 sources) Vitamin D take 1 tablet by mouth twice daily calcium citrate-vitamin D (CITRACAL+D) 315 mg-5 mcg (200 unit) per tablet Take 1 (one) tablet by mouth 2 (two) times a day . Active cetirizine hydrochloride 10 mg oral tablet (8 sources) Histamine-1 Receptor Antagonist take 1 tablet by mouth once daily cetirizine (ZYRTEC) 10 MG tablet Take 1 (one) tablet (10 mg total) by mouth daily . Active cholecalciferol 0.05 mg oral tablet (20 sources) Vitamin D Start: take 1 tablet by mouth once daily Cholecalciferol (Vitamin D3) (Vitamin D3) 50 mcg (2,000 unit) Tablet Active 50 MCG PO Daily June 28, 2021 12:00am ibuprofen 800 mg oral tablet (20 sources) Nonsteroidal Anti-inflammatory Drug take 1 tablet by mouth every eight hours as needed for pain and pain ibuprofen 800 MG tablet Take 800 mg by mouth every 8 (eight) hours if needed for mild pain or moderate pain. Active ketoconazole 20 mg/ml topical cream (2 sources) Azole Antifungal Start: Ketoconazole 2 % cream Active 1 APPLIC TOPICAL Twice daily June 28, 2021 12:00am levothyroxine sodium 0.05 mg oral tablet (20 sources) l-Thyroxine Start: 025 take 1 tablet by mouth once daily levothyroxine (Synthroid, Levoxyl) 50 MCG tablet Indications: Postoperative hypothyroidism TAKE 1 TABLET BY MOUTH EVERY DAY 90 tablet 4 09/25/2024 Active Start: 06-28-2021 take 1 tablet by clayton th once daily Levothyroxine 50 mcg tablet Active 50 MCG PO Daily June 28, 2021 12:00am Magnesium (2 sources) Start: 06-28-2021 take 1 tablet by clayton th once daily Magnesium Tablet Active 50 TAB PO Daily June 28, 2021 12:00am Start: 06-28-2021 take 1 tablet by clayton th once daily Magnesium Active 50 TAB PO Daily June 27, 2021 11:00pm meloxicam 15 mg oral tablet (8 sources) Nonsteroidal Anti-inflammatory Drug Start: 07-08-2024 End: 10-06-2024 take 1 tablet by mouth once daily meloxicam (MOBIC) 15 MG tablet Indications: Lumbar radicular pain Take 1 (one) tablet (15 mg total) by mouth daily . 30 tablet 2 07/08/2024 10/06/2024 Active Start: 2024 End: 06-06-2024 take 1 tablet by mouth once daily meloxicam (MOBIC) 15 MG tablet Indications: Lumbar radicular pain Take 1 (one) tablet (15 mg total) by mouth daily for 15 days . 15 tablet 2024 06/06/2024 Active methylsulfonylmethane 500 mg oral capsule (2 sources) Start: 06-28-2021 Methylsulfonylmethane 500 mg Capsule Active 500 MG PO As Directed June 28, 2021 12:00am Multiple Vitamin (multivitamin) capsule (20 sources) take 1 capsule by mouth in the morning Multiple Vitamin (multivitamin) capsule Take 1 capsule by mouth in the morning. Active multivitamin per tablet (8 sources) take 1 tablet by mouth once daily multivitamin per tablet Take 1 (one) tablet by mouth daily . Active Multivitamin preparation (1 source) Start: 06-28-2021 take 1 tablet by mouth once daily Multivitamin Active 1 TAB PO Daily June 27, 2021 11:00pm Multivitamin Tablet (1 source) Start: 06-28-2021 take 1 tablet by mouth once daily Multivitamin Tablet Active 1 TAB PO Daily June 28, 2021 12:00am multivitamin with minerals tablet (8 sources) take 1 tablet by mouth once daily multivitamin with minerals tablet Take 1 (one) tablet by mouth daily . Active mupirocin 0.02 mg/mg topical ointment (2 sources) RNA Synthetase Inhibitor Antibacterial Start: 06-28-2021 Mupirocin 2 % ointment Active 1 APPLIC TOPICAL Twice daily June 28, 2021 12:00am [place]-3 Fatty Acids (1 source) Start: 06-28-2021 take 1250 mg by mouth once daily [place]-3 Fatty Acids Active 1250 MG PO Daily June 27, 2021 11:00pm [place]-3 Fatty Acids (Fish Oil) 1200 MG capsule delayed-release (20 sources) [place]-3 Fatty Ac ids (Fish Oil) 1200 MG capsule delayed-release Take by mouth Daily. Active [place]-3 Fatty Acids Capsule (1 source) Start: 06-28-2021 take 1 capsule by mouth once daily [place]-3 Fatty Acids Capsule Active 1250 MG PO Daily June 28, 2021 12:00am psyllium 3400 mg powder for oral suspension (20 sources) take 1 dose by mouth once daily psyllium (Metamucil) 48.57 % powder Take 1 Dose by mouth 1 (one) time each day at the same time. Active rOPINIRole 0.25 mg oral tablet (2 sources) Nonergot Dopamine Agonist Start: 06-28-2021 take 1 tablet by mouth three times daily Ropinirole 0.25 mg Tablet Active 0.25 MG PO Three times daily June 28, 2021 12:00am terbinafine 250 mg oral tablet (2 sources) Allylamine Antifungal Start: 06-28-2021 take 1 tablet by mouth once daily Terbinafine Hcl 250 mg tablet Active 250 MG PO Daily June 28, 2021 12:00am UNABLE TO FIND (20 sources) take 1 tablet by mouth once daily UNABLE TO FIND Take 1 tablet by mouth Daily Balance of nature Active Vitamin B Complex (1 source) Start: 06-28-2021 take 1 capsule by mouth once daily Vitamin B Complex Active 1 CAP PO Daily June 27, 2021 11:00pm Vitamin B Complex Capsule (1 source) Start: 06-28-2021 take 1 capsule by mouth once daily Vitamin B Complex Capsule Active 1 CAP PO Daily June 28, 2021 12:00am Problems Active Problems Problem Classification Problem Date [...] 11-29-2022 Chronic Other and unspecified benign neoplasm (2 sources) History of polyp of colon; Translations: [Personal history of colonic polyps] 06-28-2021 Episodic Other connective tissue disease (3 sources) History of cervical spine fusion; Translations: [Arthrodesis status] 2024 Episodic Other connective tissue disease (2 sources) Arthrodesis status; Translations: [Arthrodesis status] Onset: 07-17-2024 Episodic Other endocrine disorders (1 source) Hyperparathyroidism, [...] [Pain in right hip] 01-23-2024 Episodic Other nutritional; endocrine; and metabolic disorders (20 sources) Obese class I; Translations: [Class 1 obesity] Onset: 12-07-2022 12-10-2023 Chronic Other nutritional; endocrine; and metabolic disorders (2 sources) Body mass index 30+ - obesity; Translations: [Body mass index (BMI) 30.0-30.9, adult] 12-10-2023 Chronic Other screening for suspected conditions (not mental disorders or infectious disease) (1 source) Encounter for screening mammogram for malignant neoplasm of breast; Translations: [Encounter for screening mammogram for malignant neoplasm of breast] Onset: 07-03-2024 Episodic Spondylosis; intervertebral disc disorders; other back problems (5 sources) Lumbar arthritis; Translations: [Spondylosis without myelopathy or radiculopathy, lumbar region] Onset: 06-11-2024 06-11-2024 Chronic Past or Other Problems Problem Classification Problem Date Documented Date Episodic/Chronic Abdominal pain (4 sources) Unspecified abdominal pain; Translations: [UNSPECIFIED ABDOMINAL PAIN] Onset: 02-08-2022 Episodic Administrative/social admission (20 sources) Patient encounter status; Translations: [Other specified counseling] Onset: 12-10-2023 12-10-2023 Episodic Allergic reactions (20 sources) Eczema; Translations: [...] [Pain in right hip] 12-08-2023 Episodic Other non-traumatic joint disorders (4 sources) Pain in right hip; Translations: [Pain in right hip] Onset: 05-09-2024 Episodic Other skin disorders (2 sources) Eruption; Translations: [Rash and other nonspecific skin eruption] 12-08-2023 Episodic Residual codes; unclassified (3 sources) Postmenopausal state; Translations: [Asymptomatic menopausal state] Onset: 06-26-2024 06-11-2024 Episodic Spondylosis; intervertebral disc disorders; other back problems (9 sources) Backache; Translations: [Dorsalgia, unspecified] Onset: 2024 05-13-2024 Episodic Unclassified (2 sources) Lumbar radicular pain 05-24-2024 Results Test Name Value Interpretation Reference Range Facil ity XR ASPIRATION/INJECTION LARG E JOINT RIGHTon 09-25-2024 XR ASPIRATION/INJECTIO N LARGE JOINT RIGHT EXAMINATION: XR ASPIRATION/INJECTION LARGE JOINT RIGHT HISTORY: ORDERING SYSTEM PROVIDED HISTORY: right hip pain, TECHNOLOGIST PROVIDED HISTORY: Illness/Other Reason for exam: right hip pain Encounter Type: Initial Additional signs and symptoms: no Fluoro dose in mGy: 19.14 ORDERING SYSTEM PROVIDED DIAGNOSIS CODES: M16.11 Osteoarthritis of right hip, unspecified osteoarthritis type COMPARISON: None. TECHNIQUE: RADIATION EXPOSURE: Fluoro dose in Ka,r mGy: 19.14 The procedure was discussed. Complications such as bleeding and infection were discussed. Consent was obtained. Time-out was performed. Patient was placed supine in fluoroscopy. A suitable area for approach was marked by x-ray. The skin was sterilely prepared. Local lidocaine was injected. Subsequently a 22-gauge spinal needle was advanced and positioned within the femoral neck. 2 mL of iodine contrast confirmed location. Subsequently 4 mL of Marcaine and 80 mg of Kenalog was injected within the joint space. No complications were appreciated. IMPRESSION: The patient underwent a fluoroscopic guided intra-articular right hip injection of Marcaine and Kenalog as described above. [facility] Workstation ID: [id number] Dictated by: EM HAQUE on MonSep 25, 2024 2:43:32 PM EDT Transcribed by: NANCY URIOSTEGUI on MonSep 25, 2024 3:20:10 PM EDT Finalized by: EM HAQUE on MonSep 25, 2024 3:49:18 PM EDT Normal [facility] Comment on above: Order Comment: 10 ml lidocaine Then 2 ml kenalog Plus 4 ml maricaine Injury/Trauma or Illness?:Illness/Other How long have you had these symptoms (acute/chronic)?:Acute Reason for exam?:right hip pain Type of Exam?:Initial Additional signs and symptoms?:no Fluoro time in minutes:0.6 Fluoro dose in mGy?:19.14 XR CERVICAL SPINE AP/LAT/FLE X/EXTon 07-17-2024 XR CERVICAL SPINE AP/LAT/FLEX/EXT EXAMINATION: XR CERVICAL SPINE AP/LAT/FLEX/EXT HISTORY: ORDERING SYSTEM PROVIDED HISTORY: cervical pain, TECHNOLOGIST PROVIDED HISTORY: Illness/Other Reason for exam: S/P cervical spinal fusion Cancer History: [place] Surgery, RadiationHistory: no Encounter Type: Subsequent/Follow-up Additional signs and symptoms: na ORDERING SYSTEM PROVIDED DIAGNOSIS CODES: Z98.1 S/P cervical spinal fusion COMPARISON: None FINDINGS: AP and lateral views. Lateral views obtained with flexion and extension. There is and anterior orthopedic plate and screws at C5 and C6. there is a well incorporated bone graft plugs at C5-6. There is straightening of the normal cervical lordosis on the lateral neutral position view. There is mild disc space narrowing at C4-5 and C6-7. There is mild facet arthrosis. Dens is intact on the open mouth view. C7-T1 articulation is intact. No listhesis. Vertebral body heights are normal.There is no abnormal movement with flexion or extension. No prevertebral soft tissue swelling. IMPRESSION: 1. There is no evidence for instability with flexion or extension. 2. Previous discectomy and fusion at C5-6 without complication. 3. Mild cervical spondylosis. Workstation ID: [id number] Dictated by: MILAGROS QUIÑONES on MonJul 22, 2024 10:06:42 AM EDT Transcribed by: MILAGROS QUIÑONES on MonJul 22, 2024 10:06:42 AM EDT Finalized by: MILAGROS QUIÑONES on MonJul 22, 2024 10:06:42 AM EDT Normal [facility] Comment on above: Order Comment: Injur y/Trauma or Illness?:Illness/Other How long have you had these symptoms (acute/chronic)?:Unknown Reason for exam?:S/P cervical spinal fusion History of cancer?:[place] Surgeries, chemotherapy, or radiation?:no Type of Exam?:Subsequent/Follow-up Additional signs and symptoms?:na MM screening mammo BI w/CADo n 07-03-2024 MM screening mammo BI w/CAD [facility] [address] [place] [address] Mammography Report Signed Patient: Xiomara Blanco MR#: [id number] : 1950 Acct:[id number] Age/Sex: 74 / F Adm Date: 07/03/24 Loc: [place] Room: Type: [facility] Attending Dr: Lisette Wooten DO Ordering Provider: Lisette Wooten DO Date of Service: 07/03/24 Procedure(s): MM screening mammo BI w/CAD Accession Number(s): ([id number]) MM/MM screening mammo BI w/CAD: screening Copies [...] Itzel Clarke M.D.07/03/2024 1:07 PM Dictation Location: DWS01 Dictated By: Itzel Clarke MD 07/03/24 1305 Signed By: 07/03/24 1307 Normal [facility] Mammography reportOrdered By : Itzel Clarke on 07-03-2024 Diagnostic imaging study [facility] [address] [place] [address] Mammography Report Signed Patient: Xiomara Blanco MR#: [id number] : 1950 Acct:[id number] Age/Sex: 74 / F Adm Date: 5 Loc: [place] Room: Type: [facility] Attending Dr: Lisette Wooten DO Ordering Provider: Lisette Wooten DO Date of Service: 07/03/24 Procedure(s): MM screening mammo BI w/CAD Accession Number(s): ([id number]) MM/MM screening mammo BI w/CAD: screening Copies to: Lisette Wooten DO~ CLINICAL DATA: Screening for malignancy. BILATERAL SCREENING MAMMOGRAMS - FULL FIELD DIGITAL WITH TOMOSYNTHESIS AND CAD Tomosynthesis craniocaudal and mediolateral oblique views of both breasts were obtained using low-dose digital technique. Comparison is made to prior [...] Itzel Clarke M.D.07/03/2024 1:07 PM Dictation Location: DWS01 Dictated By: Itzel Clarke MD 07/03/24 1305 Signed By: 07/03/24 130 [facility] Work Phone: XR LUMBAR SPINE 2-3 VIEWS (Gerry MERIDA)on 2024 XR LUMBAR SPINE 2-3 VIEWS (STANDARD) [...] MonMay 28, 2024 11:03:09 AM EST Normal [facility] Comment on above: Order Comment: STAND ING [...] fractures. 3. Other chronic findings as described. [facility] Workstation ID: [id number] Dictated by: LUIS ENRIQUE FLEMING on MonMay 10, 2024 12:23:30 PM EST Transcribed by: DEVI HOFFMAN on MonMay 10, 2024 12:40:28 PM EST Finalized by: LUIS ENRIQUE FLEMING on MonMay 10, 2024 2:33:49 PM EST Normal [facility] Comment on above: Order Comment: Injur y/Trauma [...] ID: [id number] Dictated by: DOREEN OSORIO on [place] May 12, 2024 12:02:36 PM EST Transcribed by: DOREEN OSORIO on [place] May 12, 2024 12:02:36 PM EST Finalized by: DOREEN OSORIO on [place] May 12, 2024 12:02:36 PM EST Normal [facility] Comment on above: Order Comment: Injur y/Trauma [...] permanent medical record. Significant multilevel degenerative changes. [facility] XR Pelvis 1 or 2 [facility] Result: AP pelvis taken today, AP/lateral right hip(s) taken 12/08/2023 and saved to the permanent medical record. Advanced arthritis in the right hip. Moderate arthritis in the left hip. [facility] [employer] [facility] XR Lumbar spine 2 or 3 Views on 01-23-2024 Radiology Study observation (narrative) [facility] [employer] XR Pelvis 1 or 2 [facility] Radiology Study observation (narrative) [facility] [employer] PTH INTACTon 05-27-2022 PTH, Intact 12 pg/mL Critically low 15-65 [facility] Comment on above: Performed By: #### P THINT #### [facility] [address], [place] [address] Dr. Sharmila Mitchell FREE T4on 05-26-2022 Free T4 [Mass/Vol] 1.27 ng/dL Normal 0.76-1.46 [facility] Comment on above: Performed By: #### F T4, VITAD #### [facility] [address], [place] [address] Dr. Sharmila Mitchell LIPID PROFILEon 05-26-2022 CHOL-HDL RATIO NORM SEE BELOW Normal [facility] Comment on above: Result Comment: 3.3 - 4.4 LOW RISK 4.4 - 7.1 AVERAGE RISK 7.1 - 11.0 MODERATE RISK >11.0 HIGH RISK Performed By: #### L IPID, TSH, CMP #### [facility] [address] [place] [address] [address] Sharmila Mitchell Cholesterol [Mass/Vol] 141 mg/dL Normal <=200 [facility] Comment on above: Performed By: #### L IPID, TSH, CMP #### [facility] [address] [place] [address] [address] Sharmila Mitchell Cholesterol in HDL [Mass/Vol] 56 mg/dL Normal 40-60 [facility] Comment on above: Performed By: #### L IPID, TSH, CMP #### [facility] [address] [place] [address] [address] Sharmila Mitchell Cholesterol in LDL [Mass/Vol] 68.4 mg/dL Normal [facility] Comment on above: Performed By: #### L IPID, TSH, CMP #### [facility] [address] [place] [address] [address] Sharmila Mitchell Cholesterol.total/C holesterol in HDL [Mass ratio] 2.5 {ratio} Normal [facility] Comment on above: Performed By: #### L IPID, TSH, CMP #### [facility] [address] [place] [address] [address] Sharmila Mitchell HDL NORMAL > or = 60 mg/dl - LOW CARDIOVASCULAR RISK <40 mg/dl - HIGH CARDIOVASCULAR RISK Normal [facility] Comment on above: Performed By: #### L IPID, TSH, CMP #### [facility] [address] [place] [address] [address] Sharmila Mtichell LDL CALC NORMAL SEE BELOW Normal [facility] Comment on above: Result Comment: <100 mg/dl OPTIMAL 100 - 129 mg/dl NEAR OR ABOVE OPTIMAL 130 - 159 mg/dl BORDERLINE HIGH 160 - 189 mg/dl HIGH >190 mg/dl VERY HIGH Performed By: #### L IPID, TSH, CMP #### [facility] [address] [place] [address] [address] Sharmila Mitchell Triglyceride [Mass/Vol] 83 mg/dL Normal <=150 [facility] Comment on above: Performed By: #### L IPID, TSH, CMP #### [facility] [address] [place] [address] [address] Sharmila Mitchell VLDL CALC 16.6 mg/dL Normal [facility] Comment on above: Performed By: #### L IPID, TSH, CMP #### [facility] [address] [place] [address] Dr. Sharmila Mitchell PROF 14(COMP METB)on 023 Albumin [Mass/Vol] 4.1 g/dL Normal 3.4-5.0 [facility] Comment on above: Performed By: #### L IPID, TSH, CMP #### [facility] [address] [place] [address] Dr. Sharmila Mitchell Albumin/Globulin [Mass ratio] 1.3 {ratio} Normal [facility] Comment on above: Performed By: #### L IPID, TSH, CMP #### [facility] [address] [place] [address] Dr. Sharmila Mitchell ALP [Catalytic activity/Vol] 84 U/L Normal 46-116 [facility] [facility] Comment on above: Performed By: #### L IPID, TSH, CMP #### [facility] [address] [place] [address] Dr. Sharmila Mitchell ALT [Catalytic activity/Vol] 26 U/L Normal 14-59 [facility] Comment on above: Performed By: #### L IPID, TSH, CMP #### [facility] [address] [place] [address] Dr. Sharmila Mitchell Anion gap [Moles/Vol] 14.3 mmol/L Normal [facility] Comment on above: Performed By: #### L IPID, TSH, CMP #### [facility] [address] [place] [address] Dr. Sharmila Mitchell AST [Catalytic activity/Vol] 18 U/L Normal 15-37 [facility] Comment on above: Performed By: #### L IPID, TSH, CMP #### [facility] [address] [address] [address] Sharmila Mitchell Bilirubin [Mass/Vol] 1.0 mg/dL Normal 0.2-1.0 [facility] Comment on above: Performed By: #### L IPID, TSH, CMP #### [facility] [address] [address] [address] Sharmila Mitchell Calcium [Mass/Vol] 9.2 mg/dL Normal 8.5-10.1 [facility] Comment on above: Performed By: #### L IPID, TSH, CMP #### [facility] [address] [place] [address] Dr. Sharmila Mitchell Chloride [Moles/Vol] 105 mmol/L Normal 98-107 [facility] Comment on above: Performed By: #### L IPID, TSH, CMP #### [facility] [address] [place] [address] Dr. Sharmila Mitchell CO2 [Moles/Vol] 25.4 mmol/L Normal 21.0-32.0 [facility] Comment on above: Performed By: #### L IPID, TSH, CMP #### [facility] [address] [place] [address] Dr. Sharmila Mitchell Creatinine [Mass/Vol] 0.69 mg/dL Normal 0.55-1.02 [facility] Comment on above: Performed By: #### L IPID, TSH, CMP #### [facility] [address] [place] [address] Dr. Sharmila Mitchell EGFR-AF URUGUAYAN >60 Normal >=60 [facility] Comment on above: Performed By: #### L IPID, TSH, CMP #### [facility] [address] [place] [address] Dr. Sharmila Mitchell EGFR-NON AF URUGUAYAN >60 Normal >=60 [facility] Comment on above: Performed By: #### L IPID, TSH, CMP #### [facility] [address] [place] [address] Dr. Sharmila Mitchell Globulin (S) [Mass/Vol] 3.1 g/dL Normal [facility] Comment on above: Performed By: #### L IPID, TSH, CMP #### [facility] [address] [place] [address] Dr. Sharmila Mitchell Glucose [Mass/Vol] 103 mg/dL Normal 74-106 [facility] Comment on above: Performed By: #### L IPID, TSH, CMP #### [facility] [address] [place] [address] Dr. Sharmila Mitchell Potassium [Moles/Vol] 3.7 mmol/L Normal 3.5-5.1 [facility] Comment on above: Performed By: #### L IPID, TSH, CMP #### [facility] [address] [place] [address] Dr. Sharmila Mitchell Protein [Mass/Vol] 7.2 g/dL Normal 6.4-8.2 [facility] Comment on above: Performed By: #### L IPID, TSH, CMP #### [facility] [address] [place] [address] Dr. Sharmila Mitchell Sodium [Moles/Vol] 141 mmol/L Normal 136-145 [facility] Comment on above: Performed By: #### L IPID, TSH, CMP #### [facility] [address] [place] [address] Dr. Sharmila Mitchell Urea nitrogen [Mass/Vol] 10.0 mg/dL Normal 7.0-18.0 [facility] Comment on above: Performed By: #### L IPID, TSH, CMP #### [facility] [address] [place] [address] Dr. Sharmila Mitchell Urea nitrogen/Creatinine [Mass ratio] 14.5 mg/mg Normal [facility] Comment on above: Performed By: #### L IPID, TSH, CMP #### [facility] [address] [place] [address] Dr. Sharmila Mitchell TSHon 05-26-2022 TSH 1.836 uIU/mL Normal 0.358-3.740 [facility] Comment on above: Performed By: #### L IPID, TSH, CMP #### [facility] [address] [place] [address] Dr. Sharmila Mitchell VITAMIN D 25 OHon 05-26-2022 VIT D 25-OH 67.7 ng/mL Normal [facility] Comment on above: Performed By: #### F T4, VITAD #### [facility] [address] [place] [address] Dr. Sharmila Mitchell VIT D RANGES SEE BELOW Normal [facility] Comment on above: Result Comment: <20 ng/mL Vit D deficient 20 - <30 ng/mL Vit D insufficient 30 - 100 ng/mL Vit D sufficient >100 ng/mL Potential Toxicity Performed By: #### F T4, VITAD #### [facility] [address] [place] [address] Dr. Sharmila Mitchell CBC AUTO DIFFon 02-08-2022 BASO # 0.0 103/ul Normal 0.0-0.1 [facility] Comment on above: Performed By: #### ZARINA SALINAS #### [facility] [address] [place] [address] Dr. Sharmila Mitchell Basophils/100 WBC (Bld) 0.3 % Normal 0.2-2.0 [facility] Comment on above: Performed By: #### ZARINA SALINAS #### [facility] [address] [place] [address] Dr. Sharmila Mitchell EO # 0.2 103/ul Normal 0.0-0.7 [facility] Comment on above: Performed By: #### ZARINA SALINAS #### [facility] [address] [place] [address] Dr. Sharmila Mitchell Eosinophils/100 WBC (Bld) 2.6 % Normal 0.9-7.0 [facility] Comment on above: Performed By: #### ZARINA SALINAS #### [facility] [address] [place] [address] Dr. Sharmila Mitchell Erythrocyte distribution width (RBC) [Ratio] 12.2 % Normal 11.0-15.0 [facility] Comment on above: Performed By: #### ZARINA SALINAS #### [facility] [address] [place] [address] Dr. Sharmila Mitchell Hematocrit (Bld) [Volume fraction] 47.2 % Normal 36.0-48.0 [facility] Comment on above: Performed By: #### Arik RAYGOZA UMICRO #### [facility] [address] [place] [address] Dr. Sharmila Mitchell Hemoglobin (Bld) [Mass/Vol] 16.3 g/dL Critically high 12.0-16.0 [facility] Comment on above: Performed By: #### Arik RAYGOZA, UMICRO #### [facility] [address] [place] [address] Dr. Sharmila Mitchell IG # 0.02 10e3/ul Normal 0.00-0.03 [facility] Comment on above: Performed By: #### Arik RAYGOZA UMICRO #### [facility] [address] [place] [address] Dr. Sharmila Mitchell IG % 0.3 % Normal 0.0-0.5 [facility] Comment on above: Performed By: #### Arik RAYGOZA UMICRO #### [facility] [address] [place] [address] Dr. Sharmila Mitchell LYMPH # 1.9 103/ul Normal 1.2-3.8 [facility] Comment on above: Performed By: #### Arik RAYGOZA, UMICRO #### [facility] [address] [place] [address] Dr. Sharmila Mitchell Lymphocytes/100 WBC (Bld) 28.4 % Normal 20.5-60.0 [facility] Comment on above: Performed By: #### Arik RAYGOZA, UMICRO #### [facility] [address] [place] [address] Dr. Sharmila Mitchell MANUAL DIFF REQ NO Normal [facility] Comment on above: Performed By: #### Arik RAYGOZA, UMICRO #### [facility] [address] [place] [address] Dr. Sharmila Mitchell MCH (RBC) [Entitic mass] 30.0 pg Normal 26.7-34.0 [facility] Comment on above: Performed By: #### CHAITANYA SALINASRO #### [facility] [address] [place] [address] Dr. Sharmila Mitchell MCHC (RBC) [Mass/Vol] 34.5 g/dL Normal 29.9-35.2 [facility] Comment on above: Performed By: #### SETH SALINASICRO #### [facility] [address] [place] [address] Dr. Sharmila Mitchell MCV (RBC) [Entitic vol] 86.9 fL Normal 81.0-99.0 [facility] Comment on above: Performed By: #### CHAITANYA SALINASRO #### [facility] [address] [place] [address] Dr. Sharmila Mitchell MONO # 0.5 103/ul Normal 0.3-0.8 [facility] Comment on above: Performed By: #### CHAITANYA SALINASRO #### [facility] [address] [place] [address] Dr. Sharmila Mitchell Monocytes/100 WBC (Bld) 8.2 % Normal 1.7-12.0 [facility] Comment on above: Performed By: #### CHAITANYA SALINASRO #### [facility] [address] [place] [address] Dr. Sharmila Mitchell NEUT # 4.0 103/ul Normal 1.4-6.5 [facility] Comment on above: Performed By: #### CHAITANYA SALINASRO #### [facility] [address] [place] [address] Dr. Sharmila Mitchell Neutrophils/100 WBC (Bld) 60.2 % Normal 43.0-75.0 [facility] Comment on above: Performed By: #### CHAITANYA SALINASRO #### [facility] [address] [place] [address] Dr. Sharmila Mitchell Platelet mean volume (Bld) [Entitic vol] 10.3 fL Normal 9.5-13.5 [facility] Comment on above: Performed By: #### CHAITANYA SALINASRO #### [facility] [address] [address] [address] Sharmila Mitchell PLT 241 103/ul Normal 150-450 [facility] Comment on above: Performed By: #### ZARINA SALINAS #### [facility] [address] [address] [address] Sharmila Mitchell RBC 5.43 106/ul Critically high 4.20-5.40 [facility] Comment on above: Performed By: #### ZARINA SALINAS #### [facility] [address] [address] [address] Sharmila Mitchell WBC 6.6 103/ul Normal 4.0-11.0 [facility] Comment on above: Performed By: #### ZARINA SALINAS #### [facility] [address] [address] [address] ABD/PELVIS WO CONon [...] JACQUELINE CRUZ Date: 2022-02-08 08:59 Normal [facility] ER URINE PROFILEon 2 Bilirubin Ql (U) Negative Normal NEGATIVE [facility] Comment on above: Performed By: #### ZARINA SALINAS #### [facility] [address] [place] [address] Dr. Sharmila Mitchell Clarity (U) CLEAR Normal CLEAR [facility] Comment on above: Performed By: #### ZARINA SALINAS #### [facility] [address] [place] [address] Dr. Sharmila Mitchell Color (U) LT. YELLOW Normal YELLOW [facility] Comment on above: Performed By: #### CHAITANYA SALINASRO #### [facility] [address] [place] [address] Dr. Sharmila Mitchell ERUEDNAD A micrscopic examination will be performed if indicated. Normal [facility] Comment on above: Performed By: #### CHAITANYA SALINASRO #### [facility] [address] [place] [address] Dr. Sharmila Mitchell Glucose Ql (U) Negative Normal NEGATIVE [facility] Comment on above: Performed By: #### CHAITANYA SALINASRO #### [facility] [address] [place] [address] Dr. Sharmila Mitchell Hemoglobin Ql (U) TRACE-LYSED Abnormal NEGATIVE [facility] Comment on above: Performed By: #### CHAITANYA SALINASRO #### [facility] [address] [place] [address] Dr. Sharmila Mitchell Ketones Ql (U) Negative Normal NEGATIVE [facility] Comment on above: Performed By: #### Arik RAYGOZA UMICRO #### [facility] [address] [place] [address] Dr. Sharmila Mitchell LEUKOCYTES Negative Normal NEGATIVE [facility] Comment on above: Performed By: #### Arik RAYGOZA UMICRO #### [facility] [address] [address] [address] Sharmila Mitchell Nitrite Ql (U) Negative Normal NEGATIVE [facility] Comment on above: Performed By: #### Arik RAYGOZA UMICRO #### [facility] [address] [place] [address] Dr. Sharmila Mitchell pH (U) 6.0 [pH] Normal 5-9 [facility] Comment on above: Performed By: #### Arik RAYGOZA UMICRO #### [facility] [address] [place] [address] Dr. Sharmila Mitchell SPEC GRAVITY 1.015 Normal 1.005-<=1.025 [facility] Comment on above: Performed By: #### Arik RAYGOZA UMICRO #### [facility] [address] [place] [address] Dr. Sharmila Mitchell UA PROTEIN Negative Normal NEGATIVE/ TRACE [facility] Comment on above: Performed By: #### Arik RAYGOZA UMICRO #### [facility] [address] [place] [address] Dr. Sharmila Mitchell UR MICRO IND INDICATED Normal [facility] Comment on above: Performed By: #### Arik RAYGOZA UMICRO #### [facility] [address] [place] [address] Dr. Sharmila Mitchell Urobilinogen Qn (U) 0.2 {Mateo'U}/dL Normal 0.2 - 1. 0 [facility] Comment on above: Performed By: #### Arik RAYGOZA UMICRO #### [facility] [address] [place] [address] Dr. Sharmila Mitchell PROF CHEM 8 (BAS METB)on Anion gap [Moles/Vol] 16.3 mmol/L Normal [facility] Comment on above: Performed By: #### B MP #### [facility] [address] [address] [address] Sharmila Mitchell Calcium [Mass/Vol] 8.6 mg/dL Normal 8.5-10.1 [facility] Comment on above: Performed By: #### B MP #### [facility] [address] [address] [address] Sharmila Mitchell Chloride [Moles/Vol] 106 mmol/L Normal 98-107 [facility] Comment on above: Performed By: #### B MP #### [facility] [address] [address] [address] Sharmila Mitchell CO2 [Moles/Vol] 24.6 mmol/L Normal 21.0-32.0 [facility] Comment on above: Performed By: #### B MP #### [facility] [address] [address] [address] Sharmila Mitchell Creatinine [Mass/Vol] 0.80 mg/dL Normal 0.55-1.02 [facility] Comment on above: Performed By: #### B MP #### [facility] [address] [address] [address] Sharmila Mitchell EGFR-AF URUGUAYAN >60 Normal >=60 [facility] Comment on above: Performed By: #### B MP #### [facility] [address] [address] [address] Sharmila Mitchell EGFR-NON AF URUGUAYAN >60 Normal >=60 [facility] Comment on above: Performed By: #### B MP #### [facility] [address] [address] [address] Sharmila Mitchell Glucose [Mass/Vol] 107 mg/dL Critically high 74-106 [facility] Comment on above: Performed By: #### B MP #### [facility] [address] [address] [address] Sharmila Mtichell Potassium [Moles/Vol] 3.9 mmol/L Normal 3.5-5.1 [facility] Comment on above: Performed By: #### B MP #### [facility] [address] [address] [address] Sharmila Mitchell Sodium [Moles/Vol] 143 mmol/L Normal 136-145 [facility] Comment on above: Performed By: #### B MP #### [facility] [address] [place] [address] Dr. Sharmila Mitchell Urea nitrogen [Mass/Vol] 12.0 mg/dL Normal 7.0-18.0 [facility] Comment on above: Performed By: #### B MP #### [facility] [address] [place] [address] Dr. Sharmila iMtchell Urea nitrogen/Creatinine [Mass ratio] 15.0 mg/mg Normal [facility] Comment on above: Performed By: #### B MP #### [facility] [address] [place] [address] Dr. Sharmila Mitchell URINE MICROSCOPIC ONLYon BACTERIA NONE SEEN Normal NONE SEEN [facility] Comment on above: Performed By: #### Arik RAYGOZA UMICRO #### [facility] [address] [place] [address] Dr. Sharmila Mitchell Bacteria identified Cx Nom (U) NOT INDICATED Normal [facility] Comment on above: Performed By: #### Arik RAYGOZA UMICRO #### [facility] [address] [place] [address] Dr. Sharmila Mitchell CAST NONE SEEN Normal NONE SEEN [facility] Comment on above: Performed By: #### Arik RAYGOZA UMICRO #### [facility] [address] [place] [address] Dr. Sharmila Mitchell Crystals LM Nom (Urine sed) NONE SEEN Normal NONE SEEN [facility] Comment on above: Performed By: #### Arik RAYGOZA UMICRO #### [facility] [address] [place] [address] Dr. Sharmila Mitchell Epithelial cells LM Ql (Urine sed) NONE SEEN Normal NONE SEEN /RARE [facility] Comment on above: Performed By: #### Arik RAYGOZA UMICRO #### [facility] [address] [place] [address] Dr. Sharmila Mitchell MUCOUS NONE SEEN Normal NONE SEEN [facility] Comment on above: Performed By: #### E RUR, UMICRO #### [facility] [address] [address] [address] Sharmila Mitchell RBC 0-2 Normal 0-2 [facility] Comment on above: Performed By: #### E RUR, UMICRO #### [facility] [address] [address] [address] Sharmila Mitchell WBC NONE SEEN Normal NONE SEEN [facility] Comment on above: Performed By: #### E RUR, UMICRO #### [facility] [address] [address] [address] Sharmila Mitchell Vital Signs Date Time Vital Sign Value Performing Clinician Facility 09-19-2024 12:49-0400 Body height 165.1 cm Jerzy Canrenée DO Work Phone: [facility] 09-19-2024 12:49-0400 Body mass index (BMI) [Ratio] 30.79 kg/m2 Jerzy Canini DO Work Phone: [facility] 09-19-2024 12:49-0400 Body weight 83.92 kg Jerzy Canini DO Work Phone: [facility] 07-17-2024 12:40-0400 Body height 165.1 cm Clarice Starns PA-C Work Phone: [facility] Comment on above: patient reported 07-17-2024 12:40-0400 Body mass index (BMI) [Ratio] 30.79 kg/m2 Clarice Starns PA-C Work Phone: [facility] 07-17-2024 12:40-0400 Body weight 83.92 kg Clarice Starns PA-C Work Phone: [facility] Comment on above: patient reported 07-17-2024 12:40-0400 Diastolic blood pressure 69 mm[Hg] Clarice Proctorns PA-C Work Phone: [facility] 07-17-2024 12:40-0400 Heart rate 84 /min Clarice Starns PA-C Work Phone: [facility] 07-17-2024 12:40-0400 Systolic blood pressure 105 mm[Hg] Clarice Starns PA-C Work Phone: [facility] 06-11-2024 09:09-0500 Body mass index (BMI) [Ratio] 30.79 kg/m2 Lisette Murcia-[place] DO Work Phone: [facility] 06-11-2024 09:09-0500 Body weight 83.92 kg Lisette Murcia-[place] DO Work Phone: [facility] 06-11-2024 09:09-0500 Diastolic blood pressure 50 mm[Hg] Lisette Murcia-[place] DO Work Phone: [facility] 06-11-2024 09:09-0500 Heart rate 78 /min Lisette Murcia-[place] DO Work Phone: [facility] 06-11-2024 09:09-0500 SaO2% (BldA) [Mass fraction] 97 % Lisette Murcia-[place] DO Work Phone: [facility] 06-11-2024 09:09-0500 Systolic blood pressure 102 mm[Hg] Lisette Murcia-[place] DO Work Phone: [facility] 2024 13:15-0500 Diastolic blood pressure 84 mm[Hg] Clarice Starns PA-C Work Phone: [facility] 2024 13:15-0500 Heart rate 83 /min Clarice Starns PA-C Work Phone: [facility] 2024 13:15-0500 Systolic blood pressure 118 mm[Hg] Clarice Starns PA-C Work Phone: [facility] 05-13-2024 11:04-0500 Body height 165.1 cm Jerzy Hodges DO Work Phone: [facility] 05-13-2024 11:04-0500 Body mass index (BMI) [Ratio] 30.79 kg/m2 Jerzy Hodges DO Work Phone: [facility] 05-13-2024 11:04-0500 Body weight 83.92 kg Jerzy Hodges DO Work Phone: [facility] 05-09-2024 10:12-0500 Body height 165.1 cm Jerzy Hodges DO Work Phone: [facility] 05-09-2024 10:12-0500 Body mass index (BMI) [Ratio] 30.79 kg/m2 Jerzy Hodges DO Work Phone: [facility] 05-09-2024 10:12-0500 Body weight 83.92 kg Jerzy Hodges DO Work Phone: [facility] 03-05-2024 10:49-0500 Body height 165.1 cm Pérez Navarrete DO Work Phone: [facility] 03-05-2024 10:49-0500 Body mass index (BMI) [Ratio] 30.79 kg/m2 Pérez Navarrete DO Work Phone: [facility] 03-05-2024 10:49-0500 Body temperature 97.39 [degF] Pérez Navarrete DO Work Phone: [facility] 03-05-2024 10:49-0500 Body weight 83.92 kg Pérez Navarrete DO Work Phone: [facility] 01-23-2024 13:26-0400 Body height 165.1 cm Pérez Navarrete DO Work Phone: [facility] 01-23-2024 13:26-0400 Body mass index (BMI) [Ratio] 30.79 kg/m2 Pérez Navarrete DO Work Phone: [facility] 01-23-2024 13:26-0400 Body weight 83.92 kg Pérez Navarrete DO Work Phone: [facility] 12-08-2023 09:09-0400 Body mass index (BMI) [Ratio] 30.89 kg/m2 Lisette Wooten DO Work Phone: [facility] 12-08-2023 09:09-0400 Body weight 84.19 kg Lisette Murcia-[place] DO Work Phone: [facility] 12-08-2023 09:09-0400 Diastolic blood pressure 76 mm[Hg] Lisette Murcia-[place] DO Work Phone: [facility] 12-08-2023 09:09-0400 Heart rate 88 /min Lisette Murcia-[place] DO Work Phone: [facility] 12-08-2023 09:09-0400 SaO2% (BldA) [Mass fraction] 98 % Lisette Murcia-[place] DO Work Phone: [facility] 12-08-2023 09:09-0400 Systolic blood pressure 118 mm[Hg] Lisette Murcia-[place] DO Work Phone: [facility] Healthcare Encounters Encounter Date Encounter Type Care Provider Facility Start: 11-07-2024 End: 11-07-2024 Telephone encounter Lisette Wooten DO Work Phone: [facility] Comment on above: [facility] Lab order Start: 09-25-2024 End: 09-25-2024 ambulatory JERZY HANSEL [facility] Start: 09-19-2024 End: 09-19-2024 Office outpatient visit 15 minutes Jerzy Hodges DO Work Phone: [facility] Comment on above: Osteoarthritis of ri ght hip, unspecified osteoarthritis type (Primary Dx) Start: 09-19-2024 End: 09-19-2024 ambulatory JERZY [facility] Start: 07-17-2024 End: 07-17-2024 Office outpatient visit 25 minutes Clarice Robbins PA-C Work Phone: [facility] Comment on above: Lumbar radicular winsome n (Primary Dx); S/P cervical spinal fusion Start: 07-17-2024 End: 07-17-2024 ambulatory LISETTERA Steve MURCIA EMERY [facility] Start: 07-17-2024 End: 07-17-2024 ambulatory LISETTE Wilson [facility] Start: 07-08-2024 End: 07-08-2024 Leonardo Robbins PA-C Work Phone: [facility] Comment on above: Lumbar radicular winsome n Start: 07-03-2024 End: 07-03-2024 Patient encounter procedure Lisette Wooten DO Work Phone: [facility] Work Phone: Start: 07-03-2024 End: 07-03-2024 ambulatory Lisette Wooten DO Work Phone: [facility] Work Phone: Start: 06-11-2024 End: 06-11-2024 Office outpatient visit 25 minutes Lisette Wooten DO Work Phone: [facility] Comment on above: Mixed hyperlipidemia (CMS/HCC) (Primary Dx); Postoperative hypothyroidism (CMS/HCC); Arthritis of right hip; Vitamin D deficiency; Encounter for screening mammogram for malignant neoplasm of breast; Arthritis, lumbar spine; Osteoporosis screening; Postmenopausal Start: 06-11-2024 End: 06-11-2024 ambulatory LISETTE WOOTEN Not Available Start: 2024 End: 2024 Office outpatient new 45 minutes Clarice Robbins PA-C Work Phone: [facility] Comment on above: Lumbar radicular winsome n (Primary Dx); Osteoarthritis of right hip, unspecified osteoarthritis type; S/P cervical spinal fusion Start: 2024 End: 2024 [facility] Start: 05-13-2024 End: 05-13-2024 Office outpatient visit 15 minutes Jerzy Hodges DO Work Phone: [facility] Comment on above: Osteoarthritis of ri ght hip, unspecified osteoarthritis type (Primary Dx) Start: 05-13-2024 End: 05-13-2024 Orders Only Austin Ibrahim MD Work Phone: [facility] Comment on above: Back pain, unspecifi ed back location, unspecified back pain laterality, unspecified chronicity (Primary Dx) Start: 05-10-2024 End: 05-10-2024 ambulatory JERZY HODGES [facility] Start: 05-09-2024 End: 05-09-2024 Office outpatient new 30 minutes Jerzy Hodges DO Work Phone: [facility] Comment on above: Right hip pain (Prim sary Dx); Osteoarthritis of right hip, unspecified osteoarthritis type Start: 05-09-2024 End: 05-09-2024 ambulatory LISETTE Steve MURCIA [facility] Start: 05-06-2024 End: 05-06-2024 Orders Only Jerzy Hodges DO Work Phone: [facility] Comment on above: Right hip pain (Prim sary Dx) Start: 03-05-2024 End: 03-05-2024 Patient encounter procedure Pérez Navarrete DO Work Phone: [facility] Comment on above: Primary osteoarthrit is of right hip (Primary Dx) Start: 03-05-2024 End: 03-05-2024 ambulatory PÉREZ NAVARRETE Not Available Start: 02-29-2024 End: 02-29-2024 Bamboo [...] Start: 02-22-2024 End: 02-22-2024 Bamboo flowsheet Sergey Boldne PT Work Phone: [facility] Start: [...] PT Start: 02-20-2024 End: 02-20-2024 ambulatory Sergey Bolden PT Work Phone: [facility] Comment on above: Right hip pain (Prim sary Dx); Primary osteoarthritis of right hip Start: 02-08-2024 End: 02-08-2024 Bamboo flowsheet Sergey Kennedyton PT Work Phone: [facility] Start: 02-08-2024 End: 02-08-2024 Bamboo flowsheet Sergey Kennedyton PT Work Phone: [facility] Start: 02-08-2024 End: 02-08-2024 ambulatory Sergeyjnae Kennedyton PT Work Phone: [facility] Comment on above: Right hip pain (Prim sary Dx); Primary osteoarthritis of right hip Start: 02-06-2024 End: 02-06-2024 Bamboo flowsheet Sergey Mcclain [place] PT Work Phone: [facility] Start: 02-06-2024 End: 02-06-2024 Bamboo flowsheet Sergey Dionisio [place] PT Work Phone: [facility] Start: 02-06-2024 End: 02-06-2024 ambulatory Sergey Kennedyton PT Work Phone: [facility] Comment on above: Right hip pain (Prim sary Dx); Primary osteoarthritis of right hip Start: 02-01-2024 End: 02-01-2024 Bamboo flowsheet Sergey Kennedyton PT Work Phone: [facility] Start: 02-01-2024 End: 02-01-2024 Bamboo flowsheet Sergey Kennedyton PT Work Phone: [facility] Start: 02-01-2024 End: 02-01-2024 ambulatory Sergey Bolden PT Work Phone: [facility] Comment on above: Right hip pain (Prim sary Dx); Primary osteoarthritis of right hip Start: 01-30-2024 End: 01-30-2024 Bamboo flowsheet Sergey Dionisio [place] PT Work Phone: [facility] Start: 01-30-2024 End: 01-30-2024 Bamboo flowsheet Sergey Dionisio [place] PT Work Phone: [facility] Start: 01-30-2024 End: 01-30-2024 ambulatory Sergey T [place]ston PT Work Phone: [facility] Comment on above: Right hip pain (Prim sary Dx); Primary osteoarthritis of right hip Start: 01-23-2024 End: 01-23-2024 Patient encounter procedure Pérez Navarrete DO Work Phone: [facility] Comment on above: Right hip pain (Prim sary Dx) Start: 01-23-2024 End: 01-23-2024 ambulatory PÉREZ NAVARRETE Not Available Start: 01-23-2024 End: 01-23-2024 ambulatory PÉREZ NAVARRETE Not Available Start: 12-08-2023 End: 12-08-2023 Office [...] Start: 12-08-2023 End: 12-08-2023 Patient encounter procedure Listete Wooten DO Work Phone: [facility] Work Phone: Start: 12-08-2023 End: 12-08-2023 ambulatory LISETTE WOOTEN Not Available Start: 06-24-2022 End: 06-24-2022 ambulatory DO Lisette Wooten Work Phone: [facility] Work Phone: Start: 06-24-2022 End: 06-24-2022 Patient encounter procedure DO Lisette Wooten Work Phone: [facility] Work Phone: Start: 05-26-2022 End: 05-27-[address] LISETTE MAYORGA Facility:[facility]1 Start: 02-08-2022 End: 02-08-2022 ambulatory LISETTE MAYORGA Facility:[facility] Procedures Date Procedure Procedure Detail Performing Clinician Start: 07-17-2024 Follow-up visit Follow-up CHAPINCITO ROBBINS Start: 07-03-2024 End: 07-03-2024 Screening mammography of bilateral breasts Lisette Wooten DO Work Phone: Start: 01-23-2024 Radex spine lumbosac ral 2/3 views Pérez Navarrete DO Work Phone: Start: 01-23-2024 Radiologic examinati on pelvis 1/2 views Pérez Navarrete DO Work Phone: Start: 06-27-2023 Mammography Pérez delgado DO Work Phone: Start: 06-24-2022 Screening mammograph y of bilateral breasts DO Lisette Wooten Work Phone: Start: 06-28-2021 Colonoscopy Pérez delgado DO Work Phone: Plan of Treatment Date Care Activity Detail Author Start: 06-29-2031 Screening for malignant neoplasm of colon [facility] Start: 06-28-2026 Screening for malignant neoplasm of colon [facility] Start: 07-03-2025 Screening for malignant neoplasm of breast Mammogram [facility] Start: 04-28-2025 End: 04-28-2025 Patient encounter procedure 04/28/2025 11:00 AM EST Office Visit [facility] [address] [place] [phone] Blaise Heredia, DO [address] [place] [address] [facility] Start: 12-16-2024 Influenza vaccination Influenza Vaccine (#1) [facility] Start: 12-10-2024 End: 12-10-2024 Patient encounter procedure 12/10/2024 9:00 AM EDT Office Visit [facility] [address] [place] [address] Lisette Wooten, DO [address] [place] [address] [facility] Start: 12-07-2024 Medicare Annual Wellness (AWV) Medicare Annual Wellness (AWV) [facility] Start: 12-02-2024 End: 11-07-2025 25-hydroxyvitamin D3 [Mass/volume] in Serum or Plasma Vitamin D 25 hydroxy Total Lab Routine Postoperative hypothyroidism Expected: 12/02/2024, Expires: 11/07/2025 [facility] Comment on above: Expected: 12/02/2024, Expires: Start: 12-02-2024 End: 11-07-2025 CBC panel - Blood by Automated count CBC Lab Routine Postoperative hypothyroidism Expected: 12/02/2024, Expires: 11/07/2025 [facility] Comment on above: Expected: 12/02/2024, Expires: Start: 12-02-2024 End: 11-07-2025 Comprehensive metabolic 2000 panel - Serum or Plasma Comprehensive metabolic panel Lab Routine Mixed hyperlipidemia Expected: 12/02/2024, Expires: 11/07/2025 [facility] Work Phone: Comment on above: Expected: 12/02/2024, Expires: Start: 12-02-2024 End: 11-07-2025 Lipid 1996 panel - Serum or Plasma Lipid panel Lab Routine Mixed hyperlipidemia Expected: 12/02/2024, Expires: 11/07/2025 [facility] Comment on above: Expected: 12/02/2024, Expires: Start: 12-02-2024 End: 11-07-2025 Parathyrin.intact [Mass/volume] in Serum or Plasma PTH, intact Lab Routine Hyperparathyroidism (HCC) Expected: 12/02/2024, Expires: 11/07/2025 [facility] Comment on above: Expected: 12/02/2024, Expires: Start: 12-02-2024 End: 11-07-2025 Thyrotropin [Units/volume] in Serum or Plasma TSH Lab Routine Postoperative hypothyroidism Expected: 12/02/2024, Expires: 11/07/2025 [facility] Comment on above: Expected: 12/02/2024, Expires: Start: 12-02-2024 End: 11-07-2025 Thyroxine (T4) free [Mass/volume] in Serum or Plasma T4, free Lab Routine Postoperative hypothyroidism Expected: 12/02/2024, Expires: 11/07/2025 [facility] Comment on above: Expected: 12/02/2024, Expires: Start: 07-17-2024 End: 07-17-2024 Patient encounter procedure [facility] Start: 06-26-2024 Screening for malignant neoplasm of breast Mammogram [facility] Start: 06-11-2024 End: 06-11-2025 DXA Skeletal system Views for bone density DEXA bone density Imaging Routine Postmenopausal Osteoporosis screening Expected: 06/11/2024, Expires: 06/11/2025 [facility] Comment on above: Expected: 06/11/2024, Expires: Start: 06-11-2024 End: 08-09-2025 MG Breast - bilateral Screening Bilateral screening mammogram Imaging Routine Encounter for screening mammogram for malignant neoplasm of breast Expected: 06/11/2024, Expires: 08/09/2025 [facility] Work Phone: Comment on above: Expected: 06/11/2024, Expires: Start: 06-11-2024 End: 06-11-2024 Patient encounter procedure 06/11/2024 9:00 AM EST Office Visit [facility] [address] [place] [phone] Lisette Wooten, DO [address] [place] [address] [facility] Start: 2024 Respiratory Syncytial Virus Immunization: Risk, 60-74 Risk, or 75+ (1 - 1-dose 75+ series) Respiratory Syncytial Virus Immunization: Risk, 60-74 Risk, or 75+ (1 - 1-dose 75+ series) [facility] Start: 2024 End: 2024 Patient encounter procedure 2024 1:00 PM EST Office Visit [facility] [address] [place] [address] Clarice Robbins PA-C [address] [place] [address] [facility] Start: 05-13-2024 End: 05-13-2024 Patient encounter procedure 05/13/2024 11:30 AM EST Office Visit [facility] [address] [place] [phone] Jerzy Hodges, DO [address] [place] [address] [facility] Start: 05-10-2024 End: 05-10-2024 Patient encounter procedure 05/10/2024 8:15 AM EST Appointment [facility] [address] [place] [address] Jerzy Hodges, DO [address] [place] [address] [facility] Start: 05-09-2024 End: 05-09-2024 Patient encounter procedure 05/09/2024 10:30 AM EST Office Visit [facility] [address] [place] [address] Jerzy Hodges, DO [address] [facility] [place] [address] [facility] Start: 04-28-2024 History and physical examination, annual for health maintenance Wellness Visit [facility] Start: 04-28-2024 Medicare Annual Wellness (AWV) Medicare Annual Wellness (AWV) [facility] Start: 03-05-2024 End: 03-05-2024 Patient encounter procedure 03/05/2024 11:00 AM EST Office Visit [facility] [address] [place] [phone] Pérez Navarrete DO [address] [place] [address] [facility] Start: 02-29-2024 End: 02-29-2024 ambulatory 02/29/2024 11:00 AM EST Treatment [facility] [address] [place] [address] Sergey Bolden, PT [address] [place] [address] [facility] Start: 02-27-2024 End: 02-27-2024 ambulatory 02/27/2024 11:00 AM EST Treatment [facility] [address] [place] [address] Sergey Bolden, PT [address] [place] [address] [facility] Start: 02-22-2024 End: 02-22-2024 ambulatory 02/22/2024 11:00 AM EST Treatment [facility] [address] [place] [address] Sergey Bolden, PT [address] [place] [address] [facility] Start: 02-20-2024 End: 02-20-2024 ambulatory [facility] Comment on above: Arrived Start: 02-13-2024 End: 02-13-2024 ambulatory 02/13/2024 11:30 AM EDT Treatment [facility] [address] [place] [address] Sergey Bolden, PT [address] [place] [address] [facility] Start: 02-08-2024 End: 02-08-2024 ambulatory [facility] Comment on above: Arrived Start: 02-06-2024 End: 02-06-2024 ambulatory [facility] Comment on above: Arrived Start: 02-01-2024 End: 02-01-2024 ambulatory [facility] Comment on above: Arrived Start: 01-30-2024 End: 01-30-2024 ambulatory [facility] Comment on above: Right hip pain Start: 12-17-2023 COVID-19 Vaccine ( season) COVID-19 Vaccine () [facility] Start: 12-17-2023 COVID-19 Vaccine () COVID-19 Vaccine () [facility] Start: 12-17-2023 Influenza vaccination Influenza Vaccine (#1) [facility] Start: 12-08-2023 End: 12-07-2024 XR Hip - right 3 Views XR hip right 2 or 3 views Imaging Routine Right hip pain Expected: 12/08/2023, Expires: 12/07/2024 [facility] Work Phone: Comment on above: Expected: 12/08/2023, Expires: Start: 06-20-2018 Tetanus vaccination Tetanus: Every 10yrs [facility] Start: 2014 Fall risk assessment Falls Risk Assessment [facility] Start: 1999 Administration of herpes zoster vaccine Zoster Vaccines (1 of 2) [facility] Start: 1999 Pneumococcal Vaccine: Age 50+ (1 of 1 - PCV) Pneumococcal Vaccine: Age 50+ (1 of 1 - PCV) [facility] Start: 1999 Screening for malignant neoplasm of colon Flexible sigmoidoscopy [facility] Start: 1989 Screening for malignant neoplasm of breast Mammogram [facility] Start: 1967 Hepatitis C screening Hepatitis C Screening [facility] Start: 1961 Depression screening using PHQ-9 (Patient Health Questionnaire 9) score Depression Screening/Follow-Up (PHQ-2/9) [facility] Start: 1952 History and physical examination, annual for health maintenance Wellness Visit [facility] Start: 1952 Medicare Wellness Visit Medicare Wellness Visit [facility] Start: 1949 Screening for malignant neoplasm of colon [facility] Start: 1949 Screening for osteoporosis Dexa Scan [facility] Start: 1949 Tetanus vaccination Tetanus: Every 10yrs [facility] End: 09-19-2025 CT Guidance for injection of Sacroiliac joint - right XR Aspiration Injection Large Joint Right Imaging Routine Osteoarthritis of right hip, unspecified osteoarthritis type 1 Occurrences starting 09/19/2024 until 09/19/2025 [employer] Work Phone: Comment on above: 1 Occurrences starting 09/19/2024 until 09/19/2025 End: 05-09-2025 MR Hip - right WO contrast MR Hip Right Without Contrast Imaging Routine Right hip pain 1 Occurrences starting 05/09/2024 until 05/09/2025 [employer] Phone: Comment on above: 1 Occurrences starting 05/09/2024 until 05/09/2025 End: 2025 XR Cervical spine AP and Lateral XR Cervical Spine AP/LAT/FLEX/EXT Imaging Routine S/P cervical spinal fusion 1 Occurrences starting 2024 until 2025 [employer] Phone: Comment on above: 1 Occurrences starting 2024 until 2025 End: 05-13-2025 XR Lumbar spine 2 or 3 Views XR Lumbar Spine 2-3 Views (Standard) Imaging Routine Back pain, unspecified back location, unspecified back pain laterality, unspecified chronicity 1 Occurrences starting 05/13/2024 until 05/13/2025 [employer] Work Phone: Comment on above: 1 Occurrences starting 05/13/2024 until 05/13/2025 End: 05-06-2025 XR Pelvis and Hip - right 2 Views XR Hip Right With Pelvis 2-3 Views (Routine) Imaging Routine Right hip pain 1 Occurrences starting 05/06/2024 until 05/06/2025 [employer] Phone: Comment on above: 1 Occurrences starting 05/06/2024 until 05/06/2025 Immunizations Immunization Date Immunization Notes Care Provider Tracy allen 01-25-2024 influenza, seasonal, injectable Lisette Murcia-Mukesh DO Work Phone: [facility] Work Phone: 01-25-2024 influenza virus vacc ine, unspecified formulation Lisette Murcia-Mukesh DO Work Phone: [facility] 01-31-2023 Influenza, Seasonal, Quadrivalent, Adjuvanted Pérez Navarrete DO Work Phone: [facility] Work Phone: 01-31-2023 influenza virus vacc ine, unspecified formulation Pérez Navarrete DO Work Phone: [facility] 01-24-2022 Influenza, High-dose Seasonal, Quadrivalent, Preservative Free Pérez Navarrete DO Work Phone: [facility] 01-24-2022 influenza virus vacc ine, unspecified formulation Jerzy Hodges DO Work Phone: [facility] 02-05-2021 influenza, high dose seasonal, preservative-free Pérez Navarrete DO Work Phone: [facility] 07-07-2020 COVID-19 mRNA, Comir kelly (Pfizer) DO Lisette Murcia-Mukesh Work Phone: [facility] 06-15-2020 COVID-19 mRNA, Comir kelly (Pfizer) DO Lisette Murcia-[place] Work Phone: [facility] 02-22-2020 zoster vaccine recombinant Pérez Navarrete DO Work Phone: [facility] 01-10-2020 influenza, high dose seasonal, preservative-free Pérez Navarrete DO Work Phone: [facility] 11-27-2019 zoster vaccine recombinant Pérez Navarrete DO Work Phone: [facility] 11-14-2019 pneumococcal polysaccharide vaccine, 23 valent Pérez Navarrete DO Work Phone: [facility] 04-22-2019 influenza, injectabl e, madin yanira canine kidney, preservative free Pérez Navarrete DO Work Phone: [facility] 01-15-2018 Seasonal trivalent influenza vaccine, adjuvanted, preservative free Pérez Navarrete DO Work Phone: [facility] 01-18-2017 influenza, high dose seasonal, preservative-free Pérez Navarrete DO Work Phone: [facility] 08-05-2016 pneumococcal conjuga te vaccine, 13 valent Pérez Navarrete DO Work Phone: [facility] 02-11-2016 influenza, seasonal, injectable Pérez Navarrete DO Work Phone: [facility] 02-05-2015 influenza, seasonal, injectable, preservative free Pérez Navarrete DO Work Phone: [facility] 02-29-2012 seasonal influenza, intradermal, preservative free Péerz Navarrete DO Work Phone: [facility] 06-20-2008 tetanus and diphther ia toxoids, adsorbed, preservative free, for adult use (5 Lf of tetanus toxoid and 2 Lf of diphtheria toxoid) Pérez Navarrete DO Work Phone: [facility] Payers Date Payer Category Payer Self-pay [id number] 2024 Miscellaneous or Other [facility] LIFE (NO AUTO) [id number] 2022 Private Health Insurance [employer] [id number] 2022 Unknown [employer]ANCE [employer] [id number] 2022-Present [address] [address] [place] [address] [id number] [id number] 2022 Unknown [id number] 2014 Medicare [id number] 1959 Medicare [id number] 1959 Unknown [id number] 1949 Unknown [id number] 2.840.1.160318.3.579. 2.593 1949 Unknown [id number] .840.1.820311.3.579. 2.593 1949 Unknown [id number] 2.16840.1.665053.3.579. 2.1259 1949 Unknown [id number] .840.1.221516.3.579. 2.1259 1949 Unknown [id number] 2.16.840.1.548037.3.579. 2.1259 1949 Unknown [id number] 2.16.840.1.466506.3.579. 2.1259 1949 Unknown [id number] 2.16.840.1.587253.3.579. 2.1259 1949 Unknown [id number] 2.16.840.1.214953.3.579. 2.9 1949 Unknown [id number] 2.16.840.1.239402.3.579. 2.1258 1949 Unknown [id number] 2.16.840.1.506163.3.579. 2.1258 1949 Unknown [id number] 2.16.840.1.898415.3.579. 2.1258 1949 Unknown [id number] 2.16.840.1.662861.3.579. 2.1258 1949 Unknown [id number] 2.16.840.1.196436.3.579. 2.1258 1949 Unknown [id number] 2.16.840.1.618678.3.579. 2.1258 1949 Unknown [id number] 2.16.840.1.973971.3.579. 2.1258 1949 Unknown [id number] 2.16.840.1.555945.3.579. 2.1258 1949 Unknown [id number] 2.16.840.1.946253.3.579. 2. 1949 Unknown [id number] 2.16.840.1.816887.3.579. 2. 1949 Unknown [id number] 2.16.840.1.310154.3.579. 2. 1949 Unknown [id number] 2.16.840.1.813912.3.579. 2. 1949 Unknown [id number] 2.16.840.1.049297.3.579. 2. 1949 Unknown [id number] 2.16.840.1.388605.3.579. 2. 1949 Unknown [id number] 2.16.840.1.751558.3.579. 2.903 1949 Unknown [id number] 2.16.840.1.244785.3.579. 2.903 1949 Unknown [id number] 2.16.840.1.635172.3.579. 2.903 1949 Unknown [id number] 2.16.840.1.980582.3.579. 2.900 Private Health Insurance [facility] [id number] Unknown [id number] 2.16.840.1.870573.3.579. 2.531 Social History Date Type Detail Facility Start: 06-28-2021 End: 12-07-2022 Tobacco smoking status NHIS Never smoked tobacco (finding) [facility] Start: 1950 Sex Assigned At Female [facility] Start: 12-07-2022 End: 2024 Tobacco use and exposure Smokeless tobacco non-user [facility] Start: 01-23-2024 End: 10-31-2024 Alcoholic beverage intake Lifetime non-drinker (finding) [facility] Start: 06-09-2023 End: 12-08-2023 History of Social function [facility] Start: 06-09-2023 End: 12-08-2023 Alcohol Use Disorder Identification Test - Consumption [AUDIT-C] [facility] How often to you hav e a drink containing alcohol? Never [facility] How many standard dr inks containing alcohol do you have on a typical day? Patient does not drink [facility] Start: 12-07-2022 Alcohol Comment caffeine: coffee 2-3 cups a day [facility] Start: 1950 Sex assigned at Not on file [facility] Tobacco smoking stat us RIIS Tobacco smoking consumption unknown [facility] Start: 07-04-2024 Sex Female (finding) [facility] Clinical Notes 12-10-2023 to 11-07-2024 Telephone Encounter - Lisette Wooten, - 11/07/2024 4:57 PM EDTTelephone Encounter - Lisette Wooten, DO - 11/07/2024 4:57 PM EDTCJerzy mckee DO - 09/19/2024 12:53 PM EDT Note Date & Type Note Facility 11-07-2024 Telephone encounter Note Lab orders printed and mailed to patient [facility] 11-07-2024 Miscellaneous Notes Lab orders printed and mailed to patient documented in this encounter [facility] 09-19-2024 Note 09/19/24 Xiomara Blanco 1950 CHIEF COMPLAINT Right hip pain HISTORY Xiomara Blanco is a 74 y.o. year old female presents today for follow-up of her right hip. She states that she did see a spine doctor they gave her some exercises. She still getting a lot of pain about her hip. She is here to discuss options. REVIEW OF SYSTEMS 10 point ROS performed [...] webspace. 2+ DP and PT pulses. IMAGING No new imaging today IMPRESSION Right hip pain with mild to moderate osteoarthritis PLAN At this time we had a long discussion. We once again discussed the various treatment options for arthritis including risks and benefits. After explaining risk and benefits she did wish to proceed with a hip injection under fluoroscopy. Will put this referral in. I will plan to see her as needed otherwise. X-rays upon next visit:No. Jerzy Hodges DO Note: To expedite correspondence this note was generated by OrganizedWisdom recognition software. Some grammatical or spelling errors may occur using the system. AUTHENTICATED BY JERZY HODGES, ON 09/19/2024 13:19:41 [facility] 09-19-2024 History of Present illness Narrative 09/19/24 Xiomara Blanco 1950 CHIEF COMPLAINT Right hip pain HISTORY Xiomara Blanco is a 74 y.o. year old female presents today for follow-up of her right hip. She states that she did see a spine doctor they gave her some exercises. She still getting a lot of pain about her hip. She is here to discuss options. REVIEW OF SYSTEMS 10 point ROS performed [...] webspace. 2+ DP and PT pulses. IMAGING No new imaging today IMPRESSION Right hip pain with mild to moderate osteoarthritis PLAN At this time we had a long discussion. We once again discussed the various treatment options for arthritis including risks and benefits. After explaining risk and benefits she did wish to proceed with a hip injection under fluoroscopy. Will put this referral in. I will plan to see her as needed otherwise. X-rays upon next visit:No. Jerzy Hodges DO Note: To expedite correspondence this note was generated by OrganizedWisdom recognition software. Some grammatical or spelling errors may occur using the system. documented in this encounter [facility] 07-17-2024 Note Xiomara Blanco 1950 Impression/Plan: Problem List Items Addressed This Visit None Visit Diagnoses Lumbar radicular pain - Primary S/P cervical spinal fusion The patient reports improvement in her overall lower extremity symptoms since her last visit. She has maintained a regular home exercise program as directed by physical therapy which has aided in relief of her symptoms. She still occasionally will get pain into her right hip and down her right anterior thigh but has many days that her pain-free. She was encouraged to continue the anti-inflammatory as needed and continue daily her home exercise program. I would be happy to see her back should her symptoms worsen. Return if symptoms worsen or fail to improve. Clinical Findings: Xiomara Blanco is a 74 y.o. female person who is here for follow-up evaluation of right sided low back pain with radiculopathy. In the interim, Xiomara has been evaluated by physical therapy and ultimately recommended to do a PT guided home exercise program. She has worked on these exercises daily since her last visit in April and notes a decrease overall in her symptoms. She finds that she will have days that are completely pain-free but when the weather is cold and wet, she notices more stiffness and discomfort. Her pain continues to be in the right back and groin region occasionally radiating to her right anterior thigh. She has continue the meloxicam. She is pleased with her progress, she now is able to sit stand and kneel in sabianist where prior she was only able to sit. She feels functionally much improved. She denies saddle anesthesias, urinary retention, bowel incontinence. She denies pain in her neck or upper extremity symptoms. From my prior note She had an injury in October 2023 [...] history of a cervical fusion, unknown levels. History reviewed. No pertinent past medical history. There is no problem list on file for this patient. @ MEDPAT@ Allergies Allergen Reactions Amantadine Other (See Comments) Other Reaction(s): constipation Diclofenac Other (See Comments) Flushing/sore mouth/puffiness in face Other Reaction(s): flushing/sore mouth/puffiness in face Other Reaction(s): Redness of Skin Acetylcysteine Rash Other Reaction(s): skin rash/when touches hands Past Surgical History: Procedure Laterality Date CT [...] MA note is reviewed. Physical Exam VS: Height: 5' 5 (patient reported) , Weight: 83.9 kg (185 lb) (patient reported) , Body mass index is 30.79 kg/m ., BP: 105/69 Appearance: Well kept, normally developed Psych: Alert, normal mood and affect Eyes: Anicteric Cardiovascular: No lower extremity edema, extremities warm Respiratory: Breathing unlabored Skin: no rashes Musculoskeletal: grossly intact motor strength bilateral with hip flexion, knee extension, ankle plantar and dorsiflexion and EHL extension at 5/5. UE motor exam is strong and symmetric at 5/5 bilaterally (more content not included)... [facility] 07-17-2024 History of Present illness Narrative Xiomara Blanco 1950 Impression/Plan: Problem List Items Addressed This Visit None Visit Diagnoses Lumbar radicular pain - Primary S/P cervical spinal fusion The patient reports improvement in her overall lower extremity symptoms since her last visit. She has maintained a regular home exercise program as directed by physical therapy which has aided in relief of her symptoms. She still occasionally will get pain into her right hip and down her right anterior thigh but has many days that her pain-free. She was encouraged to continue the anti-inflammatory as needed and continue daily her home exercise program. I would be happy to see her back should her symptoms worsen. Return if symptoms worsen or fail to improve. Clinical Findings: Xiomara Blanco is a 74 y.o. female person who is here for follow-up evaluation of right sided low back pain with radiculopathy. In the interim, Xiomara has been evaluated by physical therapy and ultimately recommended to do a PT guided home exercise program. She has worked on these exercises daily since her last visit in April and notes a decrease overall in her symptoms. She finds that she will have days that are completely pain-free but when the weather is cold and wet, she notices more stiffness and discomfort. Her pain continues to be in the right back and groin region occasionally radiating to her right anterior thigh. She has continue the meloxicam. She is pleased with her progress, she now is able to sit stand and kneel in sabianist where prior she was only able to sit. She feels functionally much improved. She denies saddle anesthesias, urinary retention, bowel incontinence. She denies pain in her neck or upper extremity symptoms. From my prior note She had an injury in October 2023 [...] history of a cervical fusion, unknown levels. History reviewed. No pertinent past medical history. There is no problem list on file for this patient. @ MEDPAT@ Allergies Allergen Reactions Amantadine Other (See Comments) Other Reaction(s): constipation Diclofenac Other (See Comments) Flushing/sore mouth/puffiness in face Other Reaction(s): flushing/sore mouth/puffiness in face Other Reaction(s): Redness of Skin Acetylcysteine Rash Other Reaction(s): skin rash/when touches hands Past Surgical History: Procedure Laterality Date CT [...] MA note is reviewed. Physical Exam VS: Height: 5' 5 (patient reported) , Weight: 83.9 kg (185 lb) (patient reported) , Body mass index is 30.79 kg/m ., BP: 105/69 Appearance: Well kept, normally developed Psych: Alert, normal mood and affect Eyes: Anicteric Cardiovascular: No lower extremity edema, extremities warm Respiratory: Breathing unlabored Skin: no rashes Musculoskeletal: grossly intact motor strength bilateral with hip flexion, knee extension, ankle plantar and dorsiflexion and EHL extension at 5/5. UE motor exam is strong and symmetric at 5/5 bilaterally Neurologic: Sensation intact to light touch bilateral L2-S1. Reflexes are 2+ patella and ankle bilaterally. No clonus. Gait/Station: slow and cautious walking Global sagittal and coronal balance are within normal limits. Skin on the lower back is healthy with no rashes, lesions or surgical scars. No excessive kyphosis or scoliosis. Bilateral lower extremities are well perfused with no signs of DVT. Imaging: X-ray cervical spine flex extend: 07/17/2024 My review the images: Prior ACDF C5-6 without evidence of hardware complications The report: IMPRESSION: 1. There is no evidence for instability with flexion or extension. 2. Previous discectomy and fusion at C5-6 without complication. 3. Mild cervical spondylosis. Historical images X-ray lumbar spine 05/22/24 - My interpretation: [...] at L5-S1. Clarice Robbins PA-C Spine Surgery [facility] documented in this encounter [facility] 07-08-2024 Telephone encounter Note Called and notified the patient. [facility] 07-08-2024 Miscellaneous Notes Called and notified the patient. Patient called states Meloxicam is really helping her. She is requesting a refill be sent to [facility] In [place]. RX pended. documented in this encounter [facility] 07-08-2024 Telephone encounter Note Patient called states Meloxicam is really helping her. She is requesting a refill be sent to [facility] In [place]. RX pended. [facility] 06-11-2024 History of Present illness Narrative Associated Problem(s): Class 1 obesity -Obesity is a term that means you have a body mass index (BMI) of 30 or higher. Obesity increases your risk of many conditions. Of major concern is that your risk of heart disease is increased. Of particular concern is that a [place] Heart Study analysis concluded that, after other [...] have a flu vaccine on 01/25/24 at [facility]- updated EHR. She will be due for a MMG after 06/26/24 and last had it done at [facility]. She last had a DEXA done on 05/28/20. T-scores were normal at that time. She has seen Ortho (First Dr Navarrete [facility] and then Dr Hodges with [facility]). Dr Navarrete recommended PT and possible steroid injection. She [...] Multiple Vitamin (multivitamin) capsule 1 capsule, Daily Saint Elmo-3 Fatty Acids (Fish Oil) 1200 MG capsule [...] her hip. She went to PT (at [facility]), but did not feel this helped much. Dr Navarrete has recommended cortisone injection- but she did not want to do. -She saw another Ortho provider at [facility] and they did MRI. Advised PT, cortisone injection and to see spine provider. She saw the spine TRAINING OFFICER and they started meloxicam and she continued with PT (at [facility]). She is seeing improvement Skin: Positive for [...] (CMS/HCC) - Primary Overview Prescribed atorvastatin 10/2023: RN=613; HDL=57; ZM=315; LDL=85; TC/HDL=2.9 Current Assessment & Plan -Lipids [...] these risks can be reduced. Postoperative hypothyroidism (CMS/HCC) Overview Prescribed levothyroxine 50 mcg 10/2023: TSH=2.196; [...] 6 months (around 12/09/2024) for MW with TRAINING OFFICER and routine appt with me; sooner if any acute issues. Lisette Wooten D.O. Board Certified Rn Sane documented in this encounter [facility] 2024 Note Xiomara Blanco 1950 Impression/Plan: Problem List Items Addressed This Visit None Visit Diagnoses Lumbar radicular pain - Primary Relevant Medications meloxicam (MOBIC) 15 MG tablet Other Relevant Orders Ambulatory Ref to [facility] (PT/OT/ST) Osteoarthritis of right hip, unspecified [...] normally developed Psy (more content not included)... [facility] 2024 History of Present illness Narrative Xiomara Blanco 1950 Impression/Plan: Problem List Items Addressed This Visit None Visit Diagnoses Lumbar radicular pain - Primary Relevant Medications meloxicam (MOBIC) 15 MG tablet Other Relevant Orders Ambulatory Ref to [facility] (PT/OT/ST) Osteoarthritis of right hip, unspecified [...] report: pending Clarice Robbins PA-C Spine Surgery [facility] documented in this encounter [facility] 2024 History of Present illness Narrative Xiomara Blanco 1950 Impression/Plan: Problem List Items Addressed This Visit None Visit Diagnoses Lumbar radicular pain - Primary Relevant Medications meloxicam (MOBIC) 15 MG tablet Other Relevant Orders Ambulatory Ref to [facility] (PT/OT/ST) Osteoarthritis of right hip, unspecified [...] at L5-S1. Clarice Robbins PA-C Spine Surgery [facility] documented in this encounter [facility] 2024 Instructions Clarice Robbins PA-C - 2024 [...] include stationary bicycling, outdoor bicycling, an elliptical stress test technician, or swimming. Swimming is often the best [...] front of you at the same time. Jerw-hc-[id number] exercise Lie on your back with your [...] Log into your personal health record on [email or web address] and enter [id number] in the Education box to learn more about Low Back Pain: Exercises. Current as of: September 05, 2014 Content Version: 10.6 7379-3503 [employer]. Care instructions adapted under license by your healthcare professional. If you have questions about a medical condition or this instruction, always ask your healthcare professional. [employer] disclaims any warranty or liability for your use of this information. documented in this encounter [facility] 05-13-2024 Note 05/13/24 Xiomara Blanco 1950 CHIEF [...] expedite correspondence this note was generated by OrganizedWisdom recognition software. Some grammatical or spelling errors may occur using the system. AUTHENTICATED BY JERZY HODGES, ON 05/13/2024 11:26:13 [facility] 05-13-2024 History of Present illness [...] expedite correspondence this note was generated by Clickyreserva voice recognition software. Some grammatical or spelling errors may occur using the system. documented in this encounter [facility] 05-09-2024 Note 05/09/24 Xiomara Blanco 1950 CHIEF [...] expedite correspondence this note was generated by [employer] voice recognition software. Some grammatical or spelling errors may occur using the system. AUTHENTICATED BY JERZY HODGES, ON 05/09/2024 11:09:20 [facility] 05-09-2024 History of Present illness [...] expedite correspondence this note was generated by [employer] voice recognition software. Some grammatical or spelling errors may occur using the system. documented in this encounter [facility] 03-05-2024 History of Present illness Narrative Images [...] 50 MCG (1999 UT) tablet 1 tablet, Oral, Every 24 hours clotrimazole-betamethasone (Lotrisone) cream Topical, 2 times daily ibuprofen 800 mg, Oral, Every 8 hours PRN levothyroxine (SYNTHROID, LEVOXYL) 50 mcg, Oral, Daily Multiple Vitamin (multivitamin) capsule 1 capsule, Oral, Daily Saint Elmo-3 Fatty Acids (Fish Oil) 1200 MG capsule [...] no diagnoses linked to this encounter. Pérez Navarrete D.O. Attestation This note was created using voice recognition through Code[employer]. documented in this encounter [facility] 02-27-2024 History of Present illness Narrative [...] to be instructed in home exercise program. Alf Goals: To be met in 10 weeks [...] sign below. Date: documented in this encounter [facility] 02-22-2024 History of Present illness Narrative [...] to be instructed in home exercise program. Alf Goals: To be met in 10 weeks [...] sign below. Date: documented in this encounter [facility] 02-20-2024 History of Present illness Narrative [...] to be instructed in home exercise program. Coal Shooter Goals: To be met in 10 weeks [...] sign below. Date: documented in this encounter [facility] 02-08-2024 History of Present illness Narrative [...] to be instructed in home exercise program. Coal Shooter Goals: To be met in 10 weeks [...] sign below. Date: documented in this encounter [facility] 02-06-2024 History of Present illness Narrative [...] to be instructed in home exercise program. Coal Shooter Goals: To be met in 10 weeks [...] sign below. Date: documented in this encounter [facility] 02-01-2024 History of Present illness Narrative [...] to be instructed in home exercise program. Coal Shooter Goals: To be met in 10 weeks [...] sign below. Date: documented in this encounter [facility] 01-23-2024 History of Present illness Narrative Images from the original note were not included. @ASHWIN Blanco is a 73 y.o. female who [...] and cold and heat packs. She takes gaju-tjz-aoawenr fish oil and makes efforts to maintain [...] Vitamin (multivitamin) capsule 1 capsule, Oral, Daily Saint Elmo-3 Fatty Acids (Fish Oil) 1200 MG capsule [...] Ambulatory referral to Physical Therapy; Future Pérez Navarrete D.O. Attestation This note was created using voice recognition through Code[employer]. documented in this encounter [facility] 12-10-2023 History of Present illness Narrative [...] increased. Of particular concern is that a [place] Heart Study analysis concluded that, after other [...] and compliance with any prescribed medication for residential management/control of lipids. 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 sees regular nail tech/supervisor product inspection Hearing Screening: (Pt denies any difficulty hearing) [...] [facility] CMP (CMP) (FOR REMOTE [facility] USE) Collection Time: 10/17/23 8:18 AM Result Value Ref Range SODIUM 142 136 - 145 mmol/L POTASSIUM 3.7 3.5 - 5.1 mmol/L CHLORIDE 106 98 - 107 mmol/L CARBON DIOXIDE 25.8 21.0 - 32.0 mmol/L ANION GAP 13.9 GLUCOSE 99 74 - 106 mg/dL BLOOD UREA NITROGEN 12.0 7.0 - 18.0 mg/dL CREATININE 0.73 0.55 - 1.02 mg/dL [facility] EGFR-AF URUGUAYAN >60 >=60 [facility] EGFR-NON AF URUGUAYAN >60 >=60 BUN CREATININE RATIO 16.4 CALCIUM [...] STIMULATING HORMONE 2.196 0.358 - 3.740 uIU/mL [facility] VITAMIN D 25 [place] Collection Time: 10/17/23 [...] Items Addressed This Visit Mixed hyperlipidemia (CMS/HCC) Overview Prescribed atorvastatin 10/2023: TQ=239; HDL=57; MO=691; LDL=85; TC/HDL=2.9 Current Assessment & Plan Lipids look good/at goals -Reinforced importance of dietary modification, regular cardiovascular activity and compliance with any prescribed medication for residential management/control of lipids. High cholesterol (especially LDL) is associated with an elevated risk of cardiovascular disease. This includes coronary artery disease. stroke and peripheral vascular disease. High cholesterol has also been linked to diabetes and high blood pressure risks. By appropriately treating LDL, these risks can be reduced. Postoperative hypothyroidism ([facility]) Overview Prescribed levothyroxine 50 mcg 10/2023: TSH=2.196; [...] advised she could F/U as needed. Hyperparathyroidism ([facility]) Overview 10/2023: PTH=17 Genitourinary syndrome of menopause [...] increased. Of particular concern is that a [place] Heart Study analysis concluded that, after other [...] as sx have not been improving with specialist wound care and exercised she has already been advised [...] acute issues. Lisette Wooten DO Board Certified Rn Sane documented in this encounter [facility] Evaluation note No assessment inform ation available [facility] Work Phone: Evaluation note Diagnosis Right hip pain- Primary Pain in joint, pelvic region and thigh documented in this encounter [facility]* [...] of right hip documented in this encounter [facility] note* Diagnosis Medicare annual wellness visit, [...] of right hip documented in this encounter [facility]* Diagnosis Medicare annual wellness [...] of right hip documented in this encounter [facility]* Diagnosis Medicare annual wellness [...] of right hip documented in this encounter [facility] note* Diagnosis Medicare annual wellness visit, [...] unspecified BMI 30.0-30.9,adult documented in this encounter [facility]* Diagnosis Right hip pain- Primary [...] status (age-related) (natural) documented in this encounter [facility]* Diagnosis Lumbar radicular pain Thoracic or lumbosacral neuritis or radiculitis, unspecified [facility] Diagnosis Lumbar radicular pain- Primary Thoracic or lumbosacral neuritis or radiculitis, unspecified S/P cervical spinal fusion Arthrodesis status [facility] Diagnosis Osteoarthritis of right hip, unspecified osteoarthritis type- Primary [facility] Diagnosis Medicare annual wellness visit, subsequent- Primary ACP (advance care planning) Other specified counseling Mixed hyperlipidemia Mixed hyperlipidemia Postoperative hypothyroidism Postsurgical hypothyroidism Hyperparathyroidism (HCC) Hyperparathyroidism, unspecified Vitamin D deficiency, unspecified Adenomatous polyp of colon, unspecified part of colon Neck stiffness Torticollis, unspecified Class 1 obesity Essential tremor BMI 30.0-30.9,adult Mixed hyperlipidemia- Primary Mixed hyperlipidemia Postoperative hypothyroidism Postsurgical hypothyroidism Vitamin D deficiency, unspecified Hyperparathyroidism (HCC) Hyperparathyroidism, unspecified Class 1 obesity Medicare annual wellness visit, subsequent- Primary ACP (advance care planning) Other specified counseling Right hip pain Pain in joint, pelvic region and thigh Greater trochanteric bursitis of right hip Rash and nonspecific skin eruption Rash and other nonspecific skin eruption Mixed hyperlipidemia Mixed hyperlipidemia Postoperative hypothyroidism Postsurgical hypothyroidism Class 1 obesity Essential tremor Genitourinary syndrome of menopause Hyperparathyroidism (HCC) Hyperparathyroidism, unspecified Sleep pattern disturbance Vitamin D deficiency, unspecified BMI 30.0-30.9,adult Mixed hyperlipidemia- Primary Mixed hyperlipidemia Postoperative hypothyroidism Postsurgical hypothyroidism Arthritis of right hip Vitamin D deficiency Encounter for screening mammogram for malignant neoplasm of breast Arthritis, lumbar spine Osteoporosis screening Special screening for osteoporosis Postmenopausal Asymptomatic postmenopausal status (age-related) (natural) Mixed hyperlipidemia- Primary Mixed hyperlipidemia Postoperative hypothyroidism Postsurgical hypothyroidism Vitamin D deficiency Hyperparathyroidism (HCC) Hyperparathyroidism, unspecified [facility] Consultation (Routine) - Authorized Specialty Diagnoses / Procedures Referred By Donato t Referred To Contact Physical Therapy Diagnoses Right hip pain Procedures NE OFFICE/OUTPATIENT NEW HIGH MDM 60 MINUTES Pérez Navarrete, DO [address] [place] [address] Sergey Bolden, PT [address] [facility] [address] [place] [address] Referral ID Status Reason Start Date Expiration Date Visits Requested Visits Authorized [id number] Authorized Consult and Treat 01/23/2024 07/21/2024 10 [facility] Narrative* Consultation (Routine) - Authorized Specialty Diagnoses / Procedures Referred By Contac t Referred To Contact Physical Therapy Diagnoses Right hip pain Procedures NE OFFICE/OUTPATIENT NEW HIGH MDM 60 MINUTES Pérez Navarrete, DO [address] [place] [address] Phone: tel: fax: Sergey Bolden, PT 112 [facility] [address] [place] [address] Phone: tel: fax: Referral ID Status Reason Start Date Expiration Date Visits Requested Visits Authorized [id number] Authorized Consult and Treat 01/23/2024 07/21/2024 10 10 [facility] for visit Narrative* Consultation (Routine) - Authorized Specialty Diagnoses / Procedures Referred By Contac t Referred To Contact Physical Therapy Diagnoses Right hip pain Procedures NE OFFICE/OUTPATIENT NEW HIGH MDM 60 MINUTES Pérez Navarrete DO [address] [place] [address] Phone: tel: fax: Sergey Bolden, PT [address] [address] Phone: tel: fax: Referral ID Status Reason Start Date Expiration Date Visits Requested Visits Authorized [id number] Authorized Consult and Treat 01/23/2024 07/21/2024 30 30 [facility] HealthcareReason for visit Narrative* Consultation (Routine) - Closed Specialty Diagnoses / Procedures Referred By Contac t Referred To Contact Physical Therapy Diagnoses Right hip pain Procedures NE OFFICE/OUTPATIENT NEW HIGH MDM 60 MINUTES Pérez Navarrete, DO [address] [facility] [place] [address] Phone: tel: fax: Sergey Bolden, PT [address] [address] Phone: tel: fax: Referral ID Status Reason Start Date Expiration Date V isits Requested Visits Authorized [id number] Closed Consult and Treat 01/23/2024 07/21/2024 30 30 [facility] Healthcare Summary Purpose Family History Relationship Condition Age at Onset Recorded Date/T radha father Myocardial infarction Unknown Not Specified Lymphoma Unknown sister Rheumatoid arthritis Unknown brother Rheumatoid arthritis Unknown brother Malignant neoplasm of urinary bladder Unk nown sister Hypothyroidism Unknown Relationship Condition Age at Onset Recorded Date/T radha father Myocardial infarction Unknown mother Lymphoma Unknown sister Rheumatoid arthritis Unknown brother Rheumatoid arthritis Unknown brother Malignant neoplasm of urinary bladder Unk nown sister Hypothyroidism Unknown brother Malignant neoplasm Unknown Heart disease Unknown Unknown Advance Directives Advance Directive Response Recorded Date/ Time Advance Directives No March 9:13am Date Activated Date Inactivated Comments 12/08/2022 10:40 AM Date Activated Date Inactivated Comments 12/08/2022 10:40 AM Documents on File Type Date Recorded 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 Advance Directives and Livin g Will 05/10/2024 7:59 AM Documents on File Type Date Recorded 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 Advance Directives and Livin g Will 05/10/2024 7:59 AM Advance Directive Response Recorded Date/ Time Advance Directives No March 10:13am Chief Complaint and Reason for Visit Chief Complaint Z12.31 Chief Complaint Admit Date Z12.31 July 03, 2024 12: 23pm Additional Source Comments INFORMATION SOURCE (unrecogn ized section and content) DATE CREATED AUTHOR 05/30/2022 [facility] DATE CREATED AUTHOR AUTHOR'S ORGANIZ ATION 06/12/2024 [facility] EPIC DATE CREATED AUTHOR AUTHOR'S ORGANIZ ATION 07/05/2024 [facility] DATE CREATED AUTHOR AUTHOR'S ORGANIZ ATION 07/23/2024 [facility] DATE CREATED AUTHOR AUTHOR'S ORGANIZ ATION 09/20/2024 [facility] DATE CREATED AUTHOR AUTHOR'S ORGANIZ ATION 10/03/2024 [facility] Care Teams (unrecognized sec tion and content) Team Status: Active Member Role Status Dates Lisette Wooten DO Primary Care Provider Active Team Status: Inactive Member Role Status Dates Lisette Wooten DO Primary Care Provider, Attend ing Provider Active [employer] Pcb Designer Relationship Specialty Start Date End Date Lisette Wooten DO [address] [place] [address] PCP - ACO Reach 09/08/22 Lisette Wooten DO [address] [place] [address] PCP - General Internal Medicine 08/23/22 Shanon Lobo LPN Licensed Practical Nurse Family Medicine 12/07/22 Nela Alfredo MD [address] [facility] 1 [place] [address] Consulting Physician Dermatology 12/07/22 Jacqueline Ramos MD [address] [place] [address] Consulting Physician Neurology 12/07/22 Jae Seymour MD [address] [place] [address] Referring Physician Ophthalmology 12/08/22 Blaise Heredia, DO [address] [place] [address] Referring Physician Obstetrics and Gynecology 12/08/22 Magaly Douglass Ophthalmology 04/17/22 [employer] Circuit [employer] Pcb Designer Relationship Specialty Start Date End Date Lisette Wooten, DO [address] [place] [address] PCP - ACO Reach 09/08/22 Lisette Wooten DO [address] [place] [address] PCP - General Internal Medicine 08/23/22 Shanon Lobo LPN Licensed Practical Nurse Family Medicine 12/07/22 Nela Alfredo MD [address] [address] Consulting Physician Dermatology 12/07/22 Jacqueline Ramos MD [address] [place] [address] Consulting Physician Neurology 12/07/22 Jae Seymour MD [address] [place] [address] Referring Physician Ophthalmology 12/08/22 Blaise Heredia, DO [address] [place] [address] Referring Physician Obstetrics and Gynecology 12/08/22 Magaly Douglass Ophthalmology 04/17/22 [employer] Circuit Board Pcb Designer Relationship Specialty Start Date End Date Lisette Wooten, DO [address] [place] [address] PCP - ACO Reach 09/08/22 Lisette Wooten, DO [address] [place] [address] PCP - General Internal Medicine 08/23/22 Shanon Lobo LPN Licensed Practical Nurse Family Medicine 12/07/22 Nela Alfredo MD [address] [address] Consulting Physician Dermatology 12/07/22 Jacqueline Ramos MD [address] [place] [address] Consulting Physician Neurology 12/07/22 Jae Seymour MD [address] [place] [address] Referring Physician Ophthalmology 12/08/22 Blaise Heredia, DO [address] [place] [address] Referring Physician Obstetrics and Gynecology 12/08/22 Magaly Douglass Ophthalmology 04/17/22 Printed Circuit Board Pcb Designer Relationship Specialty Start Date End Date Lisette Wooten, [address] [place] [address] PCP - ACO Reach 09/08/22 Lisette Wooten DO [address] [place] [address] PCP - General Internal Medicine 08/23/22 Shanon Lobo LPN Licensed Practical Nurse Family Medicine 12/07/22 Nela Alfredo MD [address] [address] Consulting Physician Dermatology 12/07/22 Jacqueline Ramos MD [address] [place] [address] Consulting Physician Neurology 12/07/22 Jae Seymour MD [address] [place] [address] Referring Physician Ophthalmology 12/08/22 Blaise Heredia DO [address] [place] [address] Referring Physician Obstetrics and Gynecology 12/08/22 Magaly Douglass Ophthalmology 04/17/22 Printed Circuit Board Pcb Designer Relationship Specialty Start Date End Date Lisette Wooten DO [address] [place] [address] PCP - ACO Reach 09/08/22 Lisette Wooten DO [address] [place] [address] PCP - General Internal Medicine 08/23/22 Shanon Lobo LPN Licensed Practical Nurse Family Medicine 12/07/22 Nela Alfredo MD [address] [address] Consulting Physician Dermatology 12/07/22 Jacqueline Ramos MD [address] [place] [address] Consulting Physician Neurology 12/07/22 Jae Seymour MD [address] [place] [address] Referring Physician Ophthalmology 12/08/22 Blaise Heredia, DO [address] [place] [address] Referring Physician Obstetrics and Gynecology 12/08/22 Magaly Douglass Ophthalmology 04/17/22 Printed Circuit Board Pcb Designer Relationship Specialty Start Date End Date Lisette Wooten DO [address] [place] [address] PCP - ACO Reach 09/08/22 Lisette Wooten DO [address] [place] [address] PCP - General Internal Medicine 08/23/22 Shanon Lobo LPN Licensed Practical Nurse Family Medicine 12/07/22 Nela Alfredo MD [address] [facility] 1 [place] [address] Consulting Physician Dermatology 12/07/22 Jacqueline Ramos MD [address] [place] [address] Consulting Physician Neurology 12/07/22 Jae Seymour MD [address] [place] [address] Referring Physician Ophthalmology 12/08/22 Blaise Heredia, DO [address] [place] [address] Referring Physician Obstetrics and Gynecology 12/08/22 Magaly Douglass Ophthalmology 04/17/22 Printed Circuit Board Pcb Designer Relationship Specialty Start Date End Date Lisette Wooten, DO [address] [place] [address] PCP - ACO Reach 09/08/22 Lisette Wooten, DO [address] [place] [address] PCP - General Internal Medicine 08/23/22 Shanon Lobo LPN Licensed Practical Nurse Family Medicine 12/07/22 Nela Alfredo MD [address] [address] Consulting Physician Dermatology 12/07/22 Jacqueline Ramos MD [address] [place] [address] Consulting Physician Neurology 12/07/22 Jae Seymour MD [address] [place] [address] Referring Physician Ophthalmology 12/08/22 Blaise Heredia, DO [address] [place] [address] Referring Physician Obstetrics and Gynecology 12/08/22 Magaly Douglass Ophthalmology 04/17/22 Printed Circuit Board Pcb Designer Relationship Specialty Start Date End Date Lisette Wooten, DO [address] [place] [address] PCP - ACO Reach 09/08/22 Lisette Wooten, DO [address] [place] [address] PCP - General Internal Medicine 08/23/22 Shanon Lobo LPN Licensed Practical Nurse Family Medicine 12/07/22 Nela Alfredo MD [address] [address] Consulting Physician Dermatology 12/07/22 Jacqueline Ramos MD [address] [place] [address] Consulting Physician Neurology 12/07/22 Jae Seymour MD [address] [place] [address] Referring Physician Ophthalmology 12/08/22 Blaise Heredia, DO [address] [place] [address] Referring Physician Obstetrics and Gynecology 12/08/22 Magaly Douglass Ophthalmology 04/17/22 Printed Circuit Board Pcb Designer Relationship Specialty Start Date End Date Lisette Wooten, DO [address] [place] [address] PCP - ACO Reach 09/08/22 Lisette Wooten, DO [address] [place] [address] PCP - General Internal Medicine 08/23/22 Shanon Lobo LPN Licensed Practical Nurse Family Medicine 12/07/22 Nela Alfredo MD [address] [facility] 1 [place] [address] Consulting Physician Dermatology 12/07/22 Jacqueline Ramos MD [address] [place] [address] Consulting Physician Neurology 12/07/22 Jae Seymour MD [address] [place] [address] Referring Physician Ophthalmology 12/08/22 Blaise Heredia DO [address] [place] [address] Referring Physician Obstetrics and Gynecology 12/08/22 Magaly Douglass Ophthalmology 04/17/22 Printed Circuit Board Pcb Designer Relationship Specialty Start Date End Date Lisette Wooten DO [address] [place] [address] PCP - ACO Reach 09/08/22 Lisette Wooten DO [address] [place] [address] PCP - General Internal Medicine 08/23/22 Shanon Lobo LPN Licensed Practical Nurse Family Medicine 12/07/22 Nela Alfredo MD [address] [facility] 1 [place] [address] Consulting Physician Dermatology 12/07/22 Jacqueline Ramos MD [address] [place] [address] Consulting Physician Neurology 12/07/22 Jae Seymour MD [address] [place] [address] Referring Physician Ophthalmology 12/08/22 Blaise Heredia DO [address] [place] [address] Referring Physician Obstetrics and Gynecology 12/08/22 Magaly Douglass Ophthalmology 04/17/22 Printed Circuit Board Pcb Designer Relationship Specialty Start Date End Date Lisette Wooten DO [address] [place] [address] PCP - ACO Reach 09/08/22 Lisette Wooten DO [address] [facility] [address] [place] [address] PCP - General Internal Medicine 08/23/22 Shanon Lobo LPN Licensed Practical Nurse Family Medicine 12/07/22 Nela Alfredo MD [address] [address] Consulting Physician Dermatology 12/07/22 Jacqueline Ramos MD [address] [place] [address] Consulting Physician Neurology 12/07/22 Jae Seymour MD [address] [place] [address] Referring Physician Ophthalmology 12/08/22 Blaise Heredia, DO [address] [place] [address] Referring Physician Obstetrics and Gynecology 12/08/22 Magaly Douglass Ophthalmology 04/17/22 Printed Circuit Board Pcb Designer Relationship Specialty Start Date End Date Lisette Wooten, DO [address] [place] [address] PCP - ACO Reach 09/08/22 Lisette Wooten DO [address] [place] [address] PCP - General Internal Medicine 08/23/22 Shanon oLbo LPN Licensed Practical Nurse Family Medicine 12/07/22 Nela Alfredo MD [address] [address] Consulting Physician Dermatology 12/07/22 Jacqueline Ramos MD [address] [place] [address] Consulting Physician Neurology 12/07/22 [place] [address] [place] [address] Referring Physician Ophthalmology 12/08/22 Blaise Heredia, DO [address] [place] [address] Referring Physician Obstetrics and Gynecology 12/08/22 Magaly Douglass Ophthalmology 04/17/22 Printed Circuit Board Pcb Designer Relationship Specialty Start Date End Date Lisette Wooten, DO [address] [place] [address] PCP - ACO Reach 09/08/22 Lisette Wooten, DO [address] [place] [address] PCP - General Internal Medicine 08/23/22 Shanon Lobo LPN Licensed Practical Nurse Family Medicine 12/07/22 Nela Alfredo MD [address] [address] Consulting Physician Dermatology 12/07/22 Jacqueline Ramos MD [address] [place] [address] Consulting Physician Neurology 12/07/22 Jae Seymour MD [address] [place] [address] Referring Physician Ophthalmology 12/08/22 Blaise Heredia, DO [address] [place] [address] Referring Physician Obstetrics and Gynecology 12/08/22 Magaly Douglass Ophthalmology 04/17/22 Printed Circuit Board Pcb Designer Relationship Specialty Start Date End Date Lisette Wooten, DO [address] [place] [address] PCP - ACO Reach 09/08/22 Lisette Wooten, DO [address] [place] [address] PCP - General Internal Medicine 08/23/22 Shanon Lobo LPN Licensed Practical Nurse Family Medicine 12/07/22 Nela Alfredo MD [address] [facility] 1 [place] [address] Consulting Physician Dermatology 12/07/22 Jacqueline Ramos MD [address] [place] [address] Consulting Physician Neurology 12/07/22 Jae Seymour MD [address] [place] [address] Referring Physician Ophthalmology 12/08/22 Blaise Heredia DO [address] [place] [address] Referring Physician Obstetrics and Gynecology 12/08/22 Magaly Douglass Ophthalmology 04/17/22 Printed Circuit Board Pcb Designer Relationship Specialty Start Date End Date Lisette Wooten DO [address] [place] [address] PCP - ACO Reach 09/08/22 Lisette Wooten DO [address] [place] [address] PCP - General Internal Medicine 08/23/22 Shanon Lobo LPN Licensed Practical Nurse Family Medicine 12/07/22 Nela Alfredo MD [address] [facility] 1 [place] [address] Consulting Physician Dermatology 12/07/22 Jacqueline Ramos MD [address] [place] [address] Consulting Physician Neurology 12/07/22 Jae Seymour MD [address] [place] [address] Referring Physician Ophthalmology 12/08/22 Blaise Heredia DO [address] [place] [address] Referring Physician Obstetrics and Gynecology 12/08/22 Magayl Douglass Ophthalmology 04/17/22 Printed Circuit Board Pcb Designer Relationship Specialty Start Date End Date Lisette Wooten DO [address] [place] [address] PCP - ACO Reach 09/08/22 Lisette Wooten DO [address] [place] [address] PCP - General Internal Medicine 08/23/22 Shanon Lobo LPN Licensed Practical Nurse Family Medicine 12/07/22 Nela Alfredo MD [address] [address] Consulting Physician Dermatology 12/07/22 Jacqueline Ramos MD [address] [place] [address] Consulting Physician Neurology 12/07/22 Jae Seymour MD [address] [place] [address] Referring Physician Ophthalmology 12/08/22 Blaise Heredia, DO [address] [place] [address] Referring Physician Obstetrics and Gynecology 12/08/22 Magaly Douglass Ophthalmology 04/17/22 Printed Circuit Board Pcb Designer Relationship Specialty Start Date End Date Lisette Wright, DO [address] [place] [address] PCP - General Internal Medicine 05/09/24 Printed Circuit Board Pcb Designer Relationship Specialty Start Date End Date Lisette Wright, DO [address] [place] [address] PCP - General Internal Medicine 05/09/24 Printed Circuit Board Pcb Designer Relationship Specialty Start Date End Date Lisette Wright, DO [address] [place] [address] PCP - General Internal Medicine 05/09/24 Printed Circuit Board Pcb Designer Relationship Specialty Start Date End Date Lisette Wright, DO [address] [place] [address] PCP - General Internal Medicine 05/09/24 Printed Circuit Board Pcb Designer Relationship Specialty Start Date End Date Lisette Wooten, DO [address] [place] [address] PCP - ACO Reach 09/08/22 Lisette Wooten, DO [address] [place] [address] PCP - General Internal Medicine 08/23/22 Shanon Lobo, EM Licensed Practical Nurse Family Medicine 12/07/22 Nela Alfredo MD [address] [facility] 1 [place] [address] Consulting Physician Dermatology 12/07/22 Jacqueline Ramos MD [address] [place] [address] Consulting Physician Neurology 12/07/22 Jae Seymour MD [address] [place] [id number] Referring Physician Ophthalmology 12/08/22 Blaise Heredia DO [address] [facility] [address] [place] [address] Referring Physician Obstetrics and Gynecology 12/08/22 Magaly Douglass Ophthalmology 04/17/22 Team Status: Inactive Member Role Status Dates Lisette Wooten DO Primary Care Pr ovidmelquiades, Attending Provider Active Start: July 03, 2024 End: July 03, 2024 Printed Circuit Board Pcb Designer Relationship Specialty Start Date End Date Lisette Wright DO [address] [facility] [address] [place] [address] PCP - General Internal Medicine 05/09/24 Printed Circuit Board Pcb Designer Relationship Specialty Start Date End Date Lisette Wright DO [address] [facility] [address] [place] [address] PCP - General Internal Medicine 05/09/24 Printed Circuit Board Pcb Designer Relationship Specialty Start Date End Date Lisette Wright DO [address] [facility] [address] [place] [address] PCP - General Internal Medicine 05/09/24 Printed Circuit Board Pcb Designer Relationship Specialty Start Date End Date Lisette Wooten, DO [address] [place] [address] PCP - ACO Reach 09/08/22 Lisette Wooten, DO [address] [place] [address] PCP - General Internal Medicine 08/23/22 Shanon Lobo LPN [address] [place] [address] Licensed Practical Nurse Family Medicine 12/07/22 Nela Alfredo MD [address] [facility] [address] [place] [address] Consulting Physician Dermatology 12/07/22 Jacqueline Ramos MD [address] [address] Consulting Physician Neurology 12/07/22 Jae Seymour MD [address] [place] [address] Referring Physician Ophthalmology 12/08/22 Blaise Heredia, DO [address] [place] [address] Referring Physician Obstetrics and Gynecology 12/08/22 Magaly Douglass Ophthalmology 04/17/22 Goals (unrecognized section and content) Goals may be documented in a n alternate sectionGoals may be documented in an alternate section Reason for Visit (unrecogniz ed [...] leg Specialty Diagnoses / Procedures Referred By Contac dionisio Referred To Contact Spine Surgery Diagnoses Osteoarthritis of right hip, unspecified osteoarthritis type Jerzy Hodges, DO [address] [place] [address] Phone: tel: fax: Austin Ibrahim MD [address] [place] [address] Phone: tel: fax: Referral ID Status Reason Start Date Expiration Date V isits Requested Visits Authorized [id number] Closed Specialty Services Required/So ent's Best Interest 05/13/2024 05/13/2025 1 1 Reason Comments Routine 6 Mo Follow Up Reason Onset Date Comments Medication Refill 07/08/2024 Reason Comments Follow-up 8 wk f/u after PT, x ray 07-17-24 @ [facility] Reason Comments Pain Following up after s eeing spine. Notices the exercises they gave her sometimes makes it feel worse. Presents to ask questions regarding this and possible steroid injection. Reason Onset Date Comments [facility] order 11/07/2024 FOR RECORDS PERTAINING TO PATIENTS WHO ARE [...] BE BASED ON THE PRIMARY CLINICAL RECORDS. [employer] provides no warranty or guarantee of the accuracy or completeness of information in this document.
--- OUTSIDE RECORDS SUMMARY | 2024-11-29 08:10 | XMS_ITS | Encounter Summary ---
Author Organization [facility] Address [address] [place] [address] Care Team Providers Care Marine Radio Installer And Servicer Name Role Phone Listete Wooten DO Unavailable [phone] Lisette Wooten DO Primary Care Provider Shanon Lobo LPN Unavailable Nela Alfredo MD Unavailable [phone] Jama Ramos MD Unavailable [phone] Jae Seymour MD Unavailable Blaise Heredia DO Unavailable [phone] Ana Silveira RN Unavailable [phone] Encounter Details Date Type Department Care Team (Late st Contact Info) Description 06/27/2023 External Result Encounter [facility] External Department Unsolicited Blaise eHredia, DO [address] [place] [address] Social History Tobacco Use Types Packs/Day Years [...] Date Recorded Patient Health Questionnaire-2 Score 0 04/28/2023 Comments No Sex and Gender Information Value [...] Medicine [address] [place] [address] Lisette Wooten, DO [address] [place] [address] 04/28/2025 11:00 AM EST Office Visit [facility] [address] [place] [phone] Blaise Heredia, DO [address] [place] [address] documented as of this encounter Procedures Procedure Name Priority Date/Time Associated Diagnosis Comments BI MAMMOGRAM SCREENING TOMOSYNTHESIS BILATERAL 06/27/2023 11:38 AM EDT documented in this encounter Results * Bilateral screening mammogram with tomosynthesis (06/27/2023 11:38 AM EDT) Anatomical Region Laterality Modality Breast Bilateral Mammography 06/27/2023 11:3 8 AM EDT Impressions 06/27/2023 11:42 AM EDT NO MAMMOGRAPHIC EVIDENCE OF MALIGNANCY. ROUTINE [...] Carballo Jr., D.O.06/27/2023 11:40 AM Dictation Location: [facility] Transcribed By: [facility] 06/27/23 1140 Dictated By: Clay Carballo Jr, DO 06/27/23 1138 Signed By: <Electronically signed by Clay Carballo Jr, DO in OV> 06/27/23 1140 Narrative 06/27/2023 11:42 AM EDT [place] [address] Mammography Report Signed Patient: Xiomara Blanco MR#: [id number] 047 : 1950 Acct:[id number] Age/Sex: 73 / F ADM Date: 06/27/23 Loc: CT Room: Type: REG CLI Attending Dr: Blaise Heredia DO Copies to: DO Blaise Santillan DO Ordering Provider: Blaise Heredia DO Date of Service: 06/27/23 MM/MM screening mammo BI w/CAD: SCREENING CLINICAL DATA: Screening for malignancy. SCREENING MAMMOGRAM - FULL FIELD DIGITAL WITH TOMOSYNTHESIS AND CAD COMPARISON:Mammograms dating back to 2019. Tomosynthesis craniocaudal and [...] screening mammo BI w/CAD Procedure Note Radiology, Radiologist, MD - 06/27/2023 [place] [id number] Mammography Report Signed Patient: Xiomara Blanco MMR#: [id number] : 1950Acct:[id number] Age/Sex: 73 / FADM Date: 06/27/23 Loc: CT Room:Type: REG CLI Attending : Blaise Heredia DO Copies to: DO Blaise Santillan DO Ordering Provider: Blaise Heredia DO Date of Service: 06/27/23 MM/MM screening mammo BI w/CAD: SCREENING CLINICAL DATA: Screening for malignancy. SCREENING MAMMOGRAM - FULL FIELD DIGITAL WITH TOMOSYNTHESIS AND CAD COMPARISON:Mammograms dating back to 2019. Tomosynthesis craniocaudal and mediolateral oblique views of both breastswere obtained using low- dose digital technique. This examination was reviewed with the aid ofCAD. FINDINGS: The breast tissue is composed of scattered fibroglandular densities.There are no dominant masses, typically malignant calcifications or architectural distortion. There hasbeen no significant interval change. MM/MM screening mammo [...] date for thenext mammogram. Impression dictated by: Clay Carballo Jr., D.O.06/27/2023 11:40 AM Dictation Location: [facility] Transcribed By: [facility] 06/27/23 1140 Dictated By: Clay Carballo Jr, DO 06/27/23 1138 Signed By: <Electronically signed by Clay Carballo Jr, DO inOV> 06/27/23 1140 Blaise Heredia DO IMG BI PROCEDURES Final Resu lt documented in this encounter Visit Diagnoses Not on filedocumented in this encounter Care Teams Marine Radio Installer And Servicer Relationship Specialty Start Date End Date Lisette Wooten DO [address] [place] [address] PCP - ACO Reach 09/08/22 Lisette Wooten DO [address] [place] [address] PCP - General Internal Medicine 08/23/22 Shanon Lobo LPN [address] [place] [address] Licensed Practical Nurse Family Medicine 12/07/22 Nela Alfredo MD [address] [address] Consulting Physician Dermatology 12/07/22 Jama Ramos MD [address] [address] Consulting Physician Neurology 12/07/22 Jae Seymour MD [address] [place] [address] Referring Physician Ophthalmology 12/08/22 Blaise Heredia DO [address] [facility] [address] [place] [address] Referring Physician Obstetrics and Gynecology 12/08/22 Ana Silveira, LINSEY [address] [facility] [address] [place] [address] Registered Nurse Family Medicine 11/13/24 Magaly Douglass Ophthalmology 04/17/22 documented as of this encounter
--- OUTSIDE RECORDS SUMMARY | 2024-11-29 08:10 | XMS_ITS | Encounter Summary ---
Author Organization [facility] Address [address] [place] [address] Care Team Providers Care Consulting Marine Engineer Name Role Phone Lisette Wooten DO Unavailable [phone] Lisette Wooten DO Primary Care Provider Shanon Lobo LPN Unavailable Nela Alfredo MD Unavailable [phone] Jama Ramos MD Unavailable [phone] Jae Seymour MD Unavailable Blaise Heredia DO Unavailable [phone] Ana Silveira RN Unavailable [phone] Encounter Details Date Type Department Care Team (Late st Contact Info) Description 10/17/2023 Orders Only [facility] [place] [facility] [address] [place] [phone] A, Unknown Practice [address] [place] [phone] Social History Tobacco Use Types Packs/Day Years [...] Medicine [address] [place] [address] Lisette Wooten DO [address] [place] [address] 04/28/2025 11:00 AM EST Office Visit [facility] [address] [place] [address] Blaise Heredia DO [address] [place] [address] documented as of this encounter Procedures Procedure Name Priority Date/Time Associated Diagnosis Comments CBC WITH AUTO DIFFERENTIAL - WAM AND NON-WAM Routine 10/17/2023 10:53 AM EDT documented in this encounter Results * CBC and differential (10/17/2023 10:53 AM EDT) Blood Venous blood specimen / Unknown us Unknown Practice A LAB BLOOD ORDERABLES Final Re sult documented in this encounter Visit Diagnoses Not on filedocumented in this encounter Care Teams Consulting Marine Engineer Relationship Specialty Start Date End Date Lisette Wooten DO [address] [place] [address] PCP - ACO Reach 09/08/22 Lisette Wooten, DO [address] [place] [address] PCP - General Internal Medicine 08/23/22 Shanon Lobo LPN [address] [place] [address] Licensed Practical Nurse Family Medicine 12/07/22 Nela Alfredo MD [address] [address] Consulting Physician Dermatology 12/07/22 Jama Ramos MD [address] [address] Consulting Physician Neurology 12/07/22 Jae Seymour MD [address] [place] [address] Referring Physician Ophthalmology 12/08/22 Blaise Heredia, DO [address] [place] [address] Referring Physician Obstetrics and Gynecology 12/08/22 Ana Silveira, LINSEY [address] [place] [address] Registered Nurse Family Medicine 11/13/24 Magaly Douglass Ophthalmology 04/17/22 documented as of this encounter
--- OUTSIDE RECORDS SUMMARY | 2024-11-29 08:10 | XMS_ITS | Clinical Summary ---
Author Organization [facility] Address [address] [place] [address] Care Team Providers Care Director Patient Accounting Name Role Phone Lisette Pierce DO Primary Care Provider Allergies Active Allergy Reactions Criticality Noted Date Comments Acetylcysteine Rash Low 11/29/2022 Other Reaction(s): skin rash/when touches hands Amantadine Other (See Comments) 06/17/2021 Other Reaction(s): constipation Diclofenac Other (See Comments) 06/10/2020 Flushing/sore mouth/puffiness in face Other Reaction(s): flushing/sore mouth/puffiness in face Other Reaction(s): Redness of Skin Medications levothyroxine (SYNTHROID, LEVOTHROID) 50 MCG tablet Take 1 (one) tablet (50 mcg total) by mouth once daily . Active atorvastatin (LIPITOR) 40 MG tablet Take 1 (one) tablet (40 mg total) by mouth daily . Active aspirin 81 MG EC tablet Take 1 (one) tablet (81 mg total) by mouth daily . Active calcium citrate-vitamin D (CITRACAL+D) 315 mg-5 mcg (200 unit) per tablet Take 1 (one) tablet by mouth 2 (two) times a day . Active multivitamin per tablet Take 1 (one) tablet by mouth daily . Active calcium-vitamin D (OS-CYRUS +D) 250 mg-3.125 mcg (125 unit) Tab Take 1 (one) tablet by mouth 2 (two) times a day with meals . Active multivitamin with minerals tablet Take 1 (one) tablet by mouth daily . Active cetirizine (ZYRTEC) 10 MG tablet Take 1 (one) tablet (10 mg total) by mouth daily . Active Active Problems No known active problems Encounters Date Type Department Care Team Description 09/25/2024 12:42 PM EDT - 09/25/2024 11:59 PM EDT Hospital Encounter [facility] [address] [place] [address] Jerzy Hodges DO Discharge Disposition: Home 09/19/2024 1:15 PM EDT Office Visit [facility] [address] [place] [phone] Jerzy Hodges, Osteoarthritis of right hip, unspecified osteoarthritis type (Primary Dx) 09/19/2024 Travel from Last 3 Months Social History Tobacco Use Types Packs/Day Years Used Date Smoking Tobacco: Never Smokeless Tobacco: Never Tobacco Cessation:Counseling Given: No Alcohol Use Standard Drinks/Week Comments Never 0 (1 standard drink = 0.6 oz pur e alcohol) Comments Unknown Sex and Gender Information Value Date Recorded Sex Assigned at Not on file Legal Sex Female 9:52 AM EST Gender Identity Not on file Sexual Orientation Not on file Last Filed Vital Signs Vital Sign Reading Time Taken Comments Blood Pressure 105/69 07/17/2024 12:40 PM EDT Pulse 84 07/17/2024 12:40 PM EDT Temperature - - Respiratory Rate - - Oxygen Saturation - - Inhaled Oxygen Concentration - - Weight 83.9 kg (185 lb) 09/19/2024 12:49 PM EDT Height 165.1 cm (5' 5 ) 09/19/2024 12:49 PM EDT Body Mass Index 30.79 09/19/2024 12:49 PM EDT Plan of Treatment Health Maintenance Due Date Last Done Comments CT Colonography 1950 Dexa Scan 1950 Fecal DNA 1950 Fecal occult blood test (FOBT,FIT) 1950 Medicare Wellness Visit 1952 Depression Screening/Follow- Up (PHQ-2/9) 1961 Hepatitis C Screening 1967 Flexible sigmoidoscopy 1999 Falls Risk Assessment 2014 Tetanus: Every 10yrs 06/20/2018 06/20/2008 COVID-19 Vaccine (2023-2 5 season) 2023 07/07/2020, 06/15/2020 Respiratory Syncytial Virus Immunization: Risk, 60-74 Risk, or 75+ (1 - 1-dose 75+ series) 2024 Influenza Vaccine (#1) 2024 , 01/31/2023, 01/24/2022, Additional history exists Mammogram 07/03/2025 07/03/2024, 06/15, 07/03/2024, Additional history exists Colonoscopy 06/29/2031 06/28/2021 Colorectal Cancer Screening/Monitoring 06/29/2031 Pneumococcal Vaccine: Age 50+ Completed 11/14/2019, 08/05/2016 Zoster Vaccines Completed 02/22/2020, 11/27/2019 Procedures Procedure Name Priority Date/Time Associated Diagnosis Comments XR ASPIRATION/INJECTI ON LARGE JOINT RIGHT Routine 09/25/2024 1:56 PM EDT Osteoarthritis of right hip, unspecified osteoarthritis type from Last 3 Months Results * XR Aspiration Injection Large Joint Right (09/25/2024 1:56 PM EDT) Anatomical Region Laterality Modality Radio Fluoroscop y 09/25/2024 2:39 PM EDT Impressions 09/25/2024 3:49 PM EDT The patient underwent a fluoroscopic guided intra-articular right hip injection of Marcaine and Kenalog as described above. [facility] Workstation ID: [id number] Narrative 09/25/2024 3:49 PM EDT EXAMINATION: XR ASPIRATION/INJECTION LARGE JOINT RIGHT HISTORY: [...] the joint space. No complications were appreciated. Procedure Note Fanny Driscoll DO - 09/25/2024 EXAMINATION: XR ASPIRATION/INJECTION LARGE JOINT RIGHT HISTORY: [...] was discussed. Complications such as bleeding and infectionwere discussed. Consent was obtained. Time-out was performed. Patient was placed supine in fluoroscopy. A suitable area for approachwas marked by x-ray. The skin was sterilely prepared. Local lidocainewas injected. Subsequently a 22-gauge spinal needle was advanced andpositioned within the femoral neck. 2 mL of iodine contrast confirmedlocation. Subsequently 4 mL of Marcaine and 80 mg of Kenalog was injectedwithin the joint space. No complications were appreciated. IMPRESSION: The patient underwent a fluoroscopic guided intra-articular right hipinjection of Marcaine and Kenalog as described above. [facility]/alt Workstation ID: [id number] Jerzy Hodges DO IMG FLUOROSCOPY ORDERABL ES Final Result from Last 3 Months Insurance MEDICARE PART A & B LIFE (NO AUTO) Advance Directives For more information, please contact: [phone] Documents on File Type Date Recorded Patient [employer] Expl anation Advance Directives and Livin g Will 05/10/2024 7:59 AM Care Teams Director Patient Accounting Relationship Specialty Start Date End Date Lisette Pierce DO [address] [place] [id number] PCP - General Internal Medicine 05/09/24
--- OUTSIDE RECORDS SUMMARY | 2024-11-29 08:10 | XMS_ITS | Encounter Summary ---
Author Organization [facility] Address [address] [place] [address] Care Team Providers Care Dish Stacker Name Role Phone Lisette Wooten DO Unavailable [phone] Lisette Wooten DO Primary Care Provider Shanon Lobo LPN Unavailable Nela Alfredo MD Unavailable [phone] Jama Ramos MD Unavailable [phone] Jae Seymour MD Unavailable Blaise Heredia DO Unavailable Ana Silveira RN Unavailable Encounter Details Date Type Department Care Team (Late st Contact Info) Description 12/11/2023 Orders Only [facility] [place] [facility] [address] [place] [phone] A, Unknown Practice [address] [place] [address] Social History Tobacco Use Types Packs/Day [...] on file documented as of this encounter Miscellaneous Notes * Result Encounter Note - Lisette Wooten DO - 12/11/2023 11:51 AM EDT Please advise Xiomara that the hip x-ray shows moderate OA changes. Would recommend Ortho referral for any ongoing pain documented in this encounter Plan of Treatment Upcoming Encounters Date Type Department Care Team (Late st Contact Info) Description 12/10/2024 9:00 AM EDT Office Visit [facility] [address] [place] [address] Lisette Wooten DO [address] [place] [address] 04/28/2025 11:00 AM EST Office Visit [facility] [address] [place] [address] Blaise Heredia DO [address] [place] [address] documented as of this encounter Procedures Procedure Name Priority Date/Time Associated Diagnosis Comments XR HIP 2 OR 3 VW RIGHT Routine 12/08/2023 11:51 AM EDT documented in this encounter Results * XR hip right 2 or 3 views (12/08/2023 11:51 AM EDT) Anatomical Region Laterality Modality Lower Extremities, Hip Right Radiograp hic Imaging us Unknown Practice A IMG XR PROCEDURES Final Resul t documented in this encounter Visit Diagnoses Not on filedocumented in this encounter Care Teams Dish Stacker Relationship Specialty Start Date End Date Lisette Wooten, DO [address] [place] [address] PCP - ACO Reach 09/08/22 Lisette Wooten, DO [address] [place] [address] PCP - General Internal Medicine 08/23/22 Shanon Lobo LPN [address] [place] [address] Licensed Practical Nurse Family Medicine 12/07/22 Nela Alfredo MD [address] [address] Consulting Physician Dermatology 12/07/22 Jama Ramos MD [address] [address] Consulting Physician Neurology 12/07/22 Jae Seymour MD [address] [place] [address] Referring Physician Ophthalmology 12/08/22 Blaise Heredia, DO [address] [place] [address] Referring Physician Obstetrics and Gynecology 12/08/22 Ana Silveira, LINSEY [address] [place] [address] Registered Nurse Family Medicine 11/13/24 Magaly Douglass Ophthalmology 04/17/22 documented as of this encounter
--- OUTSIDE RECORDS SUMMARY | 2024-11-29 08:11 | XMS_ITS | Encounter Summary ---
Author Organization [facility] Address [address] [place] [address] Care Team Providers Care Anode Builder Name Role Phone Lisette Wooten DO Unavailable Lisette Wooten DO Primary Care Provider Shanon Lobo LPN Unavailable [phone] Nela Alfredo MD Unavailable [phone] Jama Ramos MD Unavailable [phone] Jae Seymour MD Unavailable Blaise Heredia DO Unavailable [phone] Ana Silveira RN Unavailable Encounter Details Date Type Department Care Team (Late st Contact Info) Description 11/29/2022 Orders Only [facility] [address] [place] [phone] Arcelia Castorena, CERTIFIED NURSE PRACTITIONER [address] [place] [address] Social History Tobacco Use Types Packs/Day Years [...] Description 12/10/2024 9:00 AM EDT Office Visit [facility] [address] [place] [address] Lisette Wooten, DO [address] [place] [address] 04/28/2025 11:00 AM EST Office Visit [facility] [address] [place] [address] Blaise Heredia, DO [address] [place] [address] documented as of this encounter Visit Diagnoses Not on filedocumented in this encounter Care Teams Anode Builder Relationship Specialty Start Date End Date Lisette Wooten DO [address] [place] [address] PCP - ACO Reach 09/08/22 Lisette Wooten DO [address] [place] [address] PCP - General Internal Medicine 08/23/22 Shanon Lobo LPN [address] [place] [address] Licensed Practical Nurse Family Medicine 12/07/22 Nela Alfredo MD [address] [place] [address] Consulting Physician Dermatology 12/07/22 Jama Ramos MD [address] [place] [address] Consulting Physician Neurology 12/07/22 Jae Seymour MD [address] [place] [address] Referring Physician Ophthalmology 12/08/22 Blaise Heredia DO [address] [facility] [address] [place] [address] Referring Physician Obstetrics and Gynecology 12/08/22 Ana Silveira, LINSEY [address] [facility] [address] [place] [address] Registered Nurse Family Medicine 11/13/24 Magaly Douglass Ophthalmology 04/17/22 documented as of this encounter
--- OUTSIDE RECORDS SUMMARY | 2024-11-29 08:11 | XMS_ITS | Encounter Summary ---
Author Organization [facility] Address [address] [place] [address] Care Team Providers Care Certified Physical Therapist Assistant Name Role Phone Lisette Wooten DO Unavailable [phone] Lisette Wooten DO Primary Care Provider Shanon Lobo LPN Unavailable Nela Alfredo MD Unavailable [phone] Jama Ramos MD Unavailable Jae Seymour MD Unavailable [phone] Blaise Heredia DO Unavailable [phone] Ana Silveira RN Unavailable [phone] Encounter Details Date Type Department Care Team (Late st Contact Info) Description 11/16/2022 Orders Only [facility] [place] [facility] [address] [place] [phone] A, Unknown Practice [address] [place] [address] Social History Tobacco Use Types Packs/Day [...] [address] [place] [phone] Lisette Wooten, DO [address] [place] [address] 04/28/2025 11:00 AM EST Office Visit [facility] [address] [place] [address] Blaise Heredia, [address] [place] [address] documented as of this encounter Procedures Procedure Name Priority Date/Time Associated Diagnosis Comments SCANNED LABS Routine 11/15/2022 1:03 PM EDT documented in this encounter Results * SCANNED LABS (11/15/2022 1:03 PM EDT) us Unknown Practice A LAB CHG PERFORMABLES Final Re sult documented in this encounter Visit Diagnoses Not on filedocumented in this encounter Care Teams Certified Physical Therapist Assistant Relationship Specialty Start Date End Date Lisette Wooten DO [address] [place] [address] PCP - ACO Reach 09/08/22 Lisette Wooten DO [address] [place] [address] PCP - General Internal Medicine 08/23/22 Shanon Lobo LPN [address] [place] [address] Licensed Practical Nurse Family Medicine 12/07/22 Nela Alfredo MD [address] [address] Consulting Physician Dermatology 12/07/22 Jama Ramos MD [address] [address] Consulting Physician Neurology 12/07/22 Jae Seymour MD [address] [place] [address] Referring Physician Ophthalmology 12/08/22 Blaise Heredia DO [address] [facility] [address] [place] [address] Referring Physician Obstetrics and Gynecology 12/08/22 Ana Silveira, LINSEY [address] [facility] [address] [place] [address] Registered Nurse Family Medicine 11/13/24 Magaly Douglass Ophthalmology 04/17/22 documented as of this encounter
--- OUTSIDE RECORDS SUMMARY | 2024-11-29 08:11 | XMS_ITS | Encounter Summary ---
Author Organization [facility] Address [address] [facility] [place] [address] Care Team Providers Care Nuclear Fuel Enrichment Technician Name Role Phone Lisette Wooten DO Unavailable [phone] Lisette Wooten DO Primary Care Provider Shanon Lobo LPN Unavailable [phone] Nela Alfredo MD Unavailable [phone] Jama Ramos MD Unavailable Jae Seymour MD Unavailable [phone] Blaise Heredia DO Unavailable [phone] Ana Silveira RN Unavailable [phone] Encounter Details Date Type Department Care Team (Late st Contact Info) Description 12/10/2023 Clinisync Result Encounter [facility] Unsolicited Lisette Wooten DO [address] [place] [address] Social History Tobacco Use Types [...] Medicine [address] [place] [address] Lisette Wooten, DO [address] [place] [address] 04/28/2025 11:00 AM EST Office Visit [facility] [address] [place] [phone] Blaise Heredia, DO [address] [place] [address] documented as of this encounter Procedures Procedure Name Priority Date/Time Associated Diagnosis Comments XR HIP 2 OR 3 VW RIGHT 12/10/2023 8:41 PM EDT documented in this encounter Results * XR hip right 2 or 3 views (12/10/2023 8:41 PM EDT) Anatomical Region Laterality Modality Lower Extremities, Hip Right Radiograp hic Imaging 12/10/2023 8:41 PM EDT Narrative 12/10/2023 8:44 PM EDT The [address] [address] XRay Report Signed Patient: VALENTINE BLANCO MR#: [id number] : 1950 Acct:[id number] Age/Sex: 73 / F ADM Date: 12/08/23 Loc: RAD Attending Dr: LISETTE MAYORGA Ordering Physician: LISETTE WRIGHT Date of Service: 12/08/23 Procedure(s): XR hip RT min 2V Accession Number(s): [id number] cc: [place] [address] Patient Name: VALENTINE BLANCO MRN: [id number] date: 1950 Sex: F Assigned Patient Location: [facility] Current Patient Location: Accession/Order Number: [id number] Exam Date: 12/08/2023 11:00 Report Date: 12/10/2023 20:41 At the request of: LISETTE MAYORGA Procedure: XR hip RT min 2V PROCEDURE: XR hip RT min 2V COMPARISON: None. HISTORY: Right Hip Pain M25.551 FINDINGS: BONES:No acute fracture or dislocation. Moderate osteoarthritis with joint space narrowing marginal osteophyte formation and sclerosis. SOFT TISSUES:Negative. No visible soft tissue swelling. EFFUSION:None visible. OTHER: Negative. XR/XR hip RT min 2V IMPRESSION: Moderate osteoarthritis Electronically authenticated by: GILDARDO HOLLAND Date: 12/10/2023 20:41 Dictated By: Gildardo Holland M.D. Signed By: 12/10/232043 DD/ 40 TD/TT: Route Manager: Procedure Note Radiology, Radiologist, MD - 12/10/2023 [place] [address] XRay Report Signed Patient: VALENTINE BLANCO MMR#: [id number] : 1950Acct:[id number] Age/Sex: 73 / FADM Date: 12/08/23 Loc: RAD Attending Dr: LISETTE MAYORGA Ordering Physician: LISETTE WRIGHT Date of Service: 12/08/23 Procedure(s): XR hip RT min 2V Accession Number(s): [id number] cc: LISETTE WRIGHT [facility] [address] [place] [address] Patient Name: VALENTINE BLANCO MRN: [id number] date: 1950 Sex: F Assigned Patient Location: [facility] Current Patient Location: Accession/Order Number: [id number] Exam Date: 12/08/2023 11:00 Report Date: 12/10/2023 20:41 At the request of: LISETTE MAYORGA Procedure: XR hip RT min 2V PROCEDURE: XR hip RT min 2V COMPARISON: None. HISTORY: Right Hip Pain M25.551 FINDINGS: BONES:No acute fracture or dislocation. Moderate osteoarthritis with joint space narrowing marginal osteophyte formation and sclerosis. SOFT TISSUES:Negative. No visible soft tissue swelling. EFFUSION:None visible. OTHER: Negative. XR/XR hip RT min 2V IMPRESSION: Moderate osteoarthritis Electronically authenticated by: GILDARDO HOLLAND Date: 12/10/2023 20:41 Dictated By: Gildardo Holland M.D. Signed By:12/10/232043 DD/ 40 TD/TT: Route Manager: Lisette Wooten DO IMG XR PROCEDURES Final Result documented in this encounter Visit Diagnoses Not on filedocumented in this encounter Care Teams Nuclear Fuel Enrichment Technician Relationship Specialty Start Date End Date Lisette Wooten DO [address] [place] [address] PCP - ACO Reach 09/08/22 Lisette Wooten DO [address] [place] [address] PCP - General Internal Medicine 08/23/22 Shanon Lobo LPN [address] [place] [address] Licensed Practical Nurse Family Medicine 12/07/22 Nela Alfredo MD [address] [address] Consulting Physician Dermatology 12/07/22 Jama Ramos MD [address] [address] Consulting Physician Neurology 12/07/22 Jae Seymour MD [address] [place] [address] Referring Physician Ophthalmology 12/08/22 Blaise Heredia DO [address] [facility] [address] [place] [address] Referring Physician Obstetrics and Gynecology 12/08/22 Ana Silveira, LINSEY [address] [address] [place] [address] Registered Nurse Family Medicine 11/13/24 Magaly Douglass Ophthalmology 04/17/22 documented as of this encounter
[2024-11-29 08:27] LABS: Hematocrit 45.5 % (36.0-48.0); Hemoglobin 15.7 g/dL (12.0-16.0); Immature Granulocytes Abs Auto 0.00 10^3/uL (0.00-0.03); Immature Granulocytes Pct Auto 0.0 % (0.0-0.5); Lymphocytes Absolute Auto 1.5 10^3/uL (1.2-3.8); Mean Corpuscular HGB Conc 34.5 g/dL (29.9-35.2); Mean Corpuscular Hemoglobin 30.1 pg (26.7-34.0); Mean Corpuscular Volume 87.2 fL (81.0-99.0); Platelet Count 214 10^3/uL (150-450); Red Blood Count 5.22 10^6/uL (4.20-5.40); White Blood Count 5.5 10^3/uL (4.0-11.0)
[2024-11-29 09:00] LABS: Alanine Aminotransferase 26 U/L (14-59); Albumin Globulin Ratio 1.1; Albumin Level 3.8 g/dL (3.4-5.0); Alkaline Phosphatase 90 U/L (46-116); Anion Gap 12.1; Aspartate Amino Transferase 16 U/L (15-37); Blood Urea Nitrogen 17.0 mg/dL (7.0-18.0); Calcium 8.7 mg/dL (8.5-10.1); Carbon Dioxide 25.8 mmol/L (21.0-32.0); Chloride 108 mmol/L (98-107); Cholesterol 146 mg/dL (<=200); Estimated GFR (African America >60 (>=60 mL/min/1.73m^2); Estimated GFR (Non-African Ame >60 (>=60 mL/min/1.73m^2); Globulin 3.4 g/dL; Glucose 96 mg/dL (74-106); HDL Cholesterol 57 mg/dL (40-60); Potassium 3.9 mmol/L (3.5-5.1); Sodium 142 mmol/L (136-145); Thyroid Stimulating Hormone 1.409 uIU/mL (0.358-3.740); Total Protein 7.2 g/dL (6.4-8.2); Triglycerides 62 mg/dL (<=150); VLDL CHOLESTEROL 12.4 mg/dL
== END 2024-11-29 07:59 | disposition home or self-care (01) ==
LOC: LAB 08:05
PROVIDERS: PCP Internal Medicine; Visit Provider Internal Medicine
DX: E21.3 Hyperparathyroidism, unspecified (principal); E78.2 Mixed hyperlipidemia; E89.0 Postprocedural hypothyroidism
CPT/HCPCS: 36415; 80053; 80061; 82306; 83970; 84439; 84443; 85025

== ENCOUNTER 2025-02-14 10:29 | Outpatient (RCR) | payer MEDICARE, OTHER, SELFPAY | END 2025-03-05 10:39 | disposition home or self-care (01) | LOC: PT 10:29 | PROVIDERS: PCP Internal Medicine; Visit Provider Student in an Organized Health Care Education/Training Program | DX: M16.11 Unilateral primary osteoarthritis, right hip (principal) | CPT/HCPCS: 97110; 97161; 97530 ==